=== PATIENT | female | born 1960 | race Caucasian/White ===

== ENCOUNTER 2020-09-07 19:32 | Emergency (ER) | payer OTHER, SELFPAY ==
--- NOTE | ~2020-09-07 | CT_ITS ---
EXAMINATION: CT brain wo con, CT facial bones wo con DATE: 09/07/2020 20:29 INDICATION: Head and facial injury post fall TECHNIQUE: 1. Computed tomography (CT) of the head was performed without intravenous contrast. Sagittal and agueda nal reconstructions were obtained. Automated exposure control and iterative reconstruction technique were employed. The dose-length product was 681 mGy-cm. 2. CT of the facial bones and maxillofacial region was performed without intravenous contrast. Sagitt al and coronal reconstructions were obtained. Automated exposure control and iterative reconstruction technique were employed. The dose-length product was 536 mGy-cm. COMPARISON: 05/18/2009 FINDINGS: Head CT: No calvarial fracture. Large region of encephalomalacia in the right temporal lobe consistent with ch ronic infarct. Additional small old lacunar infarcts at the left thalamus and left basal ganglia incl uding the head of the caudate nucleus, anterior limb of the internal capsule and lentiform nucleus. T here is moderate scattered white matter hypoattenuation consistent with chronic small vessel ischemic disease. No acute intracranial hemorrhage, acute infarction or abnormal extra axial fluid collection . Ex vacuo dilation of the occipital and temporal horns of the right lateral ventricle. Ventricles ar e otherwise normal. No mass/mass effect. Mastoid air cells and middle ear cavities are clear. Intracr anial calcified cerebral atherosclerosis is noted at the carotid siphons. Maxillofacial CT: Small anterior frontal scalp hematoma. No maxillofacial fractures. Mild mucosal thickening the bilate ral maxillary sinuses. Orbits are normal. IMPRESSION: 1. No fracture or acute intracranial process. 2. Large old infarct in the right temporal lobe and smaller lacunar infarcts at the left thalamus and left basal ganglia. Line 3. Moderate scattered white matter hypoattenuation consistent with chronic small vessel ischemic dise ase. Reviewed, dictated and finalized at location A. IMPRESSION: 1. No fracture or acute intracranial process. 2. Large old infarct in the right temporal lobe and smaller lacunar infarcts at the left thalamus and left basal ganglia. Line 3. Moderate scattered white matter hypoattenuation consistent with chronic smal l vessel ischemic disease.
--- NOTE | ~2020-09-07 | CT_ITS ---
EXAMINATION: CT lumbar spine wo con DATE: 09/07/2020 20:30 INDICATION: Low back pain post injury TECHNIQUE: Computed tomography (CT) of the lumbar spine was performed without intravenous contrast. A utomated exposure control and iterative reconstruction technique were employed. The dose-length produ ct was 1087.13 mGy-cm. COMPARISON: None FINDINGS: Partially visualized mild thoracolumbar dextroscoliosis. 6 mm anterolisthesis L4 on L5. 1-2 mm retrol isthesis T12 on L1 and 2 mm retrolisthesis L1 on L2. Vertebral body heights are normal. No fracture. Moderate to severe disc height loss at L5-S1. Moderate disc height loss at L4-L5. Mild disc height lo ss at T12-L1 and L1-L2. Cholelithiasis. The following disc levels are specifically discussed: T12-L1: Disc is mildly bulging. There is mild bilateral facet joint osteoarthritis. There is no neura l foraminal stenosis. There is no central canal stenosis. L1-L2: Disc is mildly bulging. There is mild bilateral facet joint osteoarthritis. There is mild left neural foraminal stenosis. There is mild central canal stenosis. L2-L3: Disc is bulging. There is mild bilateral facet joint osteoarthritis. There is no neural forami nal stenosis. There is mild central canal stenosis. L3-L4: Disc is bulging. There is mild bilateral facet joint osteoarthritis. There is mild right neura l foraminal stenosis. There is mild central canal stenosis. L4-L5: Disc is bulging. There is hypertrophy of the ligamentum flavum. There is severe bilateral face t joint osteoarthritis. There is mild to moderate bilateral neural foraminal stenosis. There is moder ate central canal stenosis. L5-S1: Small posterior disc osteophyte complex. There is moderate bilateral facet joint osteoarthriti s. There is moderate left and mild right neural foraminal stenosis. There is mild central canal steno sis. IMPRESSION: 1. No acute fracture. 2. Moderate lumbar spondylosis with 6 mm anterolisthesis L4 on L5 resulting in moderate central canal stenosis at this level. Reviewed, dictated and finalized at location A.
[2020-09-07 19:32] VITALS: BP 172/101; PULSE 86; RESP 18; TEMP 36.8; O2SAT 100
--- NOTE | 2020-09-07 20:01 | ED.FALL ---
HPI - Fall General Chief Complaint: Fall Stated Complaint: body aches, freq falls Time Seen by Provider: 09/07/20 19:38 Source: patient Mode of arrival: ambulatory Limitations: no limitations History of Present Illness HPI Narrative: Patient is a 60-year-old female complaining of a fall yesterday after losing her balance, states she hit her forehead and face on the floor. Patient states that she has a history of falls due to balance problems has been going on for a long time, years . Patient also complaining of low back pain but states that it is nothing new since she has a history of a defect of her lower spine. Patient states that her pain is mild and does not want anything for pain. Denies loss of consciousness. Patient denies any headache, neck pain, chest pain, abdominal pain, pelvic pain or any extremity pain/injury. Patient states that she was able to get up and ambulate after her fall. Related Data Allergies Allergy/AdvReac Type Severity Reaction Status Date / Time clindamycin Allergy Unknown Nausea Verified 04/16/18 14:38 hydrochlorothiazide Allergy Unknown Skin Verified 04/16/18 14:38 Reaction Penicillins Allergy Unknown allergic Verified 04/16/18 14:38 since childhood Sulfa (Sulfonamide Allergy Unknown Verified 04/16/18 14:38 Antibiotics) Review of Systems Review of Systems: All systems reviewed & are unremarkable except as noted in HPI and below Constitutional: Constitutional: Denies body ache(s), Denies chills, Denies excessive sweating, Denies fatigue, Denies fever(s), Denies headache(s), Denies lethargy, Denies malaise, Denies weakness and Denies weight loss Eyes: Eyes: Denies blurry vision, Denies change in vision and Denies loss of vision ENT: Denies dizziness, Denies ear discharge, Denies headache(s), Denies lip swelling, Denies epistaxis, Denies nasal congestion, Denies neck pain, Denies throat swelling and Denies tongue swelling Cardiovascular: Cardiovascular: Denies chest pain, Denies chest pain at rest, Denies chest pain with activity, Denies diaphoresis, Denies rapid heart rate, Denies edema, Denies irregular heart rhythm, Denies lightheadedness, Denies palpitations, Denies dyspnea and Denies dyspnea on exertion Respiratory: Respiratory: Denies chest congestion, Denies cough, Denies hemoptysis, Denies dyspnea and Denies dyspnea on exertion Gastrointestinal: Gastrointestinal: Denies abdominal pain, Denies melena, Denies hematochezia, Denies diarrhea, Denies nausea, Denies vomiting and Denies hematemesis Musculoskeletal: Musculoskeletal: Denies abnormal gait, Denies deformity, Denies joint swelling, Denies limited range of motion, Denies neck pain and Denies numbness Neurologic: Denies Abnormal speech present, Denies abnormal gait, Denies confusion, Denies dizziness, Denies headache(s), Denies focal weakness, Denies loss of vision, Denies numbness, Denies Other visual disturbances, Denies Sensory deficit (Neuro) and Denies weakness Psychiatric: Psychiatric: Denies confusion, Denies depression, Denies auditory hallucinations, Denies homicidal ideation and Denies suicidal ideation Endocrine: Endocrine: Denies cold intolerance, Denies excessive sweating, Denies fatigue, Denies heat intolerance and Denies palpitations Hematologic/Lymphatic: Hematologic/Lymphatic: Denies easy bleeding and Denies easy bruising Allergic/Immunologic: Allergic/Immunologic: Denies lip swelling, Denies throat swelling and Denies tongue swelling PMFSH Past Medical History Medical History Unspecified intracranial hemorrhage Family History Family History Father Diabetes mellitus Mother Diabetes mellitus Hypertension Family history of elevated blood lipids Family history of malignant neoplasm of skin Sibling Diabetes mellitus Hypertension Grandparent Family history of malignant neoplasm of
[2020-09-07 20:12] LABS: Glucose Point of Care 100 (65-105)
--- NOTE | 2020-09-07 20:58 | PC.NURSE ---
pt refusing to have blood drawn, Dr. Willard aware.
--- NOTE | 2020-09-07 21:52 | PC.NURSE ---
made contact with [employer] to transfer pt back home eta [id number]
[2020-09-07 23:52] VITALS: BP 156/97; PULSE 79; RESP 16; O2SAT 98
[2020-09-08 01:10] VITALS: BP 131/84; PULSE 78; RESP 16; TEMP 36.3; O2SAT 97
--- NOTE | 2020-09-08 01:20 | PC.NURSE ---
rafiq arrived at 0110
== END 2020-09-08 01:11 | disposition home or self-care (01) ==
PROVIDERS: Emergency Provider Emergency Medicine; PCP Family Medicine
DX: S00.83XA Contusion of other part of head, initial encounter (principal); S00.31XA Abrasion of nose, initial encounter; S39.012A Strain of muscle, fascia and tendon of lower back, initial encounter; W18.39XA Other fall on same level, initial encounter
CPT/HCPCS: 70450; 70486; 72131; 82948; 99284

== ENCOUNTER 2021-04-28 16:59 | Emergency (ER) | payer OTHER, SELFPAY ==
--- NOTE | ~2021-04-28 | XR_ITS ---
XR wrist RT 2V 04/28/2021 18:07 Indication: Right wrist pain after fall Procedure: 2 views right wrist Comparison: No prior studies for comparison. Findings: There is a comminuted extra-articular fracture of the distal radial metaphysis with approxi mately one third bone width dorsal displacement. No significant angulation. Possible nondisplaced dis jennifer ulnar fracture. Mild soft tissue swelling. There is mild osteoarthritis of the first MCP joint. Impression: 1: Comminuted extra-articular fracture distal radial metaphysis with dorsal displacement. 2: Possible nondisplaced distal ulnar metaphyseal fracture. Reviewed, dictated and finalized at location A. ET PREPARATION OPERATOR Impression: 1: Comminuted extra-articular fracture distal radial metaphysis with dorsal dis placement. 2: Possible nondisplaced distal ulnar metaphyseal fracture.
[2021-04-28 17:04] VITALS: BP 158/113; PULSE 60; RESP 18; TEMP 36.1; O2SAT 100
--- NOTE | 2021-04-28 20:31 | ED.GENADULT ---
HPI - General Adult General Chief complaint: Extremity Injury, Upper Stated complaint: Fall with Wrist Injury Time Seen by Provider: 04/28/21 20:10 History of Present Illness HPI narrative: 60-year-old female presents to the emergency department for evaluation of an injury to her right wrist. Patient was using her walker to walk in the garage when she had a ground-level fall during which she fell forward and injured her right wrist. Patient denies any other pain or injury at this time. Patient was transported to the emergency department by EMS. Patient's primary complaint is right wrist pain. Related Data Allergies Allergy/AdvReac Type Severity Reaction Status Date / Time clindamycin Allergy Unknown Nausea Verified 04/16/18 14:38 hydrochlorothiazide Allergy Unknown Skin Verified 04/16/18 14:38 Reaction Penicillins Allergy Unknown allergic Verified 04/16/18 14:38 since childhood Sulfa (Sulfonamide Allergy Unknown Verified 04/16/18 14:38 Antibiotics) Review of Systems Review of Systems: CONSTITUTIONAL: Denies fever, chills, or sweats. EYES: Denies visual changes, redness, or discharge. ENT: Denies rhinorrhea, congestion, sore throat, or otalgia. CARDIOVASCULAR: Denies chest pain, palpitations, or edema. RESPIRATORY: Denies cough or dyspnea. GASTROINTESTINAL: Denies abdominal pain, nausea, vomiting, or diarrhea. GENITOURINARY: Denies dysuria or hematuria. SKIN: Denies rash or itching. MUSCULOSKELETAL: Complaint of right wrist pain. Bruise at right humerus. no right elbow or right shoulder injury. No other musculoskeletal injuries from fall NEUROLOGIC: Denies headache, numbness, or weakness. PSYCHIATRIC: Denies anxiety or depression. PMFSH Past Medical History Medical History Unspecified intracranial hemorrhage Family History Family History Father Diabetes mellitus Mother Diabetes mellitus Hypertension Family history of elevated blood lipids Family history of malignant neoplasm of skin Sibling Diabetes mellitus Hypertension Grandparent Family history of malignant neoplasm of breast Other Family history of cardiovascular disease Social History Social History Alcohol intake: never Exam Narrative: APPEARANCE: Well appearing, no pain in distress, well-nourished. Head normocephalic atraumatic. EYES: PERRLA/EOMI, conjunctivae very clear. NECK: Supple. No adenopathy, no masses. RESPIRATORY: Airway patent, respirations nonlabored. Clear to auscultation bilaterally, no rales, rhonchi, wheezing. CARDIOVASCULAR: Regular rate and rhythm without murmurs rubs or gallops. ABDOMINAL: Soft, nontender, nondistended, no hepatosplenomegally MUSCULOSKELETAl: Moves all extremities. Right wrist is neurovascular intact. NEURO: Alert. Cranial nerves II through XII intact. Good gait. Good coordination SKIN: Warm, dry. Normal Color PSYCHIATRIC: Normal affect/mood, normal interaction with parents. Course Course Emergency Course: Patient was updated on the results of her x-ray and plan for splinting and close follow-up with orthopedics Vital Signs Vital signs: Vital Signs Temperature 97.0 F L 04/28/21 17:04 Pulse Rate 60 04/28/21 17:04 Respiratory Rate 18 04/28/21 17:04 Blood Pressure 158/113 H 04/28/21 17:04 Pulse Oximetry 100 04/28/21 17:04 Temperature 97.0 F L 04/28/21 17:04 Pulse Rate 74 04/28/21 23:20 Respiratory Rate 18 04/28/21 23:20 Blood Pressure 158/113 H 04/28/21 17:04 Pulse Oximetry 98 04/28/21 23:20 Medical Decision Making Vital Signs Vital Signs: Vital Signs Temperature 97.0 F L 04/28/21 17:04 Pulse Rate 60 04/28/21 17:04 Respiratory Rate 18 04/28/21 17:04 Blood Pressure 158/113 H 04/28/21 17:04 Pulse Oximetry 100 04/28/21 17:04 Temperature 97.0 F L 04/28/21 17:04 Puls
[2021-04-28] MEDS: traMADol HCL (*CRX) 50 MG TABLET PO (21:08)
--- NOTE | 2021-04-28 21:16 | PC.NURSE ---
currently waiting for pain medication to take effect before placing spint on R arm/wrist
--- NOTE | 2021-04-28 21:20 | PC.NURSE ---
short arm volar splint applied to right arm for wrist fx. pt refused to straighten wrist after multiple requests made by certified medication technician.
--- NOTE | 2021-04-28 21:58 | PC.NURSE ---
klever to call for EMS transfer back home
--- NOTE | 2021-04-28 22:03 | PC.NURSE ---
called [facility] to request transport. ETA [id number]
--- NOTE | 2021-04-28 23:14 | PC.NURSE ---
[facility] here.
[2021-04-28 23:20] VITALS: PULSE 74; RESP 18; O2SAT 98
== END 2021-04-28 23:20 | disposition home or self-care (01) ==
PROVIDERS: Emergency Provider Emergency Medicine; PCP Family Medicine
DX: S52.551A Other extraarticular fracture of lower end of right radius, initial encounter for closed fracture (principal); S59.091A Other physeal fracture of lower end of ulna, right arm, initial encounter for closed fracture; W18.39XA Other fall on same level, initial encounter
CPT/HCPCS: 29125; 73100; 99283; 99284; A9270

== ENCOUNTER 2021-10-26 08:52 | Observation (INO) | payer OTHER, SELFPAY ==
[2021-10-26] VITALS (24 sets, daily range): BP systolic 107–149; BP diastolic 63–94; PULSE 63–96; RESP 11–20; TEMP 36.2–36.6; O2SAT 96–100; BMI 37.6
--- NOTE | ~2021-10-26 | XR_ITS ---
EXAMINATION: XR chest 1V portable 10/26/2021 09:32 INDICATION: Status post recent falls. PROCEDURE: AP portable chest COMPARISON: No prior studies for comparison. FINDINGS: The lungs are clear. The cardiomediastinal silhouette is within normal limits. There are no pleural effusions. There is no pneumothorax suspected. IMPRESSION: 1: NO ACUTE CARDIOPULMONARY DISEASE. Reviewed, dictated and finalized at location A.
--- NOTE | ~2021-10-26 | CT_ITS ---
EXAMINATION: CT abdomen pelvis wo con DATE: 10/26/2021 09:59 INDICATION: Generalized abdominal pain. Low back pain. TECHNIQUE: Computed tomography (CT) of the abdomen and pelvis was performed without intravenous contr ast. Automated exposure control and iterative reconstruction technique were employed. The dose-length product was 1017.81 mGy-cm. COMPARISON: None. FINDINGS: The visualized portions of the lung bases demonstrate mild atelectasis. No pleural effusion . The heart size is normal. There are coronary artery calcifications. No pericardial effusion. The li bharathi and spleen are normal. There are gallstones in the gallbladder, which is normal in size. The panc reas and right adrenal gland are normal. There is a 10 mm mass in left adrenal gland measuring low-at tenuation, consistent with an adenoma. The kidneys are normal. There is no urolithiasis. There is pro minent fat in the inguinal canals that may be hernias. There is diverticulosis of the colon without e vidence of diverticulitis. There are no dilated loops of bowel. The appendix is normal. There is albert re thoracolumbar spondylosis. Thoracolumbar dextroscoliosis is noted. IMPRESSION: 1. Cholelithiasis. No evidence of acute cholecystitis. Reviewed, dictated and finalized at location D.
--- NOTE | ~2021-10-26 | CT_ITS ---
EXAMINATION: CT brain wo con DATE: 10/26/2021 09:59 INDICATION: Fall with all over body pain TECHNIQUE: Computed tomography (CT) of the head was performed without intravenous contrast. Sagittal and coronal reconstructions were performed. The mA was adjusted according to patient size. Iterative reconstruction technique was employed. The dose-length product was 605.33 mGy-cm. COMPARISON: head CT dated 09/07/2020 FINDINGS: No fracture. Large region of encephalomalacia in the right temporal lobe consistent with chronic infa rct. Additional small old lacunar infarcts at the left thalamus and left basal ganglia including the head of the caudate nucleus, anterior limb of the internal capsule and lentiform nucleus. There is mo derate scattered white matter hypoattenuation consistent with chronic small vessel ischemic disease. No acute intracranial hemorrhage, acute infarction or abnormal extra axial fluid collection. Ex vacuo dilation of the occipital and temporal horns of the right lateral ventricle. Ventricles are otherwis e normal. No mass/mass effect. Mastoid air cells and middle ear cavities are clear. Orbits and parana ruth sinuses are normal. Intracranial calcified cerebral atherosclerosis is noted at the carotid sipho ns. IMPRESSION: 1. No fracture or acute intracranial process. 2. Large old infarct in the right temporal lobe and smaller lacunar infarcts at the left thalamus and left basal ganglia. 3. Moderate scattered white matter hypoattenuation consistent with chronic small vessel ischemic dise ase. Reviewed, dictated and finalized at location A. IMPRESSION: 1. No fracture or acute intracranial process. 2. Large old infarct in the right temporal lobe and smaller lacunar infarcts at the left thalamus and left basal ganglia. 3. Moderate scattered white matter hypoattenuation consistent with chronic smal l vessel ischemic disease.
--- NOTE | ~2021-10-26 | CT_ITS ---
EXAMINATION: CT cervical spine wo con DATE: 10/26/2021 10:00 INDICATION: Neck pain. Fall. TECHNIQUE: Computed tomography (CT) of the cervical spine was performed without intravenous contrast. Automated exposure control and iterative reconstruction technique were employed. The dose-length pro duct was 380.05 mGy-cm. COMPARISON: None FINDINGS: There is 2 mm anterolisthesis of C4 on C5. There is 3 degrees levocurvature of cervicothora cic spondylosis. Vertebral body heights are normal. There is mildly decreased disc height at C4-C5 an d severely decreased disc height at C5-C6 and C6-C7. The following disc levels are specifically discu ssed: C2-C3: There is mild bilateral uncovertebral joint osteoarthritis. There is mild bilateral facet join t osteoarthritis. There is no neural foraminal stenosis. There is no central canal stenosis. C3-C4: There is mild bilateral uncovertebral joint osteoarthritis. There is severe bilateral facet ethan int osteoarthritis. There is mild left neural foraminal stenosis. There is mild central canal stenosi s. C4-C5: There is severe right and moderate left uncovertebral joint osteoarthritis. There is severe bi lateral facet joint osteoarthritis. There is mild bilateral neural foraminal stenosis. There is mild central canal stenosis. C5-C6: There is severe bilateral uncovertebral joint osteoarthritis. There is severe bilateral facet joint osteoarthritis. There is mild bilateral mild neural foraminal stenosis. There is no central can al stenosis. C6-C7: There is severe bilateral uncovertebral joint osteoarthritis. There is mild bilateral facet ethan int osteoarthritis. There is mild bilateral neural foraminal stenosis. There is mild central canal st enosis. C7-T1: There is no uncovertebral joint osteoarthritis. There is severe bilateral facet joint osteoart hritis. There is mild left neural foraminal stenosis. There is no central canal stenosis. IMPRESSION: 1. No fracture. 2. Severe cervical spondylosis. Reviewed, dictated and finalized at location D.
[2021-10-26 08:58] LABS: Glucose Point of Care 89 mg/dl (65-105)
[2021-10-26 09:27] LABS: Basophils Percent Auto 0.5 % (0.2-1.2); Eosinophils Absolute Auto 0.3 K/mm3 (0-0.3); Eosinophils Percent Auto 3.8 % (0-4.4); Hematocrit 40.8 % (37.0-47.0); Hemoglobin 13.3 g/dL (12.0-15.0); Immature Granulocyte Absolute 0.02 K/mm3 (0.00-0.031); Immature Granulocyte Percent A 0.3 % (0-0.5); Lymphocytes Absolute Auto 0.98 K/mm3 (0.9-3.2); Mean Corpuscular HGB Conc 32.6 g/dl (32-36); Mean Corpuscular Hemoglobin 31.4 pg (26-34); Mean Corpuscular Volume 96.5 fl (80-100); Monocytes Absolute Auto 0.5 K/mm3 (0.1-0.6); Neutrophils Absolute Auto 4.7 K/mm3 (1.3-6.7); Neutrophils Percent Auto 72.4 % (45.5-73.1); Platelet Count Result 180 k/mm3 (150-375); Red Blood Count 4.23 M/mm3 (4.2-5.4); Red Cell Distribution Width 13.4 % (11.5-14.5); White Blood Count 6.5 K/mm3 (4.5-10.0)
[2021-10-26 09:35] LABS: Alanine Aminotransferase 24 U/L (6-35); Albumin Level 3.9 g/dL (3.5-5.1); Alkaline Phosphatase 66 U/L (38-126); Anion Gap 6 mmol/L (8-16); Aspartate Amino Transferase 44 U/L (14-36); Bilirubin,Total 2.7 mg/dL (0.2-1.3); Blood Urea Nitrogen 17 mg/dL (7-17); Carbon Dioxide 27 mmol/L (22-30); Chloride 104 mmol/L (98-107); Creatine Kinase 488 U/L (30-135); Estimated Glomerular Filt Rate > 60; Glucose 96 mg/dL (65-110); Potassium 3.5 mmol/L (3.4-5.0); Sodium 137 mmol/L (137-145)
--- NOTE | 2021-10-26 09:43 | PC.NURSE ---
Patient off unit to Radiology.
--- NOTE | 2021-10-26 10:34 | PC.NURSE ---
Patient refuses IV placement and IV fluids. States Just bring me a glass of water and I'll drink it . Dr. Cook made aware.
--- NOTE | 2021-10-26 11:17 | PC.NURSE ---
Patient assisted to [facility] with 2 person assistance. Patient does not transfer well. Does not appear to bear much weight on her legs and needs maximum assistance. When the patient was asked how she was going to be able to care for herself at home she stated that she would lie in her urine soaked diaper on the couch until I need a new one then I'll just crawl and get a new one . Dr. Cook made aware of the patient's weakness.
[2021-10-26 12:25] LABS: Add Urine Microscopic? YES; Appearance Urine Slightly Cloudy (Clear); Bilirubin Urine 2+ (Negative); Blood Urine 2+ (Negative); Color Urine Yellow (Yellow); Glucose Urine UA Negative (Negative); Ketones Urine 4+ mg/dL (Negative); Leukocyte Esterase Ur 1+ LEU/UL (Negative); Nitrate Urine Negative (Negative); Protein Urine 2+ mg/dL (Negative); Specific Grav Ur >= 1.030 (1.001-1.035); Urobilinogen Urine 0.2 mg/dL (<2.0)
[2021-10-26 12:31] LABS: Bacteria Urine Trace /hpf; Mucus Urine Few /lpf; RBC Urine 21-50 /hpf (0-2); Squamous Epithelial Cell Urine Occasional /hpf (Few); WBC Urine 31-50 /hpf
--- NOTE | 2021-10-26 13:51 | PC.NURSE ---
BALTAZAR Chapin attempted to place IV access x2. 2nd attempt successful but patient was unhappy with placement so patient removed IV from hand and threw the catheter at RN.
--- NOTE | 2021-10-26 14:00 | PM.IMHP ---
H&P: HPI History of Present Illness Date/Time: 10/26/21 14:00 Chief Complaint: Fall. Narrative: This is a 61-year-old female with history of intra cerebral hemorrhage, hypertension, hypercholesterolemia, hypothyroidism, anemia, and diabetes who presented to the emergency department via EMS from home for evaluation after a fall. She has lymphedema in her legs and at times they ?feel too bad and heavy? and she occasionally loses her balance and falls. Last evening at around 20:00 she was putting some things away in her room when she stepped backwards, lost her balance, and fell onto her buttocks. She was unable to get herself up or crawl to the phone to call for help so she slept on the floor on a pile of clothes overnight. A neighbor was supposed to take her for physical therapy today and when the patient did not answer the phone she called the police and they sent over officers who were able to get into the home and call for EMS. She thinks that she may have hit her head in the fall but she denies sustaining any injuries. However she did complain of left mid to lower back pain on arrival to the ER. There was no loss of consciousness with the fall and she denies antecedent symptoms prior to the fall. Imaging today showed no acute findings. Aside from a mildly elevated CK, her labs were also pretty unremarkable. Urinalysis was abnormal but appears somewhat contaminated. She denies fever, chills, sweats, cold and flu symptoms, vertigo, focal weakness (aside from baseline weakness), paresthesias, facial droop, dysphagia, dysarthria, chest pain, shortness breast, cough, vomiting, diarrhea, and dysuria. The patient ambulates with a walker at home and she was unable to do so in the ER and she is being admitted in this setting. Review of Systems Review of Systems: Twelve systems were reviewed. She has residual right-sided weakness from a previous intracerebral hemorrhage and she is currently undergoing physical therapy for her right upper extremity. She complains of pain in the shoulder for many months and weakness with difficulties making a fist on the right side although she reports that these are not at all new findings. Earlier in the week she was feeling sick to her stomach and she had a large episode of diarrhea of which she was incontinent however she felt better the next day. Except as documented, all other systems were reviewed and are negative. 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 Lymphedema associated with obesity Migraine headache Mild asthma Mixed hyperlipidemia Other sequelae of other nontraumatic intracranial hemorrhage Overactive bladder Prediabetes Unspecified intracranial hemorrhage Vascular dementia with behavioral disturbance Surgical History Surgical History (Updated 10/26/21 @ 14:12 by Aline Herrera PA-C) History of basal cell carcinoma excision History of tonsillectomy History of total abdominal hysterectomy and bilateral salpingo-oophorectomy (04/2000) Family History Family History Father Diabetes mellitus Family history of cardiovascular disease Mother Family history of elevated blood lipids Diabetes mellitus Family history of malignant neoplasm of skin Hypertension Family history of cardiovascular disease Sibling Diabetes mellitus Hypertension Grandparent Family history of malignant neoplasm of breast Social History Social History (Updated 10/26/21 @ 22:54 by Aline Herrera PA-C) Social History: Surrogate decision maker: Ambar Oh, mother. Code status: Full code. Smoking status: Never smoker Alcohol intake: never Substance use: never Substance use type: does not use Additional living
--- NOTE | 2021-10-26 14:04 | ED.FALL ---
HPI - Fall General Chief Complaint: Fall Stated Complaint: Fall Source: RN notes reviewed History of Present Illness HPI Narrative: Patient presents emergency department from home via EMS for fall. Patient states that she fell around 8 PM last night she states that she was unable to get up at that time and remain on the ground until her neighbor found her today. States she believes she is hit her head but not having loss of consciousness states she does have pain in her head and neck she states that she normally walks with a walker but has been more weak she had been living at home with her mother but her mother recently fell and broke her hips and now she is home by herself she denies any recent illness she denies any fevers or chills chest pain shortness of breath or any other symptoms Related Data Allergies Allergy/AdvReac Type Severity Reaction Status Date / Time clindamycin Allergy Unknown Nausea Verified 10/26/21 09:00 hydrochlorothiazide Allergy Unknown Skin Verified 10/26/21 09:00 Reaction Penicillins Allergy Unknown allergic Verified 10/26/21 09:00 since childhood Sulfa (Sulfonamide Allergy Unknown Rash Verified 10/26/21 09:00 Antibiotics) Review of Systems Review of Systems: Gen.: Denies fevers or chills Eyes: Denies eye pain or visual change ENT: Denies congestion Respiratory: Denies shortness of breath or cough CV: Denies chest pain or palpitations GI: Denies abdominal pain nausea, emesis or diarrhea denies burning, urgency, frequency or hematuria Musculoskeletal: See HPI Neuro: Reports weakness Skin: Denies rash Except as documented, all other systems reviewed and negative [facility] Past Medical History Medical History Unspecified intracranial hemorrhage Family History Family History Father Diabetes mellitus Mother Diabetes mellitus Hypertension Family history of elevated blood lipids Family history of malignant neoplasm of skin Sibling Diabetes mellitus Hypertension Grandparent Family history of malignant neoplasm of breast Other Family history of cardiovascular disease Social History Social History (Updated 10/26/21 @ 14:07 by Geovanni Cook DO) Smoking status: Never smoker Alcohol intake: never Exam Narrative: APPEARANCE: No acute distress, nontoxic, resting in bed EYES: EOMI HEENT: Normocephalic, atraumatic, OMM Neck: No midline tenderness palpation tender palpation bilateral paravertebral muscles CV 5 through 7 RESPIRATORY: No respiratory distress Clear to auscultation bilaterally with no rhonchi wheezing or rales. CARDIOVASCULAR: Regular rate and rhythm without murmurs rubs or gallops. ABDOMINAL: Soft, nondistended diffusely tender to palpation no rebound or guarding MUSCULOSKELETAl: Moves all extremities. No clubbing, cyanosis or edema. No tenderness of bilateral upper or lower extremities Back: No midline thoracic or lumbar tenderness to palpation NEURO: Awake and alert x 3. Following commands, speech normal, no focal deficits SKIN:: Warm, dry. No rashes lesions or abrasions PSYCHIATRIC: Normal affect/mood, Course Course Emergency Course: Patient states she walks with a walker at home nursing staff attempt to get the patient up with a walker patient unable to get up and ambulate secondary to weakness states at home she has been crawling around at times states her mother had been there to help but is now a shelter Discussed with Dr. Vital agrees with plan for admission with PT OT and case management to evaluate Discussed with patient and family results of workup and diagnosis. Discussed need for admission. Patient and family understand and agree to current treatment plan Vital Signs Vital signs: Vital Signs Pulse Rate 71 10/26/21 08:48 Respiratory Rate 16 10/26/21 08:48 Blood Pressure 149/94 H 10/26/21 08:48 Pulse Oxime
--- NOTE | 2021-10-26 14:53 | ADMGEN ---
This patient, Lily Oh, was admitted to 2 Medical Room 253-01. Patient/family oriented to hospital policies and general routines including ID bracelet, bed and alarms, visiting hours, pain management, procedures, bathroom and other care routines, personal items, smoking policy, room service/diet, and visiting hours. Information on how to activate the Rapid Response Team has been discussed. Patient/Family are encouraged to report perceived risks to care and to ask questions if they do not understand what they are told or what they should do. Report received from BALTAZAR Ledesma.
[2021-10-26] MEDS: SODIUM CHLORIDE 0.9% IV 1,000 ML 80 ML IV CONT (15:13)
[2021-10-26 16:43] LABS: Glucose Point of Care 119 mg/dl (65-105)
[2021-10-27 02:00] VITALS: BP 110/75; PULSE 76; RESP 18; TEMP 36.4; O2SAT 99
[2021-10-27 04:48] LABS: Basophils Percent Auto 0.6 % (0.2-1.2); Eosinophils Absolute Auto 0.2 K/mm3 (0-0.3); Hematocrit 36.2 % (37.0-47.0); Hemoglobin 12.1 g/dL (12.0-15.0); Immature Granulocyte Absolute 0.02 K/mm3 (0.00-0.031); Immature Granulocyte Percent A 0.4 % (0-0.5); Lymphocytes Absolute Auto 1.41 K/mm3 (0.9-3.2); Lymphocytes Percent Auto 26.8 % (18.3-44.2); Mean Corpuscular HGB Conc 33.4 g/dl (32-36); Mean Corpuscular Hemoglobin 31.6 pg (26-34); Mean Corpuscular Volume 94.5 fl (80-100); Mean Platelet Volume 9.8 fl (7.4-10.4); Monocytes Absolute Auto 0.5 K/mm3 (0.1-0.6); Monocytes Percent Auto 9.9 % (2.6-8.5); Neutrophils Absolute Auto 3.1 K/mm3 (1.3-6.7); Neutrophils Percent Auto 58.3 % (45.5-73.1); Platelet Count Result 170 k/mm3 (150-375); Red Blood Count 3.83 M/mm3 (4.2-5.4); Red Cell Distribution Width 13.3 % (11.5-14.5); White Blood Count 5.3 K/mm3 (4.5-10.0)
[2021-10-27 05:05] LABS: Alanine Aminotransferase 23 U/L (6-35); Albumin Level 3.2 g/dL (3.5-5.1); Alkaline Phosphatase 57 U/L (38-126); Anion Gap 4 mmol/L (8-16); Aspartate Amino Transferase 36 U/L (14-36); Bilirubin,Total 0.9 mg/dL (0.2-1.3); Blood Urea Nitrogen 16 mg/dL (7-17); Calcium 8.2 mg/dL (8.4-10.2); Carbon Dioxide 25 mmol/L (22-30); Chloride 109 mmol/L (98-107); Estimated Glomerular Filt Rate > 60; Glucose 82 mg/dL (65-110); Potassium 3.2 mmol/L (3.4-5.0); Sodium 138 mmol/L (137-145)
[2021-10-27 06:00] VITALS: BP 131/69; PULSE 71; RESP 20; TEMP 36.1; O2SAT 98
[2021-10-27 06:34] LABS: Free T4 Free Thyroxine Reflex 1.12 ng/dL (0.78-2.19)
[2021-10-27] MEDS: LEVOTHYROXINE SODIUM 125 MCG TABLET PO (07:33)
[2021-10-27] MEDS: POTASSIUM CHLORIDE 20 MEQ TABLET PO (07:33)
[2021-10-27 07:44] LABS: Total Triiodothyronine (T3) 0.97 NG/ML (0.97-1.69)
[2021-10-27] MEDS: SPIRONOLACTONE 50 MG TABLET PO (08:59)
[2021-10-27] MEDS: amLODIPine BESYLATE 5 MG TABLET PO (08:59)
[2021-10-27] MEDS: lisinopriL 20 MG TABLET 40 MG PO (08:59)
[2021-10-27] MEDS: SIMVASTATIN 10 MG TABLET PO (08:59)
--- NOTE | 2021-10-27 09:04 | PM.IMPN ---
Progress Note: A&P Assessment and Plan (1) Fall from ground level: Code(s): W18.30XA - Fall on same level, unspecified, initial encounter Status: Acute Assessment and Plan: Patient ambulates with a walker at home as she has gait problems chronically. CT brain showing no acute findings but old CVAs noted. CT C-spine showing no acute findings. Continue PT/OT. Continue fall precautions. SNF being planned. (2) Rhabdomyolysis: Code(s): M62.82 - Rhabdomyolysis Status: Acute Assessment and Plan: Total CK 488 but not consistent with rhabdo. UA with 2+ blood but has RBC noted. Was treated with IV fluids but will stop today. (3) Abnormal urinalysis: Code(s): R82.90 - Unspecified abnormal findings in urine Status: Acute Assessment and Plan: Urine looks contaminated and she has no symptoms of UTI. Awaiting UCx results but Abx on hold at this time. Follow up on Urine culture. (4) Essential hypertension: Code(s): I10 - Essential (primary) hypertension Status: Acute Assessment and Plan: Patient's blood pressure was reviewed on 10/27 Blood pressure remains well controlled. Will continue current medications. (5) Prediabetes: Code(s): R73.03 - Prediabetes Status: Acute Assessment and Plan: Recent hemoglobin A1c was 5.4%. The patient's blood glucose was reviewed on 10/27 Glucose remains well controlled. Continue AccuCheks covering with sliding scale. Hypoglycemia protocol available as needed.Continue to hold metformin while hospitalized. (6) Hypothyroidism: Code(s): E03.9 - Hypothyroidism, unspecified Status: Acute Assessment and Plan: TSH elevated at 13.5 but FT4 normal. She does live home alone so may not be taking her medications correctly. Since the FT4 is normal, would monitor for now and repeat levels in 1 month. Continue with levothyroxine at current dose. (7) Hyperbilirubinemia: Code(s): E80.6 - Other disorders of bilirubin metabolism Status: Acute Assessment and Plan: Total bili was 2.7 on admission but now normal. This was not fractionated. CT scan showing cholelithiasis but not acute cholecystitis. She is eating now so suspect this was Gilbert. Subjective Date/time seen: 10/27/21 09:04 Interval history: 61yo female with hx of CVA, HTN and DM here for falls and weakness. Assuming care. Chart reviewed. Patient has obvious right wrist deformity and she states this is a known right wrist fracture. She states that she is being followed by a surgeon with plans to have this surgically repaired sometime in the future. She denies any further nausea or vomiting. No further diarrhea. Eating well. Exam Narrative: AF 97.0 131/69 71 20 98% ra Gen - NARD Chest - CTA bilaterally, nml RR CV - RRR S1/S2 Abd - Soft, NT/ND, Positive BS Ext - No pedal edema. Obvious right wrist bony deformity. Right hand is edematous. Neuro -right hand is weak related fracture. She is able to sit at the side of the bed unassisted but leans to the right when she tries to stand. Psych - Nml mood and affect. Anxious at times Skin - Warm and dry. Chronic hyperpigmentation of the lower legs bilaterally. Objective Data Vital Signs Vital Signs: Vital Signs - 24 hr 10/26/21 09:15 10/26/21 09:30 10/26/21 09:35 Temperature Pulse Rate 81 75 68 Respiratory Rate 14 11 L 12 Blood Pressure 147/75 H Pulse Oximetry 100 100 100 Oxygen Delivery 10/26/21 09:57 10/26/21 10:00 10/26/21 10:15 Temperature Pulse Rate 69 77 75 Respiratory Rate 13 17 16 Blood Pressure Pulse Oximetry 99 98 98 Oxygen Delivery 10/26/21 10:30 10/26/21 10:45 10/26/21 12:06 Temperature 97.9 F Pulse Rate 64 63 Respiratory Rate 12 12 Blood Pressure Pulse Oximetry 100 99 Oxygen Delivery 10/26/21 12:05 10/26/21 12:15 10/26/21 12:16 Temperature Pulse Rate Respirato
[2021-10-27 13:31] VITALS: BP 110/75; PULSE 76; RESP 18; TEMP 36.4; O2SAT 99
[2021-10-27 21:35] VITALS: BP 125/79; PULSE 70; RESP 21; TEMP 36.7; O2SAT 100
[2021-10-27 23:40] VITALS: O2SAT 98
[2021-10-28 05:26] LABS: Anion Gap 2 mmol/L (8-16); Blood Urea Nitrogen 14 mg/dL (7-17); Carbon Dioxide 29 mmol/L (22-30); Chloride 110 mmol/L (98-107); Creatine Kinase 124 U/L (30-135); Estimated Glomerular Filt Rate > 60; Glucose 94 mg/dL (65-110); Magnesium 1.6 mg/dL (1.6-2.3); Potassium 3.7 mmol/L (3.4-5.0); Sodium 141 mmol/L (137-145)
[2021-10-28 05:30] VITALS: BP 141/84; PULSE 62; RESP 20; TEMP 36.2; O2SAT 99
[2021-10-28] MEDS: LEVOTHYROXINE SODIUM 125 MCG TABLET PO (05:36)
[2021-10-28] MEDS: amLODIPine BESYLATE 5 MG TABLET PO (08:50)
[2021-10-28] MEDS: SIMVASTATIN 10 MG TABLET PO (08:50)
[2021-10-28] MEDS: lisinopriL 20 MG TABLET 40 MG PO (08:50)
[2021-10-28] MEDS: SPIRONOLACTONE 50 MG TABLET PO (08:50)
[2021-10-28] MEDS: ENOXAPARIN 40 MG/0.4 ML SYRINGE SUB-Q (08:50)
[2021-10-28 14:00] VITALS: BP 138/88; PULSE 69; RESP 16; TEMP 36.1; O2SAT 99
--- NOTE | 2021-10-28 15:41 | PM.IMPN ---
Progress Note: A&P Assessment and Plan (1) Fall from ground level: Code(s): W18.30XA - Fall on same level, unspecified, initial encounter Status: Acute Assessment and Plan: Patient ambulates with a walker at home as she has gait problems chronically. CT brain showing no acute findings but old CVAs noted. CT C-spine showing no acute findings. No clear reason for the fall but suspect that she was off balance causing the fall. B12 normal in September. TSH noted but could be related to taking her medications incorrectly. No evidence of infectious process. Continue PT/OT. Continue fall precautions. SNF being planned. (2) Rhabdomyolysis: Code(s): M62.82 - Rhabdomyolysis Status: Acute Assessment and Plan: Total CK 488 but not consistent with rhabdo. UA with 2+ blood but has RBC noted. Was treated with IV fluids but since have been stopped. Repeat TCK 124. Resolved. (3) Abnormal urinalysis: Code(s): R82.90 - Unspecified abnormal findings in urine Status: Acute Assessment and Plan: Urine looks contaminated and she has no symptoms of UTI. UCx negative thus UA related to contaminated specimen. Resolved. (4) Essential hypertension: Code(s): I10 - Essential (primary) hypertension Status: Acute Assessment and Plan: Patient's blood pressure was reviewed on 10/28 Blood pressure remains well controlled. Will continue current medications. (5) Prediabetes: Code(s): R73.03 - Prediabetes Status: Acute Assessment and Plan: Recent hemoglobin A1c was 5.4%. The patient's blood glucose was reviewed on 10/28 Glucose remains well controlled. Continue AccuCheks covering with sliding scale. Hypoglycemia protocol available as needed. Continue to hold metformin while hospitalized. (6) Hypothyroidism: Code(s): E03.9 - Hypothyroidism, unspecified Status: Acute Assessment and Plan: TSH elevated at 13.5 but FT4 normal. She does live home alone so may not be taking her medications correctly. Since the FT4 is normal, would monitor for now and repeat levels in 1 month before making an adjustment. Continue with levothyroxine at current dose. (7) Hyperbilirubinemia: Code(s): E80.6 - Other disorders of bilirubin metabolism Status: Acute Assessment and Plan: Total bili was 2.7 on admission but now normal. This was not fractionated. CT scan showing cholelithiasis but not acute cholecystitis. She is eating now so suspect this was Zaid. Subjective Date/time seen: 10/28/21 15:41 Interval history: 61yo female with hx of CVA, HTN and DM here for falls and weakness. No complaints excpet she has the persistent (chronic) back pain. No CP or SOB. Eating okay. Exam Narrative: AF 97.0 138/88 69 16 99% ra Gen - NARD Chest - CTA bilaterally, nml RR CV - RRR S1/S2 Abd - Soft, NT/ND, Positive BS Ext - No pedal edema. Neuro - AOx4. speech clear Psych - Nml mood and affect. Skin - Warm and dry. Objective Data Vital Signs Vital Signs: Vital Signs - 24 hr 10/27/21 21:35 10/27/21 23:40 10/28/21 05:30 Temperature 98.0 F 97.2 F L Pulse Rate 70 62 Respiratory Rate 21 H 20 Blood Pressure 125/79 141/84 H Pulse Oximetry 100 98 99 Oxygen Delivery Room Air 10/28/21 08:00 10/28/21 14:00 Temperature 97 F L Pulse Rate 69 Respiratory Rate 16 Blood Pressure 138/88 Pulse Oximetry 99 Oxygen Delivery Room Air Intake/Output Intake/Output: Intake & Output 10/25/21 10/26/21 10/27/21 10/28/21 23:59 23:59 23:59 23:59 Intake Total 590 1500 600 Output Total 650 1350 Balance 590 850 -750 Meds/Results Medications: Active Medications Generic Name Dose Route Start Last Admin Trade Name Jamesq PRN Reason Stop Dose Admin Amlodipine Besylate 5 mg 10/27/21 09:00 10/28/21 08:50 Amlodipine Besylate 5 Mg Tablet PO 5 mg DAILY DELBERT Administration Enoxaparin Sodium 40
[2021-10-28 21:26] VITALS: O2SAT 97
[2021-10-28 22:00] VITALS: BP 141/78; PULSE 80; RESP 20; TEMP 36.4; O2SAT 98
[2021-10-29] MEDS: LEVOTHYROXINE SODIUM 125 MCG TABLET PO (05:57)
[2021-10-29 06:00] VITALS: BP 114/74; PULSE 61; RESP 20; TEMP 36.2; O2SAT 98
--- NOTE | 2021-10-29 07:27 | PM.IMPN ---
Progress Note: A&P Assessment and Plan Plan Awaiting SNF placement at this time. Subjective Date/time seen: 10/29/21 07:27 Objective Data Vital Signs Vital Signs: Vital Signs - 24 hr 10/28/21 08:00 10/28/21 14:00 10/28/21 21:26 Temperature 97 F L Pulse Rate 69 Respiratory Rate 16 Blood Pressure 138/88 Pulse Oximetry 99 97 Oxygen Delivery Room Air Room Air 10/28/21 22:00 Temperature 97.6 F Pulse Rate 80 Respiratory Rate 20 Blood Pressure 141/78 H Pulse Oximetry 98 Oxygen Delivery Intake/Output Intake/Output: Intake & Output 10/26/21 10/27/21 10/28/21 10/29/21 23:59 23:59 23:59 23:59 Intake Total 590 1500 600 Output Total 650 1650 Balance 590 850 -1050 Meds/Results Medications: Active Medications Generic Name Dose Route Start Last Admin Trade Name Freq PRN Reason Stop Dose Admin Amlodipine Besylate 5 mg 10/27/21 09:00 10/28/21 08:50 Amlodipine Besylate 5 Mg Tablet PO 5 mg DAILY DELBERT Administration Enoxaparin Sodium 40 mg 10/28/21 09:00 10/28/21 08:50 Enoxaparin 40 Mg/0.4 Ml Syringe SUB-Q 40 mg DAILY DELBERT Administration Levothyroxine Sodium 125 mcg 10/27/21 06:30 10/29/21 05:57 Levothyroxine Sodium 125 Mcg Tablet PO 125 mcg DAILY@0630 DELBERT Administration Lisinopril 40 mg 10/27/21 09:00 10/28/21 08:50 Lisinopril 20 Mg Tablet PO 40 mg QAM DELBERT Administration Simvastatin 10 mg 10/27/21 09:00 10/28/21 08:50 Simvastatin 10 Mg Tablet PO 10 mg DAILY DELBERT Administration Spironolactone 50 mg 10/27/21 09:00 10/28/21 08:50 Spironolactone 50 Mg Tablet PO 50 mg DAILY DELBERT Administration Radiology Results: ITS Impressions Chest X-Ray 10/26/21 09:33 IMPRESSION: 1: NO ACUTE CARDIOPULMONARY DISEASE. Head CT 10/26/21 10:00 IMPRESSION: 1. No fracture or acute intracranial process. 2. Large old infarct in the right temporal lobe and smaller lacunar infarcts at the left thalamus and left basal ganglia. 3. Moderate scattered white matter hypoattenuation consistent with chronic small vessel ischemic disease. Abdomen/Pelvis CT 10/26/21 10:04 IMPRESSION: 1. Cholelithiasis. No evidence of acute cholecystitis. Cervical Spine CT 10/26/21 10:09 IMPRESSION: 1. No fracture. 2. Severe cervical spondylosis. Quality VTE Prophylaxis VTE prophylaxis: mechanical ordered
[2021-10-29] MEDS: ENOXAPARIN 40 MG/0.4 ML SYRINGE SUB-Q (08:23)
[2021-10-29] MEDS: SPIRONOLACTONE 50 MG TABLET PO (08:23)
[2021-10-29] MEDS: amLODIPine BESYLATE 5 MG TABLET PO (08:23)
[2021-10-29] MEDS: SIMVASTATIN 10 MG TABLET PO (08:23)
[2021-10-29] MEDS: lisinopriL 20 MG TABLET 40 MG PO (08:23)
--- NOTE | 2021-10-29 13:15 | PM.DS ---
DS: Admitting Diagnosis Discharge Date 10/29/21 Admitting Diagnosis Fall from ground level DS: Discharge Diagnosis Discharge Diagnosis (1) Fall from ground level: Code(s): W18.30XA - Fall on same level, unspecified, initial encounter Status: Acute Assessment and Plan: CT head w/ no acute findings. CT c sine showed no acute findings. Still has some soreness from laying on the floor for 12 hours but no findings on exam today. Patient will be discharged to [facility] today. (2) Rhabdomyolysis: Code(s): M62.82 - Rhabdomyolysis Status: Acute Assessment and Plan: CK 124 to day and was 488 on admission. Resolved. (3) Abnormal urinalysis: Code(s): R82.90 - Unspecified abnormal findings in urine Status: Acute Assessment and Plan: Given two doses of levofloxacin in the ED. Urine culture showed mixed ousmane and no infection. Antibiotics were not continued on the floor. (4) Essential hypertension: Code(s): I10 - Essential (primary) hypertension Status: Acute Assessment and Plan: Continue on amlodipine 5 mg daily, lisinopril 40 mg po daily and spironolactone 50 mg daily. (5) Prediabetes: Code(s): R73.03 - Prediabetes Status: Acute Assessment and Plan: A1c 5.4. Will need follow up with PCP. (6) Hypothyroidism: Code(s): E03.9 - Hypothyroidism, unspecified Status: Acute Assessment and Plan: TSH elevated but free t4 within range. Recommendation is for treatment of TSH > 10. Will defer to PCP to make additional adjustments outpatient. Repeat thyroid labs in one month. (7) Hyperbilirubinemia: Code(s): E80.6 - Other disorders of bilirubin metabolism Status: Acute Assessment and Plan: Total bili was 2.7 on admission but now normal. This was not fractionated. CT scan showing cholelithiasis but not acute cholecystitis. She is eating now so suspect this was Gilbert. Resolved. 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 Patient fell around 1999 on 10/25 and was unable to get up. She slept in her closet on some clothes. Patient was scheduled for outpatient PT. Patient's ride to PT was unable to reach the patient, so the police were called. The police found the patient down and called EMS, who transported the patient to the ed. Patient had contaminated UA that grew mixed ousmane on urine culture. Patient had CT cervical spine, which showed no fracture and CT head, which showed no acute intracranial process. CK mildly elevated at 488 on presentation, but this resolved with hydration. Bilirubin was mildly elevated but this resolved. Thyroid stimulating hormone was elevated but free t4 was normal. Patient advised to recheck thyroid labs in one month and allow PCP to make any necessary adjustments based on labs. Patient seen and evaluated by physical and occupational therapy. Patient determined to be appropriate for senior living with therapy. Patient discharged to [facility]. Time Spent with Patient Time attestation: Total time spent providing and/or coordinating discharge services: Exam Narrative: GENERAL: NAD, cooperative HEENT: Normocephalic, atraumatic, anicteric NECK: Supple CV: Normal S1, S2, RRR, No MRG RESP: CTAB, Normal work of breathing. Back: Kyphosis noted. Palpation of thoracolumbar spine showed no deformity or tenderness. EXTREMITIES: Warm and well perfused, no clubbing, cyanosis, or edema. SKIN: warm, dry and intact. NEURO: CN 2-12 grossly intact. RUE weakness DS: Data Imaging Radiologist's impression: ITS Impressions Chest X-Ray 10/26/21 09:33 IMPRESSION: 1: NO ACUTE CARDIOPULMONARY DI
[2021-10-29 13:49] VITALS: BP 140/82; PULSE 69; RESP 16; TEMP 36.2; O2SAT 96
[2021-10-29 14:13] VITALS: O2SAT 98
== END 2021-10-29 16:08 ==
LOC: ANHED 09:28 → ANH2MED 14:09
PROVIDERS: Internal Medicine; Physician Assistant; Admitting Provider Internal Medicine; Emergency Provider Emergency Medicine; PCP Family Medicine; Visit Provider Family Medicine
DX: M62.82 Rhabdomyolysis (principal); S00.93XA Contusion of unspecified part of head, initial encounter; S16.1XXA Strain of muscle, fascia and tendon at neck level, initial encounter; E80.6 Other disorders of bilirubin metabolism; R53.1 Weakness; R26.89 Other abnormalities of gait and mobility; R82.90 Unspecified abnormal findings in urine; W18.30XA Fall on same level, unspecified, initial encounter; I10 Essential (primary) hypertension; E03.9 Hypothyroidism, unspecified; R73.03 Prediabetes; D64.9 Anemia, unspecified; R60.0 Localized edema; I69.359 Hemiplegia and hemiparesis following cerebral infarction affecting unspecified side; J45.909 Unspecified asthma, uncomplicated; E78.2 Mixed hyperlipidemia; F01.50 Vascular dementia, unspecified severity, without behavioral disturbance, psychotic disturbance, mood disturbance, and anxiety; E66.9 Obesity, unspecified; Z68.37 Body mass index [BMI] 37.0-37.9, adult; Z79.84 Long term (current) use of oral hypoglycemic drugs
CPT/HCPCS: 36415; 70450; 71045; 72125; 74176; 80048; 80053; 81001; 82550; 82948; 83735; 84439; 84443; 84480; 85025; 87086; 87088; 96365; 96366; 96372; 97110; 97162; 97166; 97530; 99285; A9270; G0378; G0379; J1650; J1956; J7030

== ENCOUNTER 2022-03-13 13:34 | Outpatient (RCR) | payer OTHER, SELFPAY ==
[2022-03-13 13:40] VITALS: BP_SYST 100
--- NOTE | 2022-03-13 16:23 | PTOPEVDC ---
Assessment and note entered by John Paul Cameron, PT Thank you for referring Lily Oh to [facility].? An evaluation has been completed. No further treatment is needed. Evaluation Information Assessment Status Evaluation Diagnosis R shoulder pain, R shoulder impingement, R shoulder Rotator cuff injury Onset unknown Subjective Information Patient reports that she is unable to use her R arm to help her with ADL's including dressing, cooking, and bathing. Patient reports she hasn't been able to use her RUE since a fall a year and a half ago, but it is more because of her wrist than her shoulder and she has learned how to get around and do things although they take her a long time. Has more complaints about her low and mid back pain. (Therapist asks if patient would like him to check and see if we can get a MD order to evaluate her back and she reports no.) Give up while you are behind and I am just a cripple were mentioned numerous times throughout the evaluation Reported Pain Level Pain Score Severe Pain: Jackson Prashant Assessment PT Clinical Summary Lily is a 61 year old female coming into the clinic with R shoulder pain. Patient appears to have decreased range of motion in the R shoulder along with weakness and poor posture along with inability to use her R shoulder functionally. Patient is very discouraging and negative in attitude. At the same time she reports she is not going to do any exercises at home and she does not even want to be doing therapy. Informed patient that it is her choice to do therapy and no one elses. We could work on her posture, arms, gait, and back if she wants to, but she does have to be able to participate with us and not just refuse or state she is not going to better so why try. Patient reports she can live with the shoulder issues and she has had them for a long time and does not need to do therapy for her shoulder. Plan of Care PT Services Indicated No Treatment Frequency and evaluation only Duration
== END 2022-03-14 07:22 | disposition home or self-care (01) ==
LOC: ANHPT 13:34
PROVIDERS: PCP Family Medicine; Visit Provider Family Medicine Sports Medicine
DX: M25.511 Pain in right shoulder (principal); M75.101 Unspecified rotator cuff tear or rupture of right shoulder, not specified as traumatic; M75.41 Impingement syndrome of right shoulder; G89.29 Other chronic pain
CPT/HCPCS: 97162

== ENCOUNTER 2024-01-07 14:49 | Outpatient (CLI) | payer OTHER, SELFPAY ==
--- NOTE | ~2024-01-07 | MM_ITS ---
EXAMINATION: MM screening jody BI w rupal HISTORY: Screening TECHNIQUE: Craniocaudal and mediolateral oblique 3-D tomosynthesis images were obtained and synthetic 2-D images were generated. CAD analysis was submitted and interpreted. COMPARISON: 04/10/2018 BREAST PARENCHYMAL COMPOSITION: Not dense: There are scattered areas of fibroglandular density. FINDINGS: There is no evidence of suspicious mass, calcification, or architectural distortion to sugg est malignancy in either breast. There has been no suspicious interval change. IMPRESSION: 1. No mammographic evidence of malignancy. 2. Recommend routine screening mammography in one year. BI-RADS Category 1: Negative Reviewed, dictated and finalized at location B.
== END 2024-01-07 14:50 | disposition home or self-care (01) ==
LOC: ANHIMG 14:50
PROVIDERS: PCP Family Medicine; Visit Provider Family Medicine
DX: Z12.31 Encounter for screening mammogram for malignant neoplasm of breast (principal)
CPT/HCPCS: 77063; 77067

== ENCOUNTER 2024-08-20 13:44 | Emergency (ER) | payer MEDICARE, MEDICAID, SELFPAY ==
--- NOTE | ~2024-08-20 | XR_ITS ---
XR foot RT 2V Ordering provider: Go Cowart MD History: . Foot pain, fall . Comparison: None. FINDINGS: BONES: Lucency at the base of the fifth metatarsal bone is seen which may indicate a fracture. Clinic al correlation for tenderness in the area and follow-up advised. Osteopenia of the bones. Postoperati ve changes in the tarsal bones. JOINT SPACES: Narrowing of the proximal and distal interphalangeal joints. No tarsal coalition. SOFT TISSUES: Normal. IMPRESSION: Possible fracture at the base of the fifth metatarsal bone with displacement. Clinical correlation a nd follow-up advised. Polyarticular osteoarthritic changes. Reviewed, dictated and finalized at location A. IMPRESSION: Possible fracture at the base of the fifth metatarsal bone with displacement. Clinical correlation and follow-up advised. Polyarticular osteoarthritic changes.
--- NOTE | ~2024-08-20 | XR_ITS ---
XR ankle RT min 3V Ordering provider: Go Cowart MD History: . Fall, Redness pain . Comparison: None. FINDINGS: BONES: No acute fracture or dislocation. Postoperative changes in the tarsal bones. JOINT SPACES: Bhavin rowing of the ankle joint. SOFT TISSUES: Soft tissue swelling over the medial and lateral malleoli. IMPRESSION: No acute osseous abnormality of the right ankle. Postoperative changes in the foot. Moderate Osteoarthritic changes of the ankle joint. Reviewed, dictated and finalized at location A. IMPRESSION: No acute osseous abnormality of the right ankle. Postoperative changes in the f oot. Moderate Osteoarthritic changes of the ankle joint.
[2024-08-20 13:44] VITALS: BP 123/83; PULSE 96; RESP 20; TEMP 37.2; O2SAT 98
--- NOTE | 2024-08-20 14:12 | PC.NURSE ---
patient states that she was forced to come here and states that she does not want any labwork done, or medication, and no ivs
--- OUTSIDE RECORDS SUMMARY | 2024-08-20 14:48 | XMS_ITS | Clinical Summary ---
Author Organization [facility] Address [address] [place] [address] Care Team Providers Care Licensed Insurance Sales Agent Name Role Phone Rubi Grace MD Primary Care Provider + Allergies Active Allergy Reactions Criticality Noted Date Comments Clindamycin Unknown 12/19/2021 Hydrochlorothiazide Unknown 12/19/2021 Penicillins Anaphylaxis,Unknown High 05/09/2021 Sulfa (Sulfonamide Antibiotics) Anaphyla xis,Itching,R edson High 05/09/2021 Medications morphine (MSIR) 15 mg tabletIndicatio ns:Severe Pain Take 1 tablet (15 mg total) by mouth every 6 (six) hours as needed for pain 8 tablet Active amLODIPine (NORVASC) 5 mg tabletIndicatio ns:hypertension Take 5 mg by mouth daily Active benazepriL (LOTENSIN) 40 mg tabletIndicatio ns:hypertension Take 40 mg by mouth daily Active bisacodyL (DULCOLAX) 10 mg suppositoryIndi cations:constip ation Insert 10 mg into the rectum as needed for constipation PRN constipation Active cholecalciferol (VITAMIN D-3) 1,000 unit Take 1,000 Units by mouth daily Active magnesium citrate solutionIndicat ions:constipati on Take 296 mL by mouth as needed PRN constipation Active bisacodyL (FLEET-BISACODY L) 10 mg/30 mL enemaIndication s:constipation as needed for constipation Active levothyroxine (SYNTHROID) 100 mcg tabletIndicatio ns:hypothyroidi sm Take 100 mcg by mouth nurse clinical before breakfast Active metFORMIN (GLUCOPHAGE) 500 mg tabletIndicatio ns:type 2 diabetes mellitus Take 500 mg by mouth nightly Active magnesium hydroxide (MILK OF MAGNESIA) suspension 400 mg/5 mLIndications:c onstipation 30 mL daily as needed (constipation) Active multivit-min/fe rrous fumarate (MULTI VITAMIN ORAL) Take by mouth daily Active simvastatin (ZOCOR) 10 mg tabletIndicatio ns:hyperlipidem ia Take 10 mg by mouth nightly Active spironolactone (ALDACTONE) 50 mg tablet Take 50 mg by mouth daily Active Active Problems Problem Noted Date Diagnosed Date Essential (primary) hypertension 10/29/2021 Hypothyroidism, unspecified 10/29/2021 Vascular dementia with behavioral disturbance Fracture, Colles, right, closed 05/10/2021 Diabetes mellitus 09/13/2014 Hypercholesterolemia 09/13/2014 Pain of foot 09/23/2012 Pes planus 07/02/2011 Lymphedema 07/02/2011 Late, effect, cerebrovascular disease 07/02/2011 Immunizations Immunization Administration Dates Next Due Influenza, Quadrivalent, Melisa l Culture-based MDCK, Preservative Free, Antibiotic Free, Intramuscular 02/09/2020 Influenza, Quadrivalent, Spl it, Preservative Free, Intramuscular 04/20/2021,02/08/2019 Influenza, Trivalent, IM (MDV) 02/26/2017 Influenza, Trivalent, Preservative Free, Intramu scular 02/19/2016 Social History Tobacco Use Types Packs/Day Years Used Date Smoking Tobacco: Never Personal Safety Answer Date Recorded Getting School Help Needed Not on file 07/09 Comments Unknown Sex and Gender Information Value Date Recorded Sex Assigned at Not on file Legal Sex Female 1:09 PM MARKETING OPERATIONS INTERN Gender Identity Not on file Sexual Orientation Not on file Obstetrics History Last Filed Vital Signs Vital Sign Reading Time Taken Comments Blood Pressure 138/100 02/27/2022 12:09 PM CDT Pulse 77 02/27/2022 12:09 PM CDT Temperature 36.3 C (97.3 F) 05/09/2021 10:20 PM MARKETING OPERATIONS INTERN Respiratory Rate 11 05/10/2021 10:30 AM MARKETING OPERATIONS INTERN Oxygen Saturation 98% 05/10/2021 5:00 PM MARKETING OPERATIONS INTERN Inhaled Oxygen Concentration - - Weight 81.6 kg (180 lb) 02/27/2022 12:09 PM CDT Height 154.9 cm (5' 1 ) 02/27/2022 12:09 PM CDT Body Mass Index 34.01 02/27/2022 12:09 PM CDT Plan of Treatment Health Maintenance Due Date Last Done Comments Albumin Creatinine Ratio, Urine 1960 Breast Cancer Screening-Mammogram 1959 Cervical Cancer Screening 1959 Colon Cancer Screening-Colonoscopy 1959 Depression Screening 1959 Fall Risk Assessment 1960 Hemoglobin A1C 1959 Hepatitis C Screening 1959 Osteoporosis Screening-Bone Density Scan 1959 Dilated Eye Exam 1959 Foot Exam 1959 Lipid Panel 1959 DTaP/Tdap/Td Vaccine (1 - Tdap) 07/25/1970 Hepatitis B Screening 07/25/1977 Pneumococcal vaccine 65+ (1 of 2 - PCV) 07/25/1978 Zoster Vaccine (1 of 2) 07/25/2009 eGFR 05/10/2022 05/10/2021 Covid-19 Vaccine (2 - 2023-2 5 season) 2024 08/16/2020 Influenza Vaccine (#1) 2024 , 02/09/2020, 02/08/2019, Additional history exists Well Visit 65+ 07/25/2024 Procedures Procedure Name Priority Date/Time Associated Diagnosis Comments EGFR STAT 05/10/2021 4:09 PM MARKETING OPERATIONS INTERN from Last 3 Months or Most Recently Relevant to Health Maintenance Results * (ABNORMAL) eGFR (05/10/2021 4:09 PM MARKETING OPERATIONS INTERN) eGFR 79(L) 90 - 130 mL/min/1. 73 m2 [facility] Comment: Interpretive Data Reference Interval Normal >/= 90 mL/min/1.73m2 Mildly decreased* 60 - 89 mL/min/1.73m2 Mildly to moderately decreased 45 - 59 mL/min/1.73m2 Moderately to severely decreased 30 - 44 mL/min/1.73m2 Severely decreased 15 - 29 mL/min/1.73m2 Kidney Failure < 15 mL/min/1.73m2 *Relative to young adult level Estimated glomerular filtration rate is determined by the 2020 CKD-EPI equation recommended by the National Kidney Foundation (A Unifying Approach to GFR Estimation: Recommendations of the NKF-ASK Task Force on Reassessing the Inclusion of Race in Diagnosing Kidney Disease, JASN 2020). The CKD-EPI equation should not be used for patients with unstable renal function and has not been validated in children and those over 70. Current interpretive data was last reviewed 2021. Blood 05/10/2021 4:09 PM MARKETING OPERATIONS INTERN 05/10/2021 4:23 PM MARKETING OPERATIONS INTERN us Delfin Aranda MD PhD LAB BLOOD ORDERABLES Fi nal Result [facility] One [facility] [place] [address] from Last 3 Months or Most Recently Relevant to Health Maintenance Insurance [facility] Care Teams Licensed Insurance Sales Agent Relationship Specialty Start Date End Date Rubi Grace MD PCP - General 05/09/21
--- OUTSIDE RECORDS SUMMARY | 2024-08-20 14:48 | XMS_ITS ---
Author Organization [facility] Care Team Providers Care Assistant Engineer Name Role Phone Alisha Díaz Unavailable Unavailable Allergies and adverse reactions Code CodeSystem Substance Reaction Severity StartDate Concern Status 885987883 SNOMED CT Sulfa Antibiotics Unknown 10/30/[address] Penicillins Unknown 10/30/2021 activ e 5487 RXNORM hydroCHLOROthiazide Unknown 10/30/2021 a ctive 2582 RXNORM Clindamycin Unknown 10/30/2021 active Care Team Name Role Address Phone Organization Dates Alisha Díaz PCP [address] [facility] [place], [address], [place] (Office): : [facility] 10/30/2021 - 12/25/2021 Mental Status Section Date Assessment Total Score Description 12/25/2021 BIMS 15 cognitively int act CAM 0 No delirium ind icated PHQ-9 12 moderate depres adrienne 11/05/2021 BIMS 15 cognitively int act CAM 0 No delirium ind icated PHQ-9 15 moderately albert re depression Problems Problem # Description Date of onset Resolved Date Code CodeSystem Concern Status 1 COGNITIVE COMMUNICATION DEFICIT [address] active 2 ESSENTIAL (PRIMARY) HYPERTENSION [address] active 3 FALL ON SAME LEVEL, UNSPECIFIED, SUBSEQUENT ENCOUNTER [address] active 4 HYPOTHYROIDISM, UNSPECIFIED [address] active 5 MUSCLE WEAKNESS (GENERALIZED) [address] active [address] active 7 [address]YOL[address] active 8 UNSPECIFIED ABNORMAL FINDINGS IN URINE [address] active 9 VASCULAR DEMENTIA WITH BEHAVIORAL DISTURBANCE [address] active Reason for Referral No Reasons for Referral Entered Social History Social History Observation Description Start Date End Date Code Code System Current Smoking Status Tobacco smoking consumption unknown 833363118 SNOMED CT Sex Assigned At Female 1960 91656-0 [facility] Vital Signs Code Code System Vitals Name Values and Units Timing Information 40306-6 [facility] Pain Level Value=0.0 12/25/2021 8310-5 [facility] Body Temperature Value=97.4 Units= F 12/25/2021 26071-4 [facility] O2 % BldC Oximetry Value=96.0 Units= % 12/25/2021 22030-5 [facility] Weight Rkumc=942.8 Units=Lbs 01/2022 2339-0 [facility] Blood Sugar Zfabe=377.0 Units=mg/dL 12/18/2021 9279-1 [facility] Respiratory Rate Value=18.0 Units=/m in 12/17/2021 8462-4 [facility] Blood Pressure-Diastolic Value=66 Un its=mmHg 12/17/2021 8480-6 [facility] Blood Pressure-Systolic Vtcny=730 Un its=mmHg 12/17/2021 8867-4 [facility] Heart rate Value=68.0 Units=/min 12/2021 8302-2 [facility] Height Value=59.0 Units=Inches 10/31/2021
--- OUTSIDE RECORDS SUMMARY | 2024-08-20 14:48 | XMS_ITS | Referral Summary ---
Author Organization [facility] Address [address] [place] [address] Care Team Providers Care Heavy Repairer Name Role Phone Rubi Grace MD Primary [...] ns:hypothyroidi sm Take 100 mcg by mouth compliance spec before breakfast Active metFORMIN (GLUCOPHAGE) 500 mg [...] on file Legal Sex Female 1:09 PM BUTTON BREAKER Gender Identity Not on file Sexual Orientation Not on file Last Filed Vital Signs Vital Sign Reading Time Taken Comments Blood Pressure 138/100 02/27/2022 12:09 PM CDT Pulse 77 02/27/2022 12:09 PM CDT Temperature 36.3 C (97.3 F) 05/09/2021 10:20 PM BUTTON BREAKER Respiratory Rate 11 05/10/2021 10:30 AM BUTTON BREAKER Oxygen Saturation 98% 05/10/2021 5:00 PM BUTTON BREAKER Inhaled Oxygen Concentration - - Weight 81.6 kg (180 lb) 02/27/2022 12:09 PM CDT Height 154.9 cm (5' 1 ) 02/27/2022 12:09 PM CDT Body Mass Index 34.01 02/27/2022 12:09 PM CDT Plan of Treatment Not on file Procedures Procedure Name Priority Date/Time Associated Diagnosis Comments EGFR STAT 05/10/2021 4:09 PM BUTTON BREAKER from Last 3 Months or Most Recently Relevant to Health Maintenance Results * (ABNORMAL) eGFR (05/10/2021 4:09 PM BUTTON BREAKER) eGFR 79(L) 90 - 130 mL/min/1. 73 m2 [facility] Comment: Interpretive Data Reference Interval Normal >/= [...] last reviewed 2021. Blood 05/10/2021 4:09 PM BUTTON BREAKER 05/10/2021 4:23 PM BUTTON BREAKER us Delfin Aranda MD PhD LAB BLOOD ORDERABLES Fi nal Result [facility] One [facility] Department [place] [address] from Last 3 Months or Most Recently Relevant to Health Maintenance Insurance [facility] Care Teams Heavy Repairer Relationship Specialty Start Date End Date Rubi Grace MD PCP - General 05/09/21
--- OUTSIDE RECORDS SUMMARY | 2024-08-20 14:48 | XMS_ITS | Continuity of Care Document ---
Author Organization [facility] Address [address] [place] [address] [address] [place] [address] Phone Care Team Providers Care Tool Keeper Name Role Phone Vasquez OD, Sami Unavailable Unavailable Advance Directives Directive Yes / No Effective Date File Name No Information Encounters Encounter Description Practice Location Reason(s) For Visit Diagnoses Date Provider Providers Copied on Encounter [facility], [address] [place] [address] [address], [place], [place], [id number], [place] tel:[phone] [facility] No Information Nov-0 7-200 6 Vasquez OD Sami. [address] , [address], [place], [address], [place]. tel:[phone] Family History Family Member Type Diagnosis Age At Onset No Information Payers Payer name Insurance type Covered alliance party ID Authoriza tion(s) No Information Social History Type Description Quantity Date Captured Comments Sex Female Smoking Status No Information Chief Complaint And Reason For Visit No Information Reason For Referral Reason For Referral No Information History Of Present Illness Encounter Date Complaint History Of Prese nt Illness No Information Functional Status Date Functional Assessmen t No Information Instructions Date Instruction Additional Infor mation No Information Assessments Type Assessment Date No Information Patient Care Teams Name Effective Dates (start - stop) Status Members No Information
[2024-08-20] MEDS: ACETAMINOPHEN 500 MG TABLET 1000 MG PO (15:00)
--- NOTE | 2024-08-20 16:02 | ED.GENADULT ---
HPI - General Adult General Chief complaint: Extremity Injury, Lower Stated complaint: R ankle pain/edema Time Seen by Provider: 08/20/24 14:32 History of Present Illness HPI narrative: This is a 64-year-old female with a history of lymphedema presenting for foot pain. She was visiting her family member [facility] with their concerned with the way she was walking. The staff at [facility] called ambulance and told her that she needed to come to the hospital for evaluation under threat of reporting her to an unknown hotline. The patient has a history of complete right foot reconstruction and lymphedema which makes it difficult to for her walk. She says that she tripped 2 weeks ago and has been having increased pain since then. Patient denies fevers chills nausea vomiting diarrhea chest pain difficulty breathing or belly pain. Related Data Home Medications ?Medication ?Instructions ?Recorded ?Confirmed ?Last Taken ?Type cholecalciferol (vitamin D3) 25 25 mcg PO DAILY 03/19/23 09/30/23 Unknown History mcg (1,000 unit) capsule Allergies Allergy/AdvReac Type Severity Reaction Status Date / Time hydrochlorothiazide Allergy Unknown Skin Verified 09/30/23 13:36 Reaction Penicillins Allergy Unknown allergic Verified 09/30/23 13:36 since childhood Sulfa (Sulfonamide Allergy Unknown Rash Verified 09/30/23 13:36 Antibiotics) clindamycin AdvReac Unknown Nausea Verified 09/30/23 13:36 [facility] Past Medical History Medical History Basal cell carcinoma Closed fracture distal radius and ulna Essential hypertension 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 Knee pain, left Lymphedema associated with obesity Migraine headache Mild asthma Mixed hyperlipidemia Other sequelae of other nontraumatic intracranial hemorrhage Overactive bladder Prediabetes Rhabdomyolysis Unspecified intracranial hemorrhage Vascular dementia with behavioral disturbance Surgical History Surgical History History of basal cell carcinoma excision History of tonsillectomy History of total abdominal hysterectomy and bilateral salpingo-oophorectomy (04/2000) Family History Family History Father Diabetes mellitus Family history of cardiovascular disease Mother Family history of elevated blood lipids Diabetes mellitus Family history of malignant neoplasm of skin Hypertension Family history of cardiovascular disease Sibling Diabetes mellitus Hypertension Grandparent Family history of malignant neoplasm of breast Social History Social History Social History: Surrogate decision maker: Ambar Oh, mother. Code status: Full code. Smoking status: Never smoker Alcohol intake: never Substance use: never Substance use type: does not use Lack of Transportation: No Lack of Food: Never True Current Housing: I Have Housing Concerned About Future Housing: No Difficulty Paying Gas/Electric Bills: No Difficulty Paying for Meds: No Currently Unemployed: No Education: High School Diploma/GED Difficulty w/ Childcare or Family Care: No Additional living arrangements comments: The patient lives in [place], and her mother's home. 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 Spiritual care concerns: No Exam Narrative: APPEARANCE: No apparent distress. Head: atraumatic. EYES: EOMI, NOSE: Atraumatic NECK: Trachea midline RESPIRATORY: No increased rate of breathing CARDIOVASCULAR: RRR, lymphedema legs bilaterally ABDOMINAL: Non-distended MUSCULOSKELETAl: Focal exam of the right ankle showed chronic appearing deformity with tenderness over the dorsum the foot. No tenderness over the posterior malleoli or the base of the 5th metatarsal. Foot is neurovascularly intact. There is some swelling and warmth to the foot. NEURO: Alert. Moving 4/4 extremities SKIN:: Warm, dry. Normal color PSYCHIATRIC: Normal affect Course Vital Signs Vital signs: Vital Signs Temperature 98.9 F 08/20/24 13:44 Pulse Rate 96 08/20/24 13:44 Respiratory Rate 20 08/20/24 13:44 Blood Pressure 123/83 08/20/24 13:44 Pulse Oximetry 98 08/20/24 13:44 Temperature 98.9 F 08/20/24 13:44 Pulse Rate 96 08/20/24 13:44 Respiratory Rate 08/20/24 13:44 Blood Pressure 123/83 08/20/24 13:44 Pulse Oximetry 98 08/20/24 13:44 Medical Decision Making MDM Narrative Medical decision making narrative: -Course: 64-year-old female presenting for right foot pain. X-rays were obtained which showed degenerative changes and hardware repair. There was some concern about possible fracture the miss base of the 5th metatarsal but there is no point tenderness in that region. Patient will be treated with a course of Keflex in case this is mild cellulitis. She has been instructed to follow-up with her undercover agent. She has been given referrals to our local undercover agent as well. -DDX includes but is not limited to: Cellulitis, bony injury, soft tissue injury -Co-morbidities complicating care: Lymphedema Vital Signs Vital Signs: Vital Signs Temperature 98.9 F 08/20/24 13:44 Pulse Rate 96 08/20/24 13:44 Respiratory Rate 20 08/20/24 13:44 Blood Pressure 123/83 08/20/24 13:44 Pulse Oximetry 98 08/20/24 13:44 Temperature 98.9 F 08/20/24 13:44 Pulse Rate 96 08/20/24 13:44 Respiratory Rate 20 08/20/24 13:44 Blood Pressure 123/83 08/20/24 13:44 Pulse Oximetry 98 08/20/24 13:44 Discharge Plan Discharge Clinical Impression: Foot pain, Lymphedema Patient Disposition: Home Condition: Stable Instructions: Antibiotic Form, Swollen Joint (ED) Additional Instructions: Please take Tylenol for pain. Please complete course of Keflex. Please follow-up with your undercover agent for further management. If you cannot see your undercover agent you can reach out to our undercover agent listed below. Return if you develop severe pain fevers or if your condition is getting worse. Patient Language: [place] Prescriptions: New cephalexin 500 mg capsule 500 mg PO Q6H Qty: 28 0RF No Action cholecalciferol (vitamin D3) 25 mcg (1,000 unit) capsule 25 mcg PO DAILY levothyroxine 150 mcg tablet 150 mcg PO DAILY Qty: 90 3RF simvastatin 10 mg tablet 10 mg PO DAILY Qty: 90 1RF spironolactone 50 mg tablet 50 mg PO DAILY Qty: 90 1RF amlodipine 5 mg tablet 5 mg PO DAILY Qty: 90 1RF metformin 500 mg tablet extended release 24 hr 500 mg PO HS Qty: 90 1RF benazepril 40 mg tablet 40 mg PO DAILY Qty: 90 1RF Follow-up/Referrals: Roque Rodriguez Jr., DPM [Physician] - 1 Week (Foot pain ) Rubi Grace MD [Primary Care Provider] -
[2024-08-20] MEDS: CEPHALEXIN 500 MG CAPSULE PO (16:08)
== END 2024-08-20 16:57 | disposition home or self-care (01) ==
PROVIDERS: Emergency Provider Emergency Medicine; PCP Family Medicine
DX: M79.671 Pain in right foot (principal); F01.518 Vascular dementia, unspecified severity, with other behavioral disturbance; I89.0 Lymphedema, not elsewhere classified; I10 Essential (primary) hypertension; I69.151 Hemiplegia and hemiparesis following nontraumatic intracerebral hemorrhage affecting right dominant side; I69.298 Other sequelae of other nontraumatic intracranial hemorrhage; J45.909 Unspecified asthma, uncomplicated; E78.2 Mixed hyperlipidemia; E66.9 Obesity, unspecified; Z68.31 Body mass index [BMI] 31.0-31.9, adult; N32.81 Overactive bladder; R73.03 Prediabetes; Z85.828 Personal history of other malignant neoplasm of skin; Z90.710 Acquired absence of both cervix and uterus; Z90.722 Acquired absence of ovaries, bilateral; Z90.79 Acquired absence of other genital organ(s); Z79.899 Other long term (current) drug therapy; Z79.84 Long term (current) use of oral hypoglycemic drugs
CPT/HCPCS: 73610; 73620; 99283; A9270

== ENCOUNTER 2024-08-23 19:23 | Inpatient (IN) | payer MEDICARE, MEDICAID, SELFPAY ==
--- NOTE | ~2024-08-23 | US_ITS ---
EXAMINATION: US venous doppler LE RT DATE: 08/24/2024 14:53 INDICATION: Right lower extremity swelling with a positive d-dimer. Deep venous thrombosis suspected clinically TECHNIQUE: Grayscale ultrasound images without and with compression and Doppler ultrasound images of the right lower extremity veins were obtained. COMPARISON: None. FINDINGS: The visualized portions of right common femoral vein, profunda (deep) femoral vein, femoral vein, pop liteal vein, peroneal veins, posterior tibial veins, and greater saphenous vein outflow are patent. IMPRESSION: 1. No deep venous thrombosis within the right lower extremity, as detailed above. Reviewed, dictated and finalized at location A. IMPRESSION: 1. No deep venous thrombosis within the right lower extremity, as detailed abo ve.
--- NOTE | ~2024-08-23 | CT_ITS ---
CT scan of the right ankle CLINICAL HISTORY: Swelling TECHNIQUE: Following intravenous administration of 100 cc of Omnipaque 350 contrast internal, axial i maging of the right ankle was performed. Sagittal and coronal reformatted images were constructed. Do se reduction technique was used on this scan by utilizing automated exposure control and iterative re construction technique. The dose-length product (DLP) was 395.31 mGy-cm. Findings: Prior orthopedic fusion across the subtalar joints, talonavicular joint, and calcaneocuboid joint. No acute fracture identified. There is severe degenerative change of the tibiotalar joint wit h mild asymmetric widening of the lateral aspect of ankle mortise. Probable large osteochondral lesio n of the lateral corner of the talar dome. There is moderate tibiotalar joint effusion. There is mild diffuse subcutaneous soft tissue edema abo ut the ankle. IMPRESSION: Severe degenerative change of the tibiotalar joint with large probable osteochondral lesion of the la teral corner the talar dome with associated subchondral cystic change on both sides the joint and lisa nt space irregularity. Moderate effusion arising from the tibiotalar joint. Septic arthritis is not excluded. Correlate clin ically. Prior orthopedic fusion of the subtalar joint, talonavicular joint, and calcaneocuboid joint. Mild diffuse subcutaneous soft tissue edema. Correlate for cellulitis. Reviewed, dictated and finalized at [facility]. IMPRESSION: Severe degenerative change of the tibiotalar joint with large probable osteocho ndral lesion of the lateral corner the talar dome with associated subchondral c ystic change on both sides the joint and joint space irregularity. Moderate effusion arising from the tibiotalar joint. Septic arthritis is not ex cluded. Correlate clinically. Prior orthopedic fusion of the subtalar joint, talonavicular joint, and calcane ocuboid joint. Mild diffuse subcutaneous soft tissue edema. Correlate for cellulitis.
--- NOTE | ~2024-08-23 | XR_ITS ---
EXAMINATION: XR lg joint inject/asp w image DATE: 08/24/2024 15:39 INDICATION: Right ankle septic arthritis TECHNIQUE: A time-out was performed to verify the patient's name, date of , and procedure to b e performed. The procedure including the risks, benefits, and alternatives was discussed with the pat ient. Risks discussed included bleeding and infection. The patient understood the risks and agreed to proceed. The skin overlying the anterior right tibiotalar joint was prepped and draped in usual joseph rile fashion. Anesthetic was administered with 1% lidocaine subcutaneously. A 22 G needle was advan mustapha under fluoroscopic guidance into the joint. 6 mL of opaque yellowish fluid was aspirated and sent to lab for Gram stain and cultures. The needle was removed and the entry site was cleaned and dresse d. There were no immediate complications. Fluoroscopy exposure time was 0.1 minutes. The total numbe r of images was 1. Total DAP was 0.066 mGycm^2. FINDINGS: Real-time fluoroscopy demonstrates the needle in the right tibiotalar joint. Postoperative changes with instrumentation for subtalar and talonavicular arthrodesis are seen at the right hindfoo t. IMPRESSION: 1. Successful right tibiotalar arthrocentesis yielding 6 mL of opaque yellow purulent appearing fluid . Reviewed, dictated and finalized at location A. IMPRESSION: 1. Successful right tibiotalar arthrocentesis yielding 6 mL of opaque yellow pu rulent appearing fluid.
--- NOTE | ~2024-08-23 | CT_ITS ---
EXAMINATION: CTA chest PE protocol DATE: 08/24/2024 09:55 INDICATION: Tachycardia. Elevated d-dimer. TECHNIQUE: Computed tomography (CT) pulmonary angiogram of the chest was performed with 100 mL Omnipa que-350 intravenous contrast. Additional 3D reconstructions utilizing coronal maximum intensity proje ction (MIP) were performed. Automated exposure control and iterative reconstruction technique were em ployed. The dose-length product was 606.31 mGy-cm. COMPARISON: None FINDINGS: No pulmonary emboli. Mild atelectasis in the left lower lobe along side the mildly tortuous descendin g thoracic aorta. Additional mild basilar atelectasis in the right lower lobe. No pneumonia, pulmonar y edema, pleural effusion or pneumothorax. Heart size is normal. Atherosclerotic coronary artery calc ifications. Ectatic ascending thoracic aorta measuring up to 4.0 cm. No pericardial effusion. No path ologically enlarged thoracic lymphadenopathy. There is some high attenuation likely ingested material within the distal esophagus. Multiple gallstones within the otherwise normal nondilated gallbladder with no wall thickening or para cholecystic inflammatory stranding to suggest acute cholecystitis. Th ere is excreted contrast within the bilateral renal collecting systems likely related to contrast-enh anced CT from one day prior. Thoracic kyphosis with chronic appearing anterior wedging of multiple mi d to lower thoracic vertebral bodies. There is also a mild lower thoracic levoscoliosis with severe s pondylosis. Healing but still ununited fracture of the posterior right eighth rib. IMPRESSION: 1. Atelectasis in the bilateral lower lobes. No pulmonary embolism or other acute cardiopulmonary dis ease. 2. Cholelithiasis. Reviewed, dictated and finalized at location A. IMPRESSION: 1. Atelectasis in the bilateral lower lobes. No pulmonary embolism or other acu te cardiopulmonary disease. 2. Cholelithiasis.
--- OUTSIDE RECORDS SUMMARY | 2024-08-23 19:25 | XMS_ITS | Clinical Summary ---
Author Organization [facility] Address [address] [place] [address] Care Team Providers Care Case Management Social Worker Name Role Phone Rubi Grace MD Primary [...] ns:hypothyroidi sm Take 100 mcg by mouth inventory analyst before breakfast Active metFORMIN (GLUCOPHAGE) 500 mg [...] on file Legal Sex Female 1:09 PM DIATHERMY EQUIPMENT REPAIRER Gender Identity Not on file Sexual Orientation Not on file Obstetrics History Last Filed Vital Signs Vital Sign Reading Time Taken Comments Blood Pressure 138/100 02/27/2022 12:09 PM CDT Pulse 77 02/27/2022 12:09 PM CDT Temperature 36.3 C (97.3 F) 05/09/2021 10:20 PM DIATHERMY EQUIPMENT REPAIRER Respiratory Rate 11 05/10/2021 10:30 AM DIATHERMY EQUIPMENT REPAIRER Oxygen Saturation 98% 05/10/2021 5:00 PM DIATHERMY EQUIPMENT REPAIRER Inhaled Oxygen Concentration - - Weight 81.6 [...] (2 - 2023-2 5 season) 2024 08/16/2020 Well Visit 65+ 07/25/2024 Influenza Vaccine (Season Ended) 2025 04/20/2021, 02/09/2020, 02/08/2019, Additional history exists Procedures Procedure Name Priority Date/Time Associated Diagnosis Comments EGFR STAT 05/10/2021 4:09 PM DIATHERMY EQUIPMENT REPAIRER from Last 3 Months or Most Recently Relevant to Health Maintenance Results * (ABNORMAL) eGFR (05/10/2021 4:09 PM DIATHERMY EQUIPMENT REPAIRER) eGFR 79(L) 90 - 130 mL/min/1. 73 m2 [facility] Comment: Interpretive Data Reference Interval Normal >/= [...] last reviewed 2021. Blood 05/10/2021 4:09 PM DIATHERMY EQUIPMENT REPAIRER 05/10/2021 4:23 PM DIATHERMY EQUIPMENT REPAIRER us Delfin Aranda MD PhD LAB BLOOD ORDERABLES Fi nal Result [facility] One [facility] Department [place] [address] from Last 3 Months or Most Recently Relevant to Health Maintenance Insurance [facility] Care Teams Case Management Social Worker Relationship Specialty Start Date End Date uRbi Grace MD PCP - General 05/09/21
--- OUTSIDE RECORDS SUMMARY | 2024-08-23 19:25 | XMS_ITS | Continuity of Care Document ---
Author Organization formerly [facility] Address [address] [place] [address] [address] [place] [address] Phone Care Team Providers Care Embedded Developer Name Role Phone Vasquez OD, Sami Unavailable Unavailable Advance Directives Directive Yes / No Effective Date File Name No Information Encounters Encounter Description Practice Location Reason(s) For Visit Diagnoses Date Provider Providers Copied on Encounter [facility], [address] [place] [address] [address], [place], [place], [id number], [place] tel:[phone] [facility] No Information Nov-0 7-200 6 Vasquez OD Sami. [address] , [address], [place], [address], [place]. tel:[phone] Family History Family Member Type Diagnosis Age At Onset No Information Payers Payer name Insurance type Covered green party ID Authoriza tion(s) No Information Social [...]
--- OUTSIDE RECORDS SUMMARY | 2024-08-23 19:25 | XMS_ITS | Referral Summary ---
Author Organization 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 Active metFORMIN (GLUCOPHAGE) 500 mg [...] on file Legal Sex Female 1:09 PM DEXTRINE MIXER Gender Identity Not on file Sexual Orientation Not on file Last Filed Vital Signs Vital Sign Reading Time Taken Comments Blood Pressure 138/100 02/27/2022 12:09 PM CDT Pulse 77 02/27/2022 12:09 PM CDT Temperature 36.3 C (97.3 F) 05/09/2021 10:20 PM DEXTRINE MIXER Respiratory Rate 11 05/10/2021 10:30 AM DEXTRINE MIXER Oxygen Saturation 98% 05/10/2021 5:00 PM DEXTRINE MIXER Inhaled Oxygen Concentration - - Weight 81.6 kg (180 lb) 02/27/2022 12:09 PM CDT Height 154.9 cm (5' 1 ) 02/27/2022 12:09 PM CDT Body Mass Index 34.01 02/27/2022 12:09 PM CDT Plan of Treatment Not on file Procedures Procedure Name Priority Date/Time Associated Diagnosis Comments EGFR STAT 05/10/2021 4:09 PM DEXTRINE MIXER from Last 3 Months or Most Recently Relevant to Health Maintenance Results * (ABNORMAL) eGFR (05/10/2021 4:09 PM DEXTRINE MIXER) eGFR 79(L) 90 - 130 mL/min/1. 73 [...] last reviewed 2021. Blood 05/10/2021 4:09 PM DEXTRINE MIXER 05/10/2021 4:23 PM DEXTRINE MIXER us Delfin Aranda MD PhD LAB BLOOD ORDERABLES Fi nal Result [facility] [place] [address] from Last 3 Months or Most Recently Relevant to Health Maintenance Insurance [facility] Care Teams Inside Wireman Relationship Specialty Start Date End Date Rubi Grace MD PCP - General 05/09/21
[2024-08-23 20:28] VITALS: BP 124/100; PULSE 114; RESP 14; TEMP 37.1; O2SAT 100
[2024-08-23 20:32] LABS: Glucose Point of Care 126 mg/dl (65-105)
--- NOTE | 2024-08-23 21:40 | ED.EXTPRO ---
HPI - Extremity Problem General Chief complaint: Extremity Problem,Nontraumatic Stated complaint: ankle pain Time Seen by Provider: 08/23/24 21:38 Source: patient and RN notes reviewed Mode of arrival: EMS History of Present Illness HPI Narrative: Patient presents with complaint of right ankle pain. EMS had been called for a wellness check as patient's sister was unable to get a hold of her was concerned that she is unable to care for herself. She had been few weeks ago. Was seen within the past week for left leg pain/swelling. At that time she was diagnosed with lymphedema and swelling and prescribed an antibiotic for possible cellulitis but she states that pharmacist refused to fill the prescription unless it was approved by her PCP but she had not been able to get ahold of PCP. Patient states she has not really been able to get up and get water to drink. Unable to walk at all /bear any weight on leg. Nurse notes that the brief/diaper that she arrived in was full of urine and disintegrating. She fell weeks ago. Related Data Home Medications ?Medication ?Instructions ?Recorded ?Confirmed ?Last Taken ?Type cholecalciferol (vitamin D3) 25 25 mcg PO DAILY 03/19/23 08/24/24 Unknown History mcg (1,000 unit) capsule Allergies Allergy/AdvReac Type Severity Reaction Status Date / Time hydrochlorothiazide Allergy Unknown Skin Verified 08/25/24 14:11 Reaction Penicillins Allergy Unknown allergic Verified 08/25/24 14:11 since childhood Sulfa (Sulfonamide Allergy Unknown Rash Verified 08/25/24 14:11 Antibiotics) clindamycin AdvReac Unknown Nausea Verified 08/25/24 14:11 [facility] Past Medical History Medical History CVA (cerebral vascular accident) April 2009 Thyroid disorder Knee pain, left Rhabdomyolysis Basal cell carcinoma 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 Mild asthma Migraine headache Closed fracture distal radius and ulna Lymphedema associated with obesity Other sequelae of other nontraumatic intracranial hemorrhage Mixed hyperlipidemia Overactive bladder Prediabetes Essential hypertension Unspecified intracranial hemorrhage Vascular dementia with behavioral disturbance Surgical History Surgical History History of basal cell carcinoma excision History of total abdominal hysterectomy and bilateral salpingo-oophorectomy (04/2000) History of tonsillectomy Family History Family History Father Diabetes mellitus Family history of cardiovascular disease Mother Family history of elevated blood lipids Diabetes mellitus Family history of malignant neoplasm of skin Hypertension Family history of cardiovascular disease Fall correction resident Sibling Diabetes mellitus Hypertension correction resident Grandparent Family history of malignant neoplasm of breast Social History Social History Social History: Surrogate decision maker: Ambar Oh, mother. Code status: Full code. Smoking status: Never smoker Alcohol intake: never Substance use: unknown Substance use type: does not use Do You Feel Safe in your Home?: Yes Lack of Transportation: No Lack of Food: Never True Current Housing: I Have Housing Concerned About Future Housing: No Difficulty Paying Gas/Electric Bills: No Difficulty Paying for Meds: No Currently Unemployed: No Education: High School Diploma/GED Difficulty w/ Childcare or Family Care: No Additional living arrangements comments: The patient lives in [place], and her mother's home. 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 Spiritual care concerns: No Exam Narrative: GENERAL: In no acute distress although odor of foul smelling urine HEAD: Well healed ecchymosis face EYES: Non injected, non icteric ENT: Nares clear, no rhinorrhea or epistaxis. Dry mucous membrane/tongue NECK: Supple. CHEST: Speaking in full sentences. No respiratory distress. HEART: Tachycardic rate and rhythm. . ABDOMEN: Soft, nondistended. EXTREMITIES: RLE edema and warm erythema along anterior batista and throughout ankle including medial and lateral malleolus SKIN: Warm, dry. NEURO: No focal deficits. Alert and oriented x3. PSYCH: Congruent mood and affect. Course Vital Signs Vital signs: Vital Signs Temperature 98.8 F 08/23/24 20:28 Pulse Rate 114 H 08/23/24 20:28 Respiratory Rate 14 08/23/24 20:28 Blood Pressure 124/100 H 08/23/24 20:28 Pulse Oximetry 100 08/23/24 20:28 Temperature 97.2 F L 08/25/24 18:35 Pulse Rate 85 08/25/24 18:35 Respiratory Rate 16 08/25/24 18:35 Blood Pressure 110/87 08/25/24 18:35 Pulse Oximetry 99 08/25/24 18:35 Oxygen Delivery Nasal Cannula 08/25/24 17:15 Oxygen Flow Rate 2 08/25/24 17:15 MDM - Extremity (Nontraumatic) MDM Narrative Medical decision making narrative: Patient presents with report of right ankle pain. EMS was called for a wellness check as her sister was unable to get a hold of her and patient has been unable to care for herself, nonambulatory due to pain. In the emergency department she is afebrile with vital signs notable for hypertension tachycardia. Patient has a mild leukocytosis. Also thrombocytosis. Alkaline phosphatase level is elevated. It appears per review of the EMR that patient's baseline creatinine ranges from 0.7 - 0.9. Given the mild elevation today, will give 500 cc fluid bolus for mild ANTONETTE. CRP very elevated. She has a marked urinary tract infection. Previous urine culture was from 2021 which grew nothing. Will give ceftriaxone. This should also cover for simple cellulitis. Patient does have an elevated dimer. Unable to obtain ultrasound overnight give staffing/logistical issues. This is ordered as routine to occur tomorrow morning for further workup. ESR mildly elevated. Lactic acid normal. BNP only mildly elevated, not to a degree to suggest acute heart failure by reference range of the assay. Imaging that had been obtained earlier in the week was concerning for possible fracture at the base of the 5th metatarsal. Patient mayl need splinting but will await CT imaging and also await US study to be performed before this can be applied if verified on CT. While arthrocentesis is likely indicated given concern for septic joint, the presence of hardware and overlying cellulitis make this contraindicated in the emergency department. Patient had operative surgical repair done with an orthopedic surgeon in 2014 with a doctor Sebastian/Meng (patient can not recall name) through [employer]. Spoke with NISH Juan Manuel for admission. COnsult placed to ortho.. Differential Diagnosis Differential diagnosis: Likely cellulitis, superficial thrombophlebitis, deep vein thrombosis of lower extremity and other (Osteomyelitis, urinary tract infection, failure to thrive) Medical Records Medical records narrative: Imaging from 08/20/24 is reviewed: IMPRESSION: Possible fracture at the base of the fifth metatarsal bone with displacement. Clinical correlation and follow-up advised. Polyarticular osteoarthritic changes. No acute osseous abnormality of the right ankle. Postoperative changes in the foot. Moderate Osteoarthritic changes of the ankle joint. Lab Data Attestation: I reviewed the patient's lab results. 08/25/24 05:31 08/25/24 05:31 Labs: Lab Results 08/23/24 08/23/24 08/23/24 Range/Units 20:29 21:50 21:51 WBC 10.2 H (4.5-10.0) K/mm3 RBC 4.54 (4.2-5.4) M/mm3 Hgb 13.6 (12.0-15.0) g/dL Hct 43.3 (37.0-47.0) % MCV 95.4 (80-100) fl MCH 30.0 (26-34) pg MCHC 31.4 L (32-36) g/dl RDW 13.4 (11.5-14.5) % Plt Count 380 H D (150-375) k/mm3 MPV 9.8 (7.4-10.4) fl Immature Gran % (Auto) 0.3 (0-0.5) % Neut % (Auto) 76.6 H (45.5-73.1) % Lymph % (Auto) 11.7 L (18.3-44.2) % Mccormick % (Auto) 10.4 H (2.6-8.5) % Eos % (Auto) 0.5 (0-4.4) % Baso % (Auto) 0.5 (0.2-1.2) % Lymph # (Auto) 1.20 (0.9-3.2) K/mm3 Mccormick # (Auto) 1.1 H (0.1-0.6) K/mm3 Eos # (Auto) 0.1 (0-0.3) K/mm3 Baso # (Auto) 0.1 (0.0-0.1) K/mm3 Abs Immat Gran (auto) 0.03 (0.00-0.031) K/mm3 Absolute Neuts (auto) 7.8 H (1.3-6.7) K/mm3 Absolute Nucleated RBC 0.000 (0.0-0.012) K/mm3 Nucleated RBC % 0.0 (0.0-0.2) % ESR 22 H (0-20) mm/hr PT 15.7 H (11.1-14.7) Seconds INR 1.2 APTT 29.4 (22.3-36.8) Seconds D-Dimer 3.49 H (<0.48) ug/mL Sodium 141 (137-145) mmol/L Potassium 4.3 (3.4-5.0) mmol/L Chloride 102 (98-107) mmol/L Carbon Dioxide 23 (22-30) mmol/L Anion Gap 16 H (4-12) mmol/L BUN 27 H D (7-17) mg/dL Creatinine 1.11 H (0.7-1.0) mg/dL Estim Creat Clear Calc Not Reportable Estimated GFR 49 L (59 - ) Glucose 122 H (65-110) mg/dL POC Capillary Glucose 126 H (65-105) mg/dl Hemoglobin A1c 5.5 (<5.7) % Lactic Acid (0.7-2.0) mmol/L Uric Acid (2.5-7.5) mg/dL Calcium 10.0 (8.4-10.2) mg/dL Magnesium 1.6 (1.6-2.3) mg/dL Total Bilirubin (0.2-1.3) mg/dL AST (14-36) U/L ALT (6-35) U/L Alkaline Phosphatase (38-126) U/L Total Creatine Kinase (30-135) U/L C-Reactive Protein (<1.0) mg/dL NT-Pro-B Natriuret Pep (19.9-100) pg/mL Total Protein (6.3-8.2) g/dL Albumin (3.5-5.1) g/dL Procalcitonin ng/mL Urine Color (Yellow) Urine Appearance (Clear) Urine pH (5.0-9.0) Ur Specific [place] (1.001-1.035) Urine Protein (Negative) mg/dL Urine Glucose (UA) (Negative) mg/dL Urine Ketones (Negative) mg/dL Ur Blood (Man) (Negative) Urine Nitrate (Negative) Urine Bilirubin (Negative) Urine Urobilinogen (<2.0) mg/dL Add Ur Microanalysis Leukocyte Esterase Rfl (Negative) CHARLEEN/UL Urine RBC (0-2) /hpf Urine WBC (0-3) /hpf Urine WBC Clumps (None) /HPF Ur Squamous Epith Cells (Few) /hpf Urine Bacteria /hpf Urine Casts Granular Casts (None) /lpf Urine Mucus /lpf 08/23/24 08/23/24 08/23/24 Range/Units 21:51 21:51 22:15 WBC (4.5-10.0) K/mm3 RBC (4.2-5.4) M/mm3 Hgb (12.0-15.0) g/dL Hct (37.0-47.0) % MCV (80-100) fl MCH (26-34) pg MCHC (32-36) g/dl RDW (11.5-14.5) % Plt Count (150-375) k/mm3 MPV (7.4-10.4) fl Immature Gran % (Auto) (0-0.5) % Neut % (Auto) (45.5-73.1) % Lymph % (Auto) (18.3-44.2) % Mccormick % (Auto) (2.6-8.5) % Eos % (Auto) (0-4.4) % Baso % (Auto) (0.2-1.2) % Lymph # (Auto) (0.9-3.2) K/mm3 Mccormick # (Auto) (0.1-0.6) K/mm3 Eos # (Auto) (0-0.3) K/mm3 Baso # (Auto) (0.0-0.1) K/mm3 Abs Immat Gran (auto) (0.00-0.031) K/mm3 Absolute Neuts (auto) (1.3-6.7) K/mm3 Absolute Nucleated RBC (0.0-0.012) K/mm3 Nucleated RBC % (0.0-0.2) % ESR (0-20) mm/hr PT (11.1-14.7) Seconds INR APTT (22.3-36.8) Seconds D-Dimer (<0.48) ug/mL Sodium (137-145) mmol/L Potassium (3.4-5.0) mmol/L Chloride (98-107) mmol/L Carbon Dioxide (22-30) mmol/L Anion Gap (4-12) mmol/L BUN (7-17) mg/dL Creatinine (0.7-1.0) mg/dL Estim Creat Clear Calc Estimated GFR (59 - ) Glucose (65-110) mg/dL POC Capillary Glucose (65-105) mg/dl Hemoglobin A1c (<5.7) % Lactic Acid 1.6 (0.7-2.0) mmol/L Uric Acid (2.5-7.5) mg/dL Calcium (8.4-10.2) mg/dL Magnesium Cancelled (1.6-2.3) mg/dL Total Bilirubin 1.7 H (0.2-1.3) mg/dL AST 30 (14-36) U/L ALT 26 (6-35) U/L Alkaline Phosphatase 162 H (38-126) U/L Total Creatine Kinase 121 (30-135) U/L C-Reactive Protein 20.4 H Cancelled (<1.0) mg/dL NT-Pro-B Natriuret Pep 127 H (19.9-100) pg/mL Total Protein 9.0 H (6.3-8.2) g/dL Albumin 4.3 (3.5-5.1) g/dL Procalcitonin ng/mL Urine Color Dark yellow (Yellow) Urine Appearance Cloudy H (Clear) Urine pH 5.0 (5.0-9.0) Ur Specific [place] 1.032 (1.001-1.035) Urine Protein 2+ H (Negative) mg/dL Urine Glucose (UA) Negative (Negative) mg/dL Urine Ketones Trace H (Negative) mg/dL Ur Blood (Man) Trace (Negative) Urine Nitrate Positive H (Negative) Urine Bilirubin 3+ H (Negative) Urine Urobilinogen 1.0 (<2.0) mg/dL Add Ur Microanalysis Reviewed Leukocyte Esterase Rfl 1+ H (Negative) CHARLEEN/UL Urine RBC 21-50 H (0-2) /hpf Urine WBC 21-50 H (0-3) /hpf Urine WBC Clumps Present H (None) /HPF Ur Squamous Epith Cells Occasional (Few) /hpf Urine Bacteria None seen /hpf Urine Casts >20 Granular Casts Present (None) /lpf Urine Mucus Present /lpf 08/24/24 08/24/24 Range/Units 06:43 06:55 WBC 8.4 (4.5-10.0) K/mm3 RBC 3.88 L (4.2-5.4) M/mm3 Hgb 11.6 L (12.0-15.0) g/dL Hct 37.6 (37.0-47.0) % MCV 96.9 (80-100) fl MCH 29.9 (26-34) pg MCHC 30.9 L (32-36) g/dl RDW 13.6 (11.5-14.5) % Plt Count 329 (150-375) k/mm3 MPV 10.0 (7.4-10.4) fl Immature Gran % (Auto) 0.2 (0-0.5) % Neut % (Auto) 72.7 (45.5-73.1) % Lymph % (Auto) 14.8 L (18.3-44.2) % Mccormick % (Auto) 9.9 H (2.6-8.5) % Eos % (Auto) 1.8 (0-4.4) % Baso % (Auto) 0.6 (0.2-1.2) % Lymph # (Auto) 1.24 (0.9-3.2) K/mm3 Mccormick # (Auto) 0.8 H (0.1-0.6) K/mm3 Eos # (Auto) 0.2 (0-0.3) K/mm3 Baso # (Auto) 0.1 (0.0-0.1) K/mm3 Abs Immat Gran (auto) 0.02 (0.00-0.031) K/mm3 Absolute Neuts (auto) 6.1 (1.3-6.7) K/mm3 Absolute Nucleated RBC 0.000 (0.0-0.012) K/mm3 Nucleated RBC % 0.0 (0.0-0.2) % ESR (0-20) mm/hr PT (11.1-14.7) Seconds INR APTT (22.3-36.8) Seconds D-Dimer (<0.48) ug/mL Sodium 141 (137-145) mmol/L Potassium 3.5 (3.4-5.0) mmol/L Chloride 107 (98-107) mmol/L Carbon Dioxide 22 (22-30) mmol/L Anion Gap 12 (4-12) mmol/L BUN 21 H (7-17) mg/dL Creatinine 0.76 (0.7-1.0) mg/dL Estim Creat Clear Calc 58 Estimated GFR > 60 (59 - ) Glucose 97 (65-110) mg/dL POC Capillary Glucose (65-105) mg/dl Hemoglobin A1c (<5.7) % Lactic Acid (0.7-2.0) mmol/L Uric Acid 8.1 H (2.5-7.5) mg/dL Calcium 9.2 (8.4-10.2) mg/dL Magnesium 1.7 (1.6-2.3) mg/dL Total Bilirubin 1.2 (0.2-1.3) mg/dL AST 21 (14-36) U/L ALT 21 (6-35) U/L Alkaline Phosphatase 123 (38-126) U/L Total Creatine Kinase (30-135) U/L C-Reactive Protein (<1.0) mg/dL NT-Pro-B Natriuret Pep (19.9-100) pg/mL Total Protein 8.0 (6.3-8.2) g/dL Albumin 3.7 (3.5-5.1) g/dL Procalcitonin 0.1 ng/mL Urine Color (Yellow) Urine Appearance (Clear) Urine pH (5.0-9.0) Ur Specific [place] (1.001-1.035) Urine Protein (Negative) mg/dL Urine Glucose (UA) (Negative) mg/dL Urine Ketones (Negative) mg/dL Ur Blood (Man) (Negative) Urine Nitrate (Negative) Urine Bilirubin (Negative) Urine Urobilinogen (<2.0) mg/dL Add Ur Microanalysis Leukocyte Esterase Rfl (Negative) CHARLEEN/UL Urine RBC (0-2) /hpf Urine WBC (0-3) /hpf Urine WBC Clumps (None) /HPF Ur Squamous Epith Cells (Few) /hpf Urine Bacteria /hpf Urine Casts Granular Casts (None) /lpf Urine Mucus /lpf Imaging Data Radiologist's impression: CT Right Ankle Stat Rad: Moderate fluid collection arising distal tibial fibular syndesmosis. Septic joint effusion cannot be excluded. Consider fluid analysis of this collection (series 3, image 31). Subcutaneous edema and skin thickening along the medial lateral aspect of the ankle, likely cellulitis/infection. Talocalcaneal arthrodesis with multiple screws. No screw fracture or CT evidence of hardware complication. Severe osteoarthritis of the tibiotalar joint, consisting of joint space narrowing, subchondral cystic changes/sclerosis, and osteophytic spurring. Associated, chronic collapse of the talar dome. No acute appearing fracture Discharge Plan Discharge Clinical Impression: Pain in right lower leg, Adult failure to thrive, Bad odor of urine, Thrombocytosis, High alkaline phosphatase, ANTONETTE (acute kidney injury), CRP elevated, UTI (urinary tract infection) Patient Disposition: Still a Patient Condition: Stable Time of Disposition: 05:36
--- OUTSIDE RECORDS SUMMARY | 2024-08-23 22:02 | XMS_ITS | Continuity of Care Document ---
Author Organization [facility] Address [address] [place] [address] [address] [place] [address] Phone Care Team Providers Care Drainlayer Name Role Phone Vasquez OD, Sami Unavailable Unavailable Advance Directives Directive Yes / No Effective Date File Name No Information Encounters Encounter Description Practice Location Reason(s) For Visit Diagnoses Date Provider Providers Copied on Encounter [facility], [id number] [place] [address] [address], [place], [place], [id number], [place] tel:[phone] [facility] No Information Nov-0 7-200 6 Vasquez OD Sami. [address] , [address], [place], [address], [place]. tel:[phone] Family History Family Member Type Diagnosis Age At Onset No Information Payers Payer name Insurance type Covered constitution party ID Authoriza tion(s) No Information Social [...]
[2024-08-23] MEDS: SODIUM CHLORIDE 0.9% IV 1,000 ML 999 ML IV CONT (22:04)
[2024-08-23] MEDS: HYDROcodone/acetaminophen (*CRX) 5-325 MG TABLET 1 TAB PO (22:04)
--- NOTE | 2024-08-23 22:05 | PC.NURSE ---
Pt was brought from ER waiting room to room 6 in ED. This RN as well as Torey RN removed pts clothes to place her in a hospital gown. Pt had a depend on that appears to be days old.. the depend appeared to be so heavily saturated that it was breaking into pieces. Pt was asked when the least time she bathed herself was and pt was unable to recall the last time she was cleaned. Pts clothes were saturated with urine and dirt. Pts mouth was extremely dry and appeared to have dirt in it as well. Pt had cardiac stickers still stuck to her skin from the last time she was seen in this hospital which was over 2 weeks ago. Pt could not safely stand on her own and this RN asked pt how she used the bathroom at home if she could not ambulate, pt stated i just change my diapers . Pt also stated she has run out of food at home. Pt is alert and oriented x4. Pt lives at home alone and states she believes her self care started to decline after a fall she had 2 weeks ago.
[2024-08-23 22:06] LABS: Basophils Absolute Auto 0.1 K/mm3 (0.0-0.1); Basophils Percent Auto 0.5 % (0.2-1.2); Eosinophils Absolute Auto 0.1 K/mm3 (0-0.3); Eosinophils Percent Auto 0.5 % (0-4.4); Hematocrit 43.3 % (37.0-47.0); Hemoglobin 13.6 g/dL (12.0-15.0); Immature Granulocyte Absolute 0.03 K/mm3 (0.00-0.031); Immature Granulocyte Percent A 0.3 % (0-0.5); Lymphocytes Percent Auto 11.7 % (18.3-44.2); Mean Corpuscular HGB Conc 31.4 g/dl (32-36); Mean Corpuscular Volume 95.4 fl (80-100); Mean Platelet Volume 9.8 fl (7.4-10.4); Monocytes Absolute Auto 1.1 K/mm3 (0.1-0.6); Monocytes Percent Auto 10.4 % (2.6-8.5); Neutrophils Absolute Auto 7.8 K/mm3 (1.3-6.7); Neutrophils Percent Auto 76.6 % (45.5-73.1); Platelet Count Result 380 k/mm3 (150-375); Red Blood Count 4.54 M/mm3 (4.2-5.4); Red Cell Distribution Width 13.4 % (11.5-14.5); White Blood Count 10.2 K/mm3 (4.5-10.0)
[2024-08-23 22:17] LABS: INR 1.2; Prothrombin Time 15.7 Seconds (11.1-14.7)
[2024-08-23 22:18] LABS: Alanine Aminotransferase 26 U/L (6-35); Albumin Level 4.3 g/dL (3.5-5.1); Alkaline Phosphatase 162 U/L (38-126); Aspartate Amino Transferase 30 U/L (14-36); Carbon Dioxide 23 mmol/L (22-30); Chloride 102 mmol/L (98-107); Glucose 122 mg/dL (65-110); Magnesium 1.6 mg/dL (1.6-2.3); Partial Thromboplastin Time 29.4 Seconds (22.3-36.8); Potassium 4.3 mmol/L (3.4-5.0)
[2024-08-23 22:19] LABS: Anion Gap 16 mmol/L (4-12); Bilirubin,Total 1.7 mg/dL (0.2-1.3); Sodium 141 mmol/L (137-145)
[2024-08-23 22:21] LABS: Add Urine Microscopic? YES; Appearance Urine Cloudy (Clear); Bacteria Urine None Seen /hpf; Bilirubin Urine 3+ (Negative); Blood Urine Trace (Negative); Color Urine Dark Yellow (Yellow); Glucose Urine UA Negative (Negative); Granular Casts Urine Present /lpf; Ketones Urine Trace mg/dL (Negative); Leukocyte Esterase Ur 1+ LEU/UL (Negative); Mucus Urine Present /lpf; Need Manual Microscopic Reviewed; Nitrate Urine Positive (Negative); Non Pathogenic Casts >20; Protein Urine 2+ mg/dL (Negative); RBC Urine 21-50 /hpf (0-2); Specific Grav Ur 1.032 (1.001-1.035); Squamous Epithelial Cell Urine Occasional /hpf (Few); WBC Clumps Urine Present /HPF; WBC Urine 21-50 /hpf (0-3)
[2024-08-23 22:22] LABS: Blood Urea Nitrogen 27 mg/dL (7-17); Estimated Glomerular Filt Rate 49
[2024-08-23 22:39] LABS: CRP 20.4 mg/dL (<1.0)
[2024-08-23 22:44] LABS: D Dimer 3.49 ug/mL (<0.48)
[2024-08-23 22:51] LABS: Erythrocyte Sedimentation Rate 22 mm/hr (0-20)
[2024-08-23 22:54] LABS: Lactic Acid Reflex 1.6 mmol/L (0.7-2.0)
[2024-08-23 23:08] LABS: Creatine Kinase 121 U/L (30-135)
[2024-08-23] MEDS: SODIUM CHLORIDE 0.9% IV 500 ML 999 ML IV CONT (23:08)
[2024-08-23 23:19] LABS: NT Pro B Type Natriuretic Pept 127 pg/mL (19.9-100)
[2024-08-24 03:41] VITALS: BP 129/82; PULSE 89; RESP 17; O2SAT 97
--- NOTE | 2024-08-24 04:29 | P.HP_ITS ---
H&P: HPI History of Present Illness Date/Time: 08/24/24 04:29 Chief Complaint: Unable to care for self, right leg swelling/infection Narrative: This is a 64 year old female patient who is admitted to the hospital due to inability to care for self at home with ongoing cellulitis right leg, possible infected right ankle joint complicated by overlying cellulitis and hardware in place as well as findings consistent with dehydration, ANTONETTE and UTI. Patient was seen in our ER on 08/20/24 due to right leg/foot pain. At that time she was found to have fracture at base of 5th metatarsal, lymphedema and likely cellu litis. Prescription for antibiotic written but it was not filled at pharmacy (possibly due to need for prior auth vs concern due to listed allergies??) Patient reports not being able to take care of self due to pain and mobility concerns. Patient reports not even drinking/eating and she had on a very disintegrating brief when arriving in ER. Patient reports she ran out of bread at home and all she had to eat the past few days were some sugar free vanilla wafer cookies from [employer]. Labs show mild WBC elevation of 10.2 with Platelets mild elevated at 380. D- Dimer 3.49 and chemistry panel shows mild ANTONETTE with eGFR 49. Anion gap also slightly elevated at 16, potentially due to ketosis from dehydration and not eating/drinking well. Lactic acid normal. CRP also significantly elevated at 20.4 while ESR minimally elevated at 22. Urinalysis with positive nitrates, 1+ leukocyte esterase, 21-50 RBC, 21-50 WBC with WBC clumps and greater than [address] scan of right ankle concerning for potential infected joint. Arthrocentesis not performed in ER due to overlying cellulitis as well as previously implanted surgical hardware. Patient was started on Rocephin first for UTI then v ancomycin added due to possible joint infection and overlying cellulitis. Orthopedics will be consulted in the morning, will keep NPO for now. Ultrasound of right leg also ordered by ER due to swelling and elevated D-Dimer. No shortness of breath or respiratory symptoms to suggest need for CTA PE. Review of Systems Review of Systems: All systems reviewed & are unremarkable except as noted in HPI and below [facility] Past Medical History Medical History (Updated 08/24/24 @ 06:35 by Ramiro Varela APRN) CVA (cerebral vascular accident) April 2009 Thyroid disorder Knee pain, left Rhabdomyolysis Basal cell carcinoma 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 Mild asthma Migraine headache Closed fracture distal radius and ulna Lymphedema associated with obesity Other sequelae of other nontraumatic intracranial hemorrhage Mixed hyperlipidemia Overactive bladder Prediabetes Essential hypertension Unspecified intracranial hemorrhage Vascular dementia with behavioral disturbance Surgical History Surgical History History of basal cell carcinoma excision History of total abdominal hysterectomy and bilateral salpingo-oophorectomy (04/2000) History of tonsillectomy Family History Family History Father Diabetes mellitus Family history of cardiovascular disease Mother Family history of elevated blood lipids Diabetes mellitus Family history of malignant neoplasm of skin Hypertension Family history of cardiovascular disease Fall shelter resident Sibling Diabetes mellitus Hypertension shelter resident Grandparent Family history of malignant neoplasm of breast Social History Social History Social History: Surrogate decision maker: Ambar Oh, mother. Code status: Full code. Smoking status: Never smoker Alcohol intake: never Substance use: unknown Substance use type: does not use Do You Feel Safe in your Home?: Yes Lack of Transportation: No Lack of Food: Never True Current Housing: I Have Housing Concerned About Future Housing: No Difficulty Paying Gas/Electric Bills: No Difficulty Paying for Meds: No Currently Unemployed: No Education: High School Diploma/GED Difficulty w/ Childcare or Family Care: No Additional living arrangements comments: The patient lives in [place], and her mother's home. 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 Spiritual care concerns: No Meds Home Medications and Allergies Home Medications ?Medication ?Instructions ?Recorded ?Confirmed ?Type cholecalciferol (vitamin D3) 25 25 mcg PO DAILY 03/19/23 08/24/24 History mcg (1,000 unit) capsule levothyroxine 150 mcg tablet 150 mcg PO DAILY #90 tabs 09/30/23 08/24/24 Rx amlodipine 5 mg tablet 5 mg PO DAILY #90 tabs 03/01/24 08/24/24 Rx metformin 500 mg tablet,extended 500 mg PO HS #90 tabs 03/01/24 08/24/24 Rx release 24 hr simvastatin 10 mg tablet 10 mg PO DAILY #90 tabs 03/01/24 08/24/24 Rx spironolactone 50 mg tablet 50 mg PO DAILY #90 tabs 03/01/24 08/24/24 Rx benazepril 40 mg tablet 40 mg PO DAILY #90 tabs 07/21/24 08/24/24 Rx cephalexin 500 mg capsule 500 mg PO Q6H #28 caps 08/20/24 08/24/24 Rx Allergies Allergy/AdvReac Type Severity Reaction Status Date / Time hydrochlorothiazide Allergy Unknown Skin Verified 08/23/24 20:09 Reaction Penicillins Allergy Unknown allergic Verified 08/23/24 20:09 since childhood Sulfa (Sulfonamide Allergy Unknown Rash Verified 08/23/24 20:09 Antibiotics) clindamycin AdvReac Unknown Nausea Verified 08/23/24 20:09 Vital Signs Vital Signs - 24 hr 08/23/24 20:28 08/24/24 03:41 Temperature 37.1 C Pulse Rate 114 H 89 Respiratory Rate 14 17 Blood Pressure 124/100 H 129/82 Pulse Oximetry 100 97 Exam Narrative: GENERAL: In no acute distress. HEAD: Well healed ecchymosis under right eye/cheek area EYES: Non injected, non icteric ENT: Nares clear, no rhinorrhea or epistaxis. Dry mucous membranes/lips/tongue NECK: Supple. CHEST: Speaking slowly in full sentences. No respiratory distress. HEART: Regular rate and rhythm, no significant murmur noted ABDOMEN: Soft, nondistended, nontender to palpation, bowel sounds present EXTREMITIES: RLE edema with erythema, ankle joint effusion/swelling and bruising to dorsum of right foot. No tenderness to area of possible 5th metatarsal fracture--only tender around the ankle. SKIN: Warm, dry. NEURO: No focal deficits. Very slow speech. Alert and oriented to baseline x2- 3. PSYCH: Easily overwhelmed with information, delayed processing, labile affect H&P: Results Labs Labs: Short CBC 08/23/24 Range/Units 21:51 WBC 10.2 H (4.5-10.0) K/mm3 Hgb 13.6 (12.0-15.0) g/dL Hct 43.3 (37.0-47.0) % Plt Count 380 H D (150-375) k/mm3 BMP 08/23/24 21:51 Sodium 141 Potassium 4.3 Chloride 102 Carbon Dioxide 23 BUN 27 H D Creatinine 1.11 H Glucose 122 H Calcium 10.0 Cardiac Enzymes 08/23/24 Range/Units 21:51 Total Creatine Kinase 121 (30-135) U/L Liver Function 08/23/24 Range/Units 21:51 Total Bilirubin 1.7 H (0.2-1.3) mg/dL AST 30 (14-36) U/L ALT 26 (6-35) U/L Alkaline Phosphatase 162 H (38-126) U/L Albumin 4.3 (3.5-5.1) g/dL Urine 08/23/24 Range/Units 21:51 Urine Color Dark yellow (Yellow) Urine Appearance Cloudy H (Clear) Urine pH 5.0 (5.0-9.0) Ur Specific [place] 1.032 (1.001-1.035) Urine Protein 2+ H (Negative) mg/dL Urine Glucose (UA) Negative (Negative) mg/dL Pulse Oximetry SpO2 results: 97-100% on room air Attestation: I personally reviewed and interpreted this pulse oximetry as follows: Interpretation: No need for supplemental oxygenation at this time Imaging Foot X-Ray on 08/20/24: Radiologist's impression: Comparison: None. FINDINGS: BONES: Lucency at the base of the fifth metatarsal bone is seen which may indicate a fracture. Clinical correlation for tenderness in the area and follow- up advised. Osteopenia of the bones. Postoperative changes in the tarsal bones. JOINT SPACES: Narrowing of the proximal and distal interphalangeal joints. No tarsal coalition. SOFT TISSUES: Normal. IMPRESSION: Possible fracture at the base of the fifth metatarsal bone with displacement. Clinical correlation and follow-up advised. Polyarticular osteoarthritic changes. Reviewed, dictated and finalized at location A. Right ankle CT: Radiologist's impression: CT scan of the right ankle CLINICAL HISTORY: Swelling TECHNIQUE: Following intravenous administration of 100 cc of Omnipaque 350 contrast internal, axial imaging of the right ankle was performed. Sagittal and coronal reformatted images were constructed. Dose reduction technique was used on this scan by utilizing automated exposure control and iterative reconstruction technique. The dose-length product (DLP) was 395.31 mGy-cm. Findings: Prior orthopedic fusion across the subtalar joints, talonavicular joint, and calcaneocuboid joint. No acute fracture identified. There is severe degenerative change of the tibiotalar joint with mild asymmetric widening of the lateral aspect of ankle mortise. Probable large osteochondral lesion of the lateral corner of the talar dome. There is moderate tibiotalar joint effusion. There is mild diffuse subcutaneous soft tissue edema about the ankle. IMPRESSION: 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 Moderate effusion arising from the tibiotalar joint. Septic arthritis is not excluded. Correlate clinically. Prior orthopedic fusion of the subtalar joint, talonavicular joint, and calcaneocuboid joint. Mild diffuse subcutaneous soft tissue edema. Correlate for cellulitis. Reviewed, dictated and finalized at location . Assessment and Plan Assessment and plan (1) ANTONETTE (acute kidney injury): Code(s): N17.9 - Acute kidney failure, unspecified Status: Acute Assessment and Plan: -Lab findings consistent with dehydration and acute kidney injury -Received IV fluids in ER and on IV fluids at rate pending Orthopedics evaluation (2) UTI (urinary tract infection): Code(s): N39.0 - Urinary tract infection, site not specified Status: Acute Assessment and Plan: -UA consistent with UTI -Previously prescribed antibiotics for right leg cellulitis not able to be picked up at pharmacy -No prior positive urine cultures -Rocephin and vancomycin given in ER and will continue these on admit -Blood cultures pending (3) Cellulitis of right lower leg: Code(s): L03.115 - Cellulitis of right lower limb Status: Acute Assessment and Plan: -Previously prescribed antibiotics for right leg cellulitis not able to be picked up at pharmacy -No prior positive blood or wound cultures -Rocephin and vancomycin given in ER and will continue these on admit -Blood cultures pending -Right leg swollen, lymphedema likely but with positive D-Dimer Ultrasound to r/o DVT ordered -Hold anticoagulation until orthopedics evaluation for possible procedure to right ankle (4) Right ankle swelling: Code(s): M25.471 - Effusion, right ankle Status: Acute Assessment and Plan: -Previously seen in ER on 08/20/24 for pain/swelling, thought to be related to recent fall -CT obtained in ER today shows hardware in place with concern for infected ankle joint -Orthopedics to be consulted in the morning, patient NPO except sips with meds -PT/OT and Case Management consults needed (5) Multiple falls: Code(s): R29.6 - Repeated falls Status: Acute Assessment and Plan: -Recent fall with right ankle/foot injury with inability to care for self at home -PT/OT need consulted after Orthopedics evaluation/treatment -SNF will likely be needed on discharge -Case Management consulted by ER -Right foot 5th metatarsal possible fracture/dislocation on X-ray obtained 08/20/24 (6) Adult failure to thrive: Code(s): R62.7 - Adult failure to thrive Status: Acute Assessment and Plan: See above, unable to care for self at home d/t unable to ambulate related to right foot/ankle/leg concerns (7) Essential hypertension: Code(s): I10 - Essential (primary) hypertension Status: Acute Assessment and Plan: -History of hypertension -Hold benazepril due to ANTONETTE, resume once renal function improved if BP elevates (8) Mixed hyperlipidemia: Code(s): E78.2 - Mixed hyperlipidemia Status: Acute Assessment and Plan: -Continue home medications (9) Prediabetes: Code(s): R73.03 - Prediabetes Status: Acute Assessment and Plan: -Patient prescribed metformin, will hold due to ANTONETTE and CT contrast on admit date -A1c ordered -ACHS fingerstick glucose with low dose SSI ordered -Patient NPO until Orthopedics evaluation and care planning complete Quality If No VTE Prophylaxis Answer both mechanical and pharmacologic: Reason no mechanical VTE proph: medical contraindication (swollen right leg with positive D-Dimer) Reason no pharmacologic proph: medical contraindication (Ortho consult pending, possible procedure) Hospitalist MIPS Advance Care Plan I have confirmed that the patient's Advanced Care Plan is present, code status is documented, or surrogate decision maker is listed in patient medical record.: Yes Medication Reconciliation I have utilized all available resources to obtain, update and review the patients current medications (includes all prescriptions, OTC, herbals, cannabis, and nutritional supplements).: Yes
[2024-08-24 05:02] VITALS: BP 127/86; PULSE 92; RESP 16; O2SAT 98
[2024-08-24 05:20] VITALS: BMI 30.3
--- NOTE | 2024-08-24 05:21 | ADMGEN ---
This patient, Lily Oh, was admitted to [facility] Surg Room 307-02. Patient/family oriented to hospital policies and general routines including ID bracelet, bed and alarms, visiting hours, pain management, procedures, bathroom and other care routines, personal items, smoking policy, room service/diet, and visiting hours. Information on how to activate the Rapid Response Team has been discussed. Patient/Family are encouraged to report perceived risks to care and to ask questions if they do not understand what they are told or what they should do.
[2024-08-24 06:00] VITALS: BP 128/81; PULSE 88; RESP 18; O2SAT 100
[2024-08-24] MEDS: LACTATED RINGERS 1,000 ML 75 ML IV CONT (06:15)
[2024-08-24] MEDS: VANCOMYCIN 1,750 MG/NS 500 ML 1,750 MG/500 ML BAG 250 MG IVPB (06:20)
[2024-08-24] MEDS: LEVOTHYROXINE SODIUM 150 MCG TABLET PO (06:39)
[2024-08-24 06:52] LABS: Hemoglobin A1C 5.5 % (<5.7)
[2024-08-24 07:17] LABS: Basophils Absolute Auto 0.1 K/mm3 (0.0-0.1); Basophils Percent Auto 0.6 % (0.2-1.2); Eosinophils Absolute Auto 0.2 K/mm3 (0-0.3); Eosinophils Percent Auto 1.8 % (0-4.4); Hematocrit 37.6 % (37.0-47.0); Hemoglobin 11.6 g/dL (12.0-15.0); Immature Granulocyte Absolute 0.02 K/mm3 (0.00-0.031); Immature Granulocyte Percent A 0.2 % (0-0.5); Lymphocytes Absolute Auto 1.24 K/mm3 (0.9-3.2); Lymphocytes Percent Auto 14.8 % (18.3-44.2); Mean Corpuscular HGB Conc 30.9 g/dl (32-36); Mean Corpuscular Hemoglobin 29.9 pg (26-34); Mean Corpuscular Volume 96.9 fl (80-100); Monocytes Absolute Auto 0.8 K/mm3 (0.1-0.6); Monocytes Percent Auto 9.9 % (2.6-8.5); Neutrophils Absolute Auto 6.1 K/mm3 (1.3-6.7); Neutrophils Percent Auto 72.7 % (45.5-73.1); Platelet Count Result 329 k/mm3 (150-375); Red Blood Count 3.88 M/mm3 (4.2-5.4); Red Cell Distribution Width 13.6 % (11.5-14.5); White Blood Count 8.4 K/mm3 (4.5-10.0)
[2024-08-24 07:28] LABS: Alanine Aminotransferase 21 U/L (6-35); Albumin Level 3.7 g/dL (3.5-5.1); Alkaline Phosphatase 123 U/L (38-126); Anion Gap 12 mmol/L (4-12); Aspartate Amino Transferase 21 U/L (14-36); Bilirubin,Total 1.2 mg/dL (0.2-1.3); Blood Urea Nitrogen 21 mg/dL (7-17); Calcium 9.2 mg/dL (8.4-10.2); Carbon Dioxide 22 mmol/L (22-30); Chloride 107 mmol/L (98-107); Estimated CRCL calculation 58 ml/min; Estimated Glomerular Filt Rate > 60; Glucose 97 mg/dL (65-110); Magnesium 1.7 mg/dL (1.6-2.3); Potassium 3.5 mmol/L (3.4-5.0); Sodium 141 mmol/L (137-145)
[2024-08-24 07:39] LABS: Glucose Point of Care 87 mg/dl (65-105)
[2024-08-24 08:14] LABS: Procalcitonin 0.1 ng/mL
--- NOTE | 2024-08-24 08:40 | P.PNCROSS_ITS ---
Event Note Event Note Event Note: Patient is a 64-year-old female who was seen by previous provider same day I f ollowed up for further evaluation currently being evaluated and treated for possible cellulitis vs septic arthritis the right ankle. patient initially presented leukocytosis elevated ESR and CRP with inability to ambulate on ankle. There is noted erythema and swelling to right ankle. CT of ankle showing severe degenerative changes of the tibiotalar joint and large probable osteochondroma lesion of the lateral corner of the talar dome as well as moderate effusion at joint. she was also found to a urinary tract infection was positive nitrates and leukocytes, wbc's 21-50 she was started on Rocephin IV pending cultures and vancomycin was added for coverage of possible septic arthritis. vitals reviewed and stable remained afebrile other labs at this time unremarkable except for an elevated D-dimer of 3.49 at which time I ordered a CTA which is pending less likely PE but will still rule out due to patient's sedentary and immobility, venous Doppler has been ordered and is pend ing. orthopedics has been consulted appreciate any recommendations. Did order a uric acid which is pending and blood cx pending. Patient did report she has a history of CVA that caused brain damage back in 2008 and that she has been caring for herself for the 4 years since her mother went into a senior care. Patient had been prescribed ABX PO outpatient and reports she tried to get it filled on Friday but the pharmacy was unable to fill because they could not contact her physician for clarification orders. Patient sister who is in a senior care had not heard from her for 2 days and became concerned and called the [place] police to do a wellness check because she had fallen the week before. Upon arrival EMS noticed patient ankle was severely swollen with erythema. Ortho is planning on aspiration but patient did have ABX prior which may interfere with culture. Patient is simple but alert and oriented x 4 and knew her medications and exactly how to take them.
[2024-08-24] MEDS: CHOLECALCIFEROL 1,000 UNITS TABLET 1000 UNITS PO (08:51)
[2024-08-24] MEDS: SPIRONOLACTONE 50 MG TABLET PO (08:51)
[2024-08-24] MEDS: SIMVASTATIN 10 MG TABLET PO (08:51)
[2024-08-24] MEDS: amLODIPine BESYLATE 5 MG TABLET PO (08:51)
[2024-08-24] MEDS: cefTRIAXone 2 GM/NS 100 ML 2 GM/100 ML BAG IVPB (08:51)
[2024-08-24 09:04] LABS: Uric Acid 8.1 mg/dL (2.5-7.5)
[2024-08-24 10:23] VITALS: O2SAT 96
[2024-08-24 12:07] LABS: Glucose Point of Care 82 mg/dl (65-105)
--- NOTE | 2024-08-24 12:40 | P.CONOP_ITS ---
Assessment and Plan Assessment and plan (1) Cellulitis of right ankle: Code(s): L03.115 - Cellulitis of right lower limb Status: Acute Assessment and Plan: Patient has cellulitis right ankle. He has she has had previous surgery on this ankle and her knee has a severely degenerative joint. CT scan shows degenerative changes with some fluid. All those difficult to say whether this is infectious or not. Unfortunately she did not get cultures before she was placed on high-dose antibiotics. This will make it much more difficult to determine with the joint is infected. We will aspirate the joint see with the cultures in the white cells show. Will follow along until then. She is presently on Vancomycin and Rocephin which should be adequate. I talked to Dr. Perez, Infectious Disease pharmacist, and he is following along. Will wait till the cultures done reassess at that time. Of note is the fact the patient was given a prescription for antibiotics 4 to 5 days previously and for some reason did not get them filled. Very concerned about her compliance and understanding. History of Present Illness HPI Consult date: 08/24/24 Chief complaint: RLE pain/swelling; Cellulitis, Poss septic joint; Narrative: Patient has cellulitis right ankle with underlying lymphedema and previous ankle surgery. She she artery has [id number] arthritis of her right ankle. 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 Mild asthma Migraine headache Closed fracture distal radius and ulna Lymphedema associated with obesity Other sequelae of other nontraumatic intracranial hemorrhage Mixed hyperlipidemia Overactive bladder Prediabetes Essential hypertension Unspecified intracranial hemorrhage Vascular dementia with behavioral disturbance Surgical History Surgical History History of basal cell carcinoma excision History of total abdominal hysterectomy and bilateral salpingo-oophorectomy (04/2000) History of tonsillectomy Family History Family History Father Diabetes mellitus Family history of cardiovascular disease Mother Family history of elevated blood lipids Diabetes mellitus Family history of malignant neoplasm of skin Hypertension Family history of cardiovascular disease Fall senior care resident Sibling Diabetes mellitus Hypertension senior care resident Grandparent Family history of malignant neoplasm of breast Social History Social History Social History: Surrogate decision maker: Ambar Oh, mother. Code status: Full code. Smoking status: Never smoker Alcohol intake: never Substance use: unknown Substance use type: does not use Do You Feel Safe in your Home?: Yes Lack of Transportation: No Lack of Food: Never True Current Housing: I Have Housing Concerned About Future Housing: No Difficulty Paying Gas/Electric Bills: No Difficulty Paying for Meds: No Currently Unemployed: No Education: High School Diploma/GED Difficulty w/ Childcare or Family Care: No Additional living arrangements comments: The patient lives in [place], and her mother's home. 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 Spiritual care concerns: No Meds Home Medications and Allergies Home Medications ?Medication ?Instructions ?Recorded ?Confirmed ?Type cholecalciferol (vitamin D3) 25 25 mcg PO DAILY 03/19/23 08/24/24 History mcg (1,000 unit) capsule levothyroxine 150 mcg tablet 150 mcg PO DAILY #90 tabs 09/30/23 08/24/24 Rx amlodipine 5 mg tablet 5 mg PO DAILY #90 tabs 03/01/24 08/24/24 Rx metformin 500 mg tablet,extended 500 mg PO HS #90 tabs 03/01/24 08/24/24 Rx release 24 hr simvastatin 10 mg tablet 10 mg PO DAILY #90 tabs 03/01/24 08/24/24 Rx spironolactone 50 mg tablet 50 mg PO DAILY #90 tabs 03/01/24 08/24/24 Rx benazepril 40 mg tablet 40 mg PO DAILY #90 tabs 07/21/24 08/24/24 Rx cephalexin 500 mg capsule 500 mg PO Q6H #28 caps 08/20/24 08/24/24 Rx Allergies Allergy/AdvReac Type Severity Reaction Status Date / Time hydrochlorothiazide Allergy Unknown Skin Verified 08/23/24 20:09 Reaction Penicillins Allergy Unknown allergic Verified 08/23/24 20:09 since childhood Sulfa (Sulfonamide Allergy Unknown Rash Verified 08/23/24 20:09 Antibiotics) clindamycin AdvReac Unknown Nausea Verified 08/23/24 20:09 Vital Signs Vital Signs - 24 hr 08/23/24 20:28 08/24/24 03:41 08/24/24 05:02 Temperature 98.8 F Pulse Rate 114 H 89 92 Respiratory Rate 14 17 16 Blood Pressure 124/100 H 129/82 127/86 Pulse Oximetry 100 97 98 Oxygen Delivery 08/24/24 05:20 08/24/24 06:00 08/24/24 08:00 Temperature Pulse Rate 88 Respiratory Rate 18 Blood Pressure 128/81 Pulse Oximetry 100 Oxygen Delivery Room Air Room Air 08/24/24 10:23 Temperature Pulse Rate Respiratory Rate Blood Pressure Pulse Oximetry 96 Oxygen Delivery Room Air Exam 2 Narrative: Patient has a cellulitic leg. She has had previous surgery the incisions well healed healed she can move her ankle well although she does have some pain. Neurologically she is grossly intact Radiology Reports: Comments: CT Scan Report Signed Patient: Lily Oh CT scan of the right ankle CLINICAL HISTORY: Swelling TECHNIQUE: Following intravenous administration of 100 cc of Omnipaque 350 contrast internal, axial imaging of the right ankle was performed. Sagittal and coronal reformatted images were constructed. Dose reduction technique was used on this scan by utilizing automated exposure control and iterative reconstruction technique. The dose-length product (DLP) was 395.31 mGy-cm. Findings: Prior orthopedic fusion across the subtalar joints, talonavicular joint, and calcaneocuboid joint. No acute fracture identified. There is severe degenerative change of the tibiotalar joint with mild asymmetric widening of the lateral aspect of ankle mortise. Probable large osteochondral lesion of the lateral corner of the talar dome. There is moderate tibiotalar joint effusion. There is mild diffuse subcutaneous soft tissue edema about the ankle. IMPRESSION: 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 Moderate effusion arising from the tibiotalar joint. Septic arthritis is not excluded. Correlate clinically. Prior orthopedic fusion of the subtalar joint, talonavicular joint, and calcaneocuboid joint. Mild diffuse subcutaneous soft tissue edema. Correlate for cellulitis. Reviewed, dictated and finalized at location . Please be advised this is a medical document. It is intended for [id number] communication. It is written in medical language and may contain unfamiliar abbreviations or verbiage. Medical documents are intended to carry relevant information, facts as evident, and the clinical opinion of the practitioner at the time of the encounter. This report may have been done utilizing a voice recognition system. Attempts have been made to correct errors. H 2 Ankle X-Ray 08/20/24 Foot X-Ray 08/20/24 Wrist X-Ray 04/28/21 Results Labs 08/24/24 06:55 08/24/24 06:55 Labs: Abnormal lab results 08/23/24 08/23/24 08/23/24 Range/Units 20:29 21:50 21:51 WBC 10.2 H (4.5-10.0) K/mm3 RBC (4.2-5.4) M/mm3 Hgb (12.0-15.0) g/dL MCHC 31.4 L (32-36) g/dl Plt Count 380 H D (150-375) k/mm3 Neut % (Auto) 76.6 H (45.5-73.1) % Lymph % (Auto) 11.7 L (18.3-44.2) % King % (Auto) 10.4 H (2.6-8.5) % King # (Auto) 1.1 H (0.1-0.6) K/mm3 Absolute Neuts (auto) 7.8 H (1.3-6.7) K/mm3 ESR 22 H (0-20) mm/hr PT 15.7 H (11.1-14.7) Seconds D-Dimer 3.49 H (<0.48) ug/mL Anion Gap 16 H (4-12) mmol/L BUN 27 H D (7-17) mg/dL Creatinine 1.11 H (0.7-1.0) mg/dL Estimated GFR 49 L (59 - ) Glucose 122 H (65-110) mg/dL POC Capillary Glucose 126 H (65-105) mg/dl Uric Acid (2.5-7.5) mg/dL Total Bilirubin 1.7 H (0.2-1.3) mg/dL Alkaline Phosphatase 162 H (38-126) U/L C-Reactive Protein 20.4 H (<1.0) mg/dL NT-Pro-B Natriuret Pep 127 H (19.9-100) pg/mL Total Protein 9.0 H (6.3-8.2) g/dL Urine Appearance Cloudy H (Clear) Urine Protein 2+ H (Negative) mg/dL Urine Ketones Trace H (Negative) mg/dL Urine Nitrate Positive H (Negative) Urine Bilirubin 3+ H (Negative) Leukocyte Esterase Rfl 1+ H (Negative) CHARLEEN/UL Urine RBC 21-50 H (0-2) /hpf Urine WBC 21-50 H (0-3) /hpf Urine WBC Clumps Present H (None) /HPF 08/24/24 08/24/24 Range/Units 06:43 06:55 WBC (4.5-10.0) K/mm3 RBC 3.88 L (4.2-5.4) M/mm3 Hgb 11.6 L (12.0-15.0) g/dL MCHC 30.9 L (32-36) g/dl Plt Count (150-375) k/mm3 Neut % (Auto) (45.5-73.1) % Lymph % (Auto) 14.8 L (18.3-44.2) % King % (Auto) 9.9 H (2.6-8.5) % King # (Auto) 0.8 H (0.1-0.6) K/mm3 Absolute Neuts (auto) (1.3-6.7) K/mm3 ESR (0-20) mm/hr PT (11.1-14.7) Seconds D-Dimer (<0.48) ug/mL Anion Gap (4-12) mmol/L BUN 21 H (7-17) mg/dL Creatinine (0.7-1.0) mg/dL Estimated GFR (59 - ) Glucose (65-110) mg/dL POC Capillary Glucose (65-105) mg/dl Uric Acid 8.1 H (2.5-7.5) mg/dL Total Bilirubin (0.2-1.3) mg/dL Alkaline Phosphatase (38-126) U/L C-Reactive Protein (<1.0) mg/dL NT-Pro-B Natriuret Pep (19.9-100) pg/mL Total Protein (6.3-8.2) g/dL Urine Appearance (Clear) Urine Protein (Negative) mg/dL Urine Ketones (Negative) mg/dL Urine Nitrate (Negative) Urine Bilirubin (Negative) Leukocyte Esterase Rfl (Negative) CHARLEEN/UL Urine RBC (0-2) /hpf Urine WBC (0-3) /hpf Urine WBC Clumps (None) /HPF H & H 08/23/24 08/24/24 Range/Units 21:51 06:55 Hgb 13.6 11.6 L (12.0-15.0) g/dL Hct 43.3 37.6 (37.0-47.0) % Coagulation 08/23/24 Range/Units 21:51 INR 1.2 All other labs normal.
[2024-08-24 14:00] VITALS: BP 135/92; PULSE 90; RESP 24; TEMP 36.4; O2SAT 100
[2024-08-24 16:39] LABS: Glucose Point of Care 190 mg/dl (65-105)
[2024-08-24] MEDS: HYDROcodone/acetaminophen (*CRX) 5-325 MG TABLET 1 TAB PO (17:54)
[2024-08-24 21:23] LABS: Glucose Point of Care 165 mg/dl (65-105)
[2024-08-24 21:48] VITALS: BP 139/83; PULSE 64; RESP 20; TEMP 36.8; O2SAT 98
[2024-08-25] VITALS (14 sets, daily range): BP systolic 101–135; BP diastolic 58–93; PULSE 60–85; RESP 12–18; TEMP 36.1–36.7; O2SAT 92–100
[2024-08-25] MEDS: LACTATED RINGERS 1,000 ML 75 ML IV CONT (01:37)
[2024-08-25] MEDS: LEVOTHYROXINE SODIUM 150 MCG TABLET PO (05:23)
[2024-08-25] MEDS: VANCOMYCIN 1,250 MG/NS 250 ML 1,250 MG/250 ML BAG 166.67 MG IVPB (05:23)
[2024-08-25 06:01] LABS: Basophils Percent Auto 0.5 % (0.2-1.2); Eosinophils Absolute Auto 0.2 K/mm3 (0-0.3); Eosinophils Percent Auto 2.2 % (0-4.4); Hematocrit 33.9 % (37.0-47.0); Hemoglobin 10.5 g/dL (12.0-15.0); Immature Granulocyte Absolute 0.02 K/mm3 (0.00-0.031); Immature Granulocyte Percent A 0.3 % (0-0.5); Lymphocytes Percent Auto 19.2 % (18.3-44.2); Mean Corpuscular Hemoglobin 30.3 pg (26-34); Monocytes Absolute Auto 0.8 K/mm3 (0.1-0.6); Monocytes Percent Auto 9.8 % (2.6-8.5); Neutrophils Absolute Auto 5.3 K/mm3 (1.3-6.7); Platelet Count Result 287 k/mm3 (150-375); Red Blood Count 3.46 M/mm3 (4.2-5.4); Red Cell Distribution Width 13.7 % (11.5-14.5); White Blood Count 7.8 K/mm3 (4.5-10.0)
[2024-08-25 06:14] LABS: Alanine Aminotransferase 23 U/L (6-35); Albumin Level 3.1 g/dL (3.5-5.1); Alkaline Phosphatase 110 U/L (38-126); Anion Gap 6 mmol/L (4-12); Aspartate Amino Transferase 29 U/L (14-36); Bilirubin,Total 0.5 mg/dL (0.2-1.3); Blood Urea Nitrogen 18 mg/dL (7-17); Calcium 8.8 mg/dL (8.4-10.2); Carbon Dioxide 24 mmol/L (22-30); Chloride 108 mmol/L (98-107); Estimated CRCL calculation 56 ml/min; Estimated Glomerular Filt Rate > 60; Glucose 117 mg/dL (65-110); Magnesium 1.6 mg/dL (1.6-2.3); Potassium 3.6 mmol/L (3.4-5.0); Sodium 138 mmol/L (137-145)
[2024-08-25 06:39] LABS: Erythrocyte Sedimentation Rate 116 mm/hr (0-20)
[2024-08-25 07:52] LABS: Glucose Point of Care 109 mg/dl (65-105)
--- NOTE | 2024-08-25 08:56 | P.PNIM_ITS ---
Progress Note: A&P Assessment and Plan (1) ANTONETTE (acute kidney injury): Code(s): N17.9 - Acute kidney failure, unspecified Status: Acute Assessment and Plan: -Lab findings consistent with dehydration and acute kidney injury -Received IV fluids in ER and on IV fluids at rate pending Orthopedics evaluation 08/25 * Creatinine 0.79 * Resolved (2) UTI (urinary tract infection): Code(s): N39.0 - Urinary tract infection, site not specified Status: Acute Assessment and Plan: -UA consistent with UTI -Previously prescribed antibiotics for right leg cellulitis not able to be picked up at pharmacy -No prior positive urine cultures -Rocephin and vancomycin given in ER and will continue these on admit -Blood cultures pending 08/25 * Urine culture negative * Blood culture showing no growth to date on preliminary read * Patient will continue Rocephin and vancomycin for cellulitis and likely septic arthritis (3) Cellulitis of right lower leg: Code(s): L03.115 - Cellulitis of right lower limb Status: Acute Assessment and Plan: -Previously prescribed antibiotics for right leg cellulitis not able to be picked up at pharmacy -No prior positive blood or wound cultures -Rocephin and vancomycin given in ER and will continue these on admit -Blood cultures pending -Right leg swollen, lymphedema likely but with positive D-Dimer Ultrasound to r/o DVT ordered -Hold anticoagulation until orthopedics evaluation for possible procedure to right ankle 08/25 * Orthopedic surgery plans to take patient for I and D of the right ankle today * Continue Rocephin and vancomycin (4) Right ankle swelling: Code(s): M25.471 - Effusion, right ankle Status: Acute Assessment and Plan: -Previously seen in ER on 08/20/24 for pain/swelling, thought to be related to recent fall -CT obtained in ER today shows hardware in place with concern for infected ankle joint -Orthopedics to be consulted in the morning, patient NPO except sips with meds -PT/OT and Case Management consults needed 08/25 * Orthopedic surgery plans to take patient for I&D of the right ankle today * Continue Rocephin and vancomycin * Continue PT and OT * Ortho following (5) Multiple falls: Code(s): R29.6 - Repeated falls Status: Acute Assessment and Plan: -Recent fall with right ankle/foot injury with inability to care for self at home -PT/OT need consulted after Orthopedics evaluation/treatment -SNF will likely be needed on discharge -Case Management consulted by ER -Right foot 5th metatarsal possible fracture/dislocation on X-ray obtained 08/20/2408/25 * Continue fall precaution * Will likely need SNF placement at discharge * Continue PT and OT (6) Adult failure to thrive: Code(s): R62.7 - Adult failure to thrive Status: Acute Assessment and Plan: See above, unable to care for self at home d/t unable to ambulate related to right foot/ankle/leg concerns (7) Essential hypertension: Code(s): I10 - Essential (primary) hypertension Status: Acute Assessment and Plan: -History of hypertension -Hold benazepril due to ANTONETTE, resume once renal function improved if BP elevates 08/25 * No change to current treatment plan (8) Mixed hyperlipidemia: Code(s): E78.2 - Mixed hyperlipidemia Status: Acute Assessment and Plan: -Continue home medications (9) Prediabetes: Code(s): R73.03 - Prediabetes Status: Acute Assessment and Plan: -Patient prescribed metformin, will hold due to ANTONETTE and CT contrast on admit date -A1c ordered -ACHS fingerstick glucose with low dose SSI ordered -Patient NPO until Orthopedics evaluation and care planning complete 08/25 * Blood sugars ranging 76-109 * Hgb A1C 5.5 * Accu checks AC/HS * Low-dose SSI ordered * hypoglycemic protocol in place * Diabetic diet ordered for dinner tonight Time Spent With Patient Time with patient: 25 - 35 minutes Subjective Date/time seen: 08/25/24 08:56 Interval history: Interval summary: This is a 64-year-old female with a significant past medical history of who presented to the hospital with right leg swelling and concerns for infection. 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 Chest CTA was negative for PE or any acute cardiopulmonary disease, showed atelectasis in bilateral lower lobes, cholelithiasis. Venous Doppler study was negative for DVT in the right lower extremity. Initial labs showed a white blood cell count of 10.2, ESR 22, D-dimer 3.49, INR 1.2, creatinine 1.11, EGFR 49, blood sugars ranging 97 to 122, total bili 1.7, alkaline phosphate 162, C reactive protein 20.4, proBNP 127, procalcitonin 0.1. UA was obtained which showed cloudy urine appearance, 2+ urine protein, trace urine ketone, positive nitrate, 3+ urine bilirubin, 1+ leukocytes, 21-50 urine RBC, 21-50 urine wbc's, greater than 20 cast. Blood cultures were obtained and showing no growth to date on preliminary read. urine culture was also obtained and was negative on final read. Orthopedic surgery was consulted and they did an aspiration of the right ankle synovial fluid and sent that for culture which is pending. Patient is currently on Rocephin and vancomycin. Subjective: Patient denies any new complaints today. Labs reviewed. Review of Systems Review of Systems: All systems reviewed & are unremarkable except as noted in HPI and below Exam Narrative: General: In no acute distress, well nourished, talkative Head: atraumatic, no encephalopathy Eyes: PERRLA, sclera clear ENT: moist mucous membranes, nasal passages clear Neck: supple, no JVD, no adenopathy, trachea midline Cardiac: Normal S1 and S2. RRR, No murmur, gallops or friction rubs, peripheral pulses intact. Respiratory: Lungs clear to auscultation, no adventitious lung sounds, currently on room air Gastrointestinal: soft, non-distended, non-tender, normoactive bowel sounds : voiding without difficulty. Extremities: moves all extremities well, edema right ankle Skin: right foot and ankle red and warm to touch, painful, Neuro: Alert and oriented x4, cranial nerves intact, no neuro deficits. Psych: normal mood, normal affect, interactive Objective Data Vital Signs Vital Signs: Vital Signs - 24 hr 08/24/24 10:23 08/24/24 14:00 08/24/24 20:00 Temperature 97.5 F L Pulse Rate 90 Respiratory Rate 24 H Blood Pressure 135/92 H Pulse Oximetry 96 100 Oxygen Delivery Room Air Room Air 08/24/24 21:48 08/25/24 06:00 Temperature 98.3 F 98.1 F Pulse Rate 64 69 Respiratory Rate 20 16 Blood Pressure 139/83 135/93 H Pulse Oximetry 98 96 Oxygen Delivery Intake/Output Intake/Output: Intake & Output 08/22/24 08/23/24 08/24/24 08/25/24 23:59 23:59 23:59 23:59 Intake Total 1550 1580 322 Output Total 200 100 Balance 1550 1380 222 Meds/Results Medications: Active Medications Generic Name Dose Route Start Last Admin Trade Name Freq PRN Reason Stop Dose Admin Acetaminophen 650 mg 08/24/24 04:30 Acetaminophen 325 Mg Tablet PO Q4H PRN Mild Pain (1-3) or Fever Hydrocodone Bitart/Acetaminophen 1 tab 08/24/24 06:10 Hydrocodone/Acetaminophen (*Crx) 10-325 Mg Tablet PO Q4H PRN Pain Rated 7-10 Hydrocodone Bitart/Acetaminophen 1 tab 08/24/24 06:11 08/24/24 17:54 Hydrocodone/Acetaminophen (*Crx) 5-325 Mg Tablet PO 1 tab Q4H PRN Administration Pain Rated 4-6 Amlodipine Besylate 5 mg 08/24/24 09:00 08/24/24 08:51 Amlodipine Besylate 5 Mg Tablet PO 5 mg DAILY DELBERT Administration Dextrose 12.5 gm 08/24/24 05:51 Dextrose 50% 25 Gm/50 Ml Syringe IV PUSH PRN PRN Hypoglycemia Protocol Glucagon 1 mg 08/24/24 05:51 Glucagon For Inj 1 Mg Vial IM PRN PRN Hypoglycemia Protocol Glucose 15 gm 08/24/24 05:51 Glucose Oral Gel 15 Gm Of Glucse In 37.5 Gm Tube PO PRN PRN Hypoglycemia Protocol Lactated Ringer's 1,000 mls @ 75 mls/hr 08/24/24 04:30 08/25/24 01:37 Lr - Lactated Ringers Iv IV CONT 75 mls/hr .[id number] DELBERT Administration Dextrose 1,000 mls @ 100 mls/hr 08/24/24 05:51 Dextrose 5% 1,000 Ml IVPB PRN PRN Hypoglycemia Protocol Ceftriaxone Sodium 2 gm in 100 mls @ 200 mls/hr 08/24/24 09:00 08/24/24 09:21 Rocephin 2 Gm/Ns 100 Ml IVPB Infused Q24H DELBERT Infusion Vancomycin HCl 1,250 mg in 250 mls @ 166.667 mls/hr 08/25/24 06:00 08/25/24 05:23 Vancomycin 1,250 Mg/Ns 250 Ml IVPB 166.67 mls/hr Q24H DELBERT Administration Magnesium Sulfate 2 gm in 50 mls @ 25 mls/hr 08/25/24 08:54 Magnesium Sulf 2 Gm/Water 50ml IVPB 08/25/24 10:53 ONCE ONE Insulin Aspart 2 - 5 units 08/24/24 08:00 08/25/24 08:03 Insulin Aspart (*Bkc) 100 Units/Ml SUB-Q Not Given TIDWM [facility] Protocol Levothyroxine Sodium 150 mcg 08/24/24 06:30 08/25/24 05:23 Levothyroxine Sodium 150 Mcg Tablet PO 150 mcg DAILY@0630 DELBERT Administration Ondansetron HCl 4 mg 08/24/24 04:30 Ondansetron Inj 4 Mg/2 Ml Vial IV PUSH Q4H PRN Nausea Ondansetron HCl 4 mg 08/24/24 06:11 Ondansetron Inj 4 Mg/2 Ml Vial IV PUSH Q4H PRN Nausea And Vomiting Pantoprazole Sodium 40 mg 08/24/24 09:00 08/24/24 12:26 Pantoprazole 40 Mg Tablet PO Not Given QAM [facility] Simvastatin 10 mg 08/24/24 09:00 08/24/24 08:51 Simvastatin 10 Mg Tablet PO 10 mg DAILY DELBERT Administration Spironolactone 50 mg 08/24/24 09:00 08/24/24 08:51 Spironolactone 50 Mg Tablet PO 50 mg DAILY DELBERT Administration Vitamin D 1,000 units 08/24/24 09:00 08/24/24 08:51 Cholecalciferol 1,000 Units Tablet PO 1,000 units DAILY DELBERT Administration Radiology Results: ITS Impressions Ankle CT 08/24/24 06:16 IMPRESSION: 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 Moderate effusion arising from the tibiotalar joint. Septic arthritis is not excluded. Correlate clinically. Prior orthopedic fusion of the subtalar joint, talonavicular joint, and calcaneocuboid joint. Mild diffuse subcutaneous soft tissue edema. Correlate for cellulitis. Chest CTA 08/24/24 10:03 IMPRESSION: 1. Atelectasis in the bilateral lower lobes. No pulmonary embolism or other acute cardiopulmonary disease. 2. Cholelithiasis. Venous Doppler Study 08/24/24 15:36 IMPRESSION: 1. No deep venous thrombosis within the right lower extremity, as detailed above. Joint Aspiration/Injection 08/24/24 16:03 IMPRESSION: 1. Successful right tibiotalar arthrocentesis yielding 6 mL of opaque yellow purulent appearing fluid. Labs Labs: Laboratory Results - last 24 hr 08/24/24 08/24/24 08/24/24 06:43 12:05 16:36 WBC RBC Hgb Hct MCV MCH MCHC RDW Plt Count MPV Immature Gran % (Auto) Neut % (Auto) Lymph % (Auto) [place] % (Auto) Eos % (Auto) Baso % (Auto) Lymph # (Auto) [place] # (Auto) Eos # (Auto) Baso # (Auto) Abs Immat Gran (auto) Absolute Neuts (auto) Absolute Nucleated RBC Nucleated RBC % ESR Sodium Potassium Chloride Carbon Dioxide Anion Gap BUN Creatinine Estim Creat Clear Calc Estimated GFR Glucose POC Capillary Glucose 82 190 H Uric Acid 8.1 H Calcium Magnesium Total Bilirubin AST ALT Alkaline Phosphatase Total Protein Albumin 08/24/24 08/25/24 08/25/24 21:20 05:31 07:36 WBC 7.8 RBC 3.46 L Hgb 10.5 L Hct 33.9 L MCV 98.0 MCH 30.3 MCHC 31.0 L RDW 13.7 Plt Count 287 MPV 10.0 Immature Gran % (Auto) 0.3 Neut % (Auto) 68.0 Lymph % (Auto) 19.2 [place] % (Auto) 9.8 H Eos % (Auto) 2.2 Baso % (Auto) 0.5 Lymph # (Auto) 1.50 [place] # (Auto) 0.8 H Eos # (Auto) 0.2 Baso # (Auto) 0.0 Abs Immat Gran (auto) 0.02 Absolute Neuts (auto) 5.3 Absolute Nucleated RBC 0.000 Nucleated RBC % 0.0 ESR 116 H Sodium 138 Potassium 3.6 Chloride 108 H Carbon Dioxide 24 Anion Gap 6 BUN 18 H Creatinine 0.79 Estim Creat Clear Calc 56 Estimated GFR > 60 Glucose 117 H POC Capillary Glucose 165 H 109 H Uric Acid Calcium 8.8 Magnesium 1.6 Total Bilirubin 0.5 AST 29 ALT 23 Alkaline Phosphatase 110 Total Protein 7.0 Albumin 3.1 L Quality VTE Prophylaxis VTE prophylaxis: mechanical ordered
[2024-08-25] MEDS: cefTRIAXone 2 GM/NS 100 ML 2 GM/100 ML BAG IVPB (09:55)
[2024-08-25] MEDS: amLODIPine BESYLATE 5 MG TABLET PO (09:55)
[2024-08-25] MEDS: HYDROcodone/acetaminophen (*CRX) 5-325 MG TABLET 1 TAB PO (10:01)
[2024-08-25] MEDS: MAGNESIUM SULF 2 GM/WATER 50ML 2 GM/50 ML BAG IVPB (11:32)
[2024-08-25 11:50] LABS: Glucose Point of Care 89 mg/dl (65-105)
--- NOTE | 2024-08-25 12:26 | PM.PNORT ---
Progress Note: A&P Assessment and Plan (1) Cellulitis of right ankle: Code(s): L03.115 - Cellulitis of right lower limb Status: Acute Assessment and Plan: Patient has cellulitis of her right leg and probable septic arthritis. The aspiration so 6 cubic centimeters of purulent fluid. I think the best thing to do is to wash this out. She is at high risk for problems due to the fact she has lymphedema and previous surgery in this leg. I have discussed this with her risks benefits limitations and alternatives. Unfortunately I do not have a culture because it was not done before antibiotics were started. This will probably have to presume with a Gram-positive organism. We will proceed with debridement in the operating room discussed. (2) Septic arthritis of right ankle: Code(s): M00.9 - Pyogenic arthritis, unspecified Status: Acute Subjective Subjective Date/Time Seen: 08/25/24 12:26 Principal diagnosis: Cellulitis and septic right ankle Review of Systems Musculoskeletal: Musculoskeletal: Reports arthralgias, Reports joint swelling and Reports stiffness Neurologic: Reports abnormal gait Exam Narrative: Patient has redness and pain about right leg. He has mild pain with manipulation of her ankle. Objective Data Vital Signs Vital Signs: Vital Signs - 24 hr 08/24/24 14:00 08/24/24 20:00 08/24/24 21:48 Temperature 97.5 F L 98.3 F Pulse Rate 90 64 Respiratory Rate 24 H 20 Blood Pressure 135/92 H 139/83 Pulse Oximetry 100 98 Oxygen Delivery Room Air 08/25/24 06:00 Temperature 98.1 F Pulse Rate 69 Respiratory Rate 16 Blood Pressure 135/93 H Pulse Oximetry 96 Oxygen Delivery Intake/Output Intake/Output: Intake & Output 08/22/24 08/23/24 08/24/24 08/25/24 23:59 23:59 23:59 23:59 Intake Total 1550 1580 322 Output Total 200 100 Balance 1550 1380 222 Meds/Results Medications: Active Medications Generic Name Dose Route Start Last Admin Trade Name Freq PRN Reason Stop Dose Admin Acetaminophen 650 mg 08/24/24 04:30 Acetaminophen 325 Mg Tablet PO Q4H PRN Mild Pain (1-3) or Fever Hydrocodone Bitart/Acetaminophen 1 tab 08/24/24 06:10 Hydrocodone/Acetaminophen (*Crx) 10-325 Mg Tablet PO Q4H PRN Pain Rated 7-10 Hydrocodone Bitart/Acetaminophen 1 tab 08/24/24 06:11 08/25/24 10:01 Hydrocodone/Acetaminophen (*Crx) 5-325 Mg Tablet PO 1 tab Q4H PRN Administration Pain Rated 4-6 Amlodipine Besylate 5 mg 08/24/24 09:00 08/25/24 09:55 Amlodipine Besylate 5 Mg Tablet PO 5 mg DAILY DELBERT Administration Dextrose 12.5 gm 08/24/24 05:51 Dextrose 50% 25 Gm/50 Ml Syringe IV PUSH PRN PRN Hypoglycemia Protocol Glucagon 1 mg 08/24/24 05:51 Glucagon For Inj 1 Mg Vial IM PRN PRN Hypoglycemia Protocol Glucose 15 gm 08/24/24 05:51 Glucose Oral Gel 15 Gm Of Glucse In 37.5 Gm Tube PO PRN PRN Hypoglycemia Protocol Lactated Ringer's 1,000 mls @ 75 mls/hr 08/24/24 04:30 08/25/24 01:37 Lr - Lactated Ringers Iv IV CONT 75 mls/hr .[id number] DELBERT Administration Dextrose 1,000 mls @ 100 mls/hr 08/24/24 05:51 Dextrose 5% 1,000 Ml IVPB PRN PRN Hypoglycemia Protocol Ceftriaxone Sodium 2 gm in 100 mls @ 200 mls/hr 08/24/24 09:00 08/25/24 09:55 Rocephin 2 Gm/Ns 100 Ml IVPB 200 mls/hr Q24H DELBERT Administration Vancomycin HCl 1,250 mg in 250 mls @ 166.667 mls/hr 08/25/24 06:00 08/25/24 05:23 Vancomycin 1,250 Mg/Ns 250 Ml IVPB 166.67 mls/hr Q24H DELBERT Administration Insulin Aspart 2 - 5 units 08/24/24 08:00 08/25/24 08:03 Insulin Aspart (*Bkc) 100 Units/Ml SUB-Q Not Given TIDWM DELBERT Protocol Levothyroxine Sodium 150 mcg 08/24/24 06:30 08/25/24 05:23 Levothyroxine Sodium 150 Mcg Tablet PO 150 mcg DAILY@0630 DELBERT Administration Ondansetron HCl 4 mg 08/24/24 04:30 Ondansetron Inj 4 Mg/2 Ml Vial IV PUSH Q4H PRN Nausea Ondansetron HCl 4 mg 08/24/24 06:11 Ondansetron Inj 4 Mg/2 Ml Vial IV PUSH Q4H PRN Nausea And Vomiting Pantoprazole Sodium 40 mg 08/24/24 09:00 08/24/24 12:26 Pantoprazole 40 Mg Tablet PO Not Given QAM DELBERT Simvastatin 10 mg 08/24/24 09:00 08/24/24 08:51 Simvastatin 10 Mg Tablet PO 10 mg DAILY DELBERT Administration Spironolactone 50 mg 08/24/24 09:00 08/24/24 08:51 Spironolactone 50 Mg Tablet PO 50 mg DAILY DELBERT Administration Vitamin D 1,000 units 08/24/24 09:00 08/24/24 08:51 Cholecalciferol 1,000 Units Tablet PO 1,000 units DAILY DELBERT Administration Radiology Results: ITS Impressions Ankle CT 08/24/24 06:16 IMPRESSION: 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 Moderate effusion arising from the tibiotalar joint. Septic arthritis is not excluded. Correlate clinically. Prior orthopedic fusion of the subtalar joint, talonavicular joint, and calcaneocuboid joint. Mild diffuse subcutaneous soft tissue edema. Correlate for cellulitis. Chest CTA 08/24/24 10:03 IMPRESSION: 1. Atelectasis in the bilateral lower lobes. No pulmonary embolism or other acute cardiopulmonary disease. 2. Cholelithiasis. Venous Doppler Study 08/24/24 15:36 IMPRESSION: 1. No deep venous thrombosis within the right lower extremity, as detailed above. Joint Aspiration/Injection 08/24/24 16:03 IMPRESSION: 1. Successful right tibiotalar arthrocentesis yielding 6 mL of opaque yellow purulent appearing fluid. Labs Labs: Laboratory Results - last 24 hr 08/24/24 08/24/24 08/25/24 16:36 21:20 05:31 WBC 7.8 RBC 3.46 L Hgb 10.5 L Hct 33.9 L MCV 98.0 MCH 30.3 MCHC 31.0 L RDW 13.7 Plt Count 287 MPV 10.0 Immature Gran % (Auto) 0.3 Neut % (Auto) 68.0 Lymph % (Auto) 19.2 [place] % (Auto) 9.8 H Eos % (Auto) 2.2 Baso % (Auto) 0.5 Lymph # (Auto) 1.50 [place] # (Auto) 0.8 H Eos # (Auto) 0.2 Baso # (Auto) 0.0 Abs Immat Gran (auto) 0.02 Absolute Neuts (auto) 5.3 Absolute Nucleated RBC 0.000 Nucleated RBC % 0.0 ESR 116 H Sodium 138 Potassium 3.6 Chloride 108 H Carbon Dioxide 24 Anion Gap 6 BUN 18 H Creatinine 0.79 Estim Creat Clear Calc 56 Estimated GFR > 60 Glucose 117 H POC Capillary Glucose 190 H 165 H Calcium 8.8 Magnesium 1.6 Total Bilirubin 0.5 AST 29 ALT 23 Alkaline Phosphatase 110 Total Protein 7.0 Albumin 3.1 L 08/25/24 08/25/24 07:36 11:45 WBC RBC Hgb Hct MCV MCH MCHC RDW Plt Count MPV Immature Gran % (Auto) Neut % (Auto) Lymph % (Auto) [place] % (Auto) Eos % (Auto) Baso % (Auto) Lymph # (Auto) [place] # (Auto) Eos # (Auto) Baso # (Auto) Abs Immat Gran (auto) Absolute Neuts (auto) Absolute Nucleated RBC Nucleated RBC % ESR Sodium Potassium Chloride Carbon Dioxide Anion Gap BUN Creatinine Estim Creat Clear Calc Estimated GFR Glucose POC Capillary Glucose 109 H 89 Calcium Magnesium Total Bilirubin AST ALT Alkaline Phosphatase Total Protein Albumin
--- NOTE | 2024-08-25 12:28 | WPDHPUPDATE1 ---
History and Physical Update Update Date/Time: 08/25/24 12:28 History and Physical has been reviewed, including an updated exam of the patient. There are NO changes in the patient's condition. Risks, benefits, and alternatives have been discussed and questions answered. Patient agrees to proceed with procedure.
--- NOTE | 2024-08-25 13:22 | PCPTNOTE ---
Pt leaving for surgical procedure at this time. Will follow.
[2024-08-25 14:17] LABS: Glucose Point of Care 87 mg/dl (65-105)
--- NOTE | 2024-08-25 14:39 | P.PNAN_ITS ---
Anes - Initial Pre Proc Eval Procedure: Operation Date: 08/25/24 14:00 Proposed Procedures p Right Ankle Arthroscopy Washout, Possible Arthrotomy(Right) - Chacorta Godoy MD Date/Time: 08/25/24 14:39 Surgeon: Lisha Carroll APRN Pre Op Diagnosis: RLE pain/swelling; Cellulitis, Poss septic joint; Patient Data Age: 64 Gender: F Height: 1.55 m Weight: 72.9 kg Last Vital Signs Temp 36.6 C 08/25/24 14:12 Pulse 73 08/25/24 14:12 Resp 16 08/25/24 06:00 BP 117/78 08/25/24 14:12 Pulse Ox 98 08/25/24 14:12 O2 Del Method Room Air 08/25/24 14:12 Allergies Allergy/AdvReac Type Severity Reaction Status Date / Time hydrochlorothiazide Allergy Unknown Skin Verified 08/25/24 14:11 Reaction Penicillins Allergy Unknown allergic Verified 08/25/24 14:11 since childhood Sulfa (Sulfonamide Allergy Unknown Rash Verified 08/25/24 14:11 Antibiotics) clindamycin AdvReac Unknown Nausea Verified 08/25/24 14:11 Home Medications ?Medication ?Instructions ?Recorded ?Confirmed ?Type cholecalciferol (vitamin D3) 25 25 mcg PO DAILY 03/19/23 08/24/24 History mcg (1,000 unit) capsule levothyroxine 150 mcg tablet 150 mcg PO DAILY #90 tabs 09/30/23 08/24/24 Rx amlodipine 5 mg tablet 5 mg PO DAILY #90 tabs 03/01/24 08/24/24 Rx metformin 500 mg tablet,extended 500 mg PO HS #90 tabs 03/01/24 08/24/24 Rx release 24 hr simvastatin 10 mg tablet 10 mg PO DAILY #90 tabs 03/01/24 08/24/24 Rx spironolactone 50 mg tablet 50 mg PO DAILY #90 tabs 03/01/24 08/24/24 Rx benazepril 40 mg tablet 40 mg PO DAILY #90 tabs 07/21/24 08/24/24 Rx cephalexin 500 mg capsule 500 mg PO Q6H #28 caps 08/20/24 08/24/24 Rx Laboratory Tests 08/24/24 08/24/24 08/25/24 16:36 21:20 05:31 WBC 7.8 K/mm3 (4.5-10.0) RBC 3.46 L M/mm3 (4.2-5.4) Hgb 10.5 L g/dL (12.0-15.0) Hct 33.9 L % (37.0-47.0) MCV 98.0 fl (80-100) MCH 30.3 pg (26-34) MCHC 31.0 L g/dl (32-36) RDW 13.7 % (11.5-14.5) Plt Count 287 k/mm3 (150-375) MPV 10.0 fl (7.4-10.4) Immature Gran % (Auto) 0.3 % (0-0.5) Neut % (Auto) 68.0 % (45.5-73.1) Lymph % (Auto) 19.2 % (18.3-44.2) [place] % (Auto) 9.8 H % (2.6-8.5) Eos % (Auto) 2.2 % (0-4.4) Baso % (Auto) 0.5 % (0.2-1.2) Lymph # (Auto) 1.50 K/mm3 (0.9-3.2) [place] # (Auto) 0.8 H K/mm3 (0.1-0.6) Eos # (Auto) 0.2 K/mm3 (0-0.3) Baso # (Auto) 0.0 K/mm3 (0.0-0.1) Abs Immat Gran (auto) 0.02 K/mm3 (0.00-0.031) Absolute Neuts (auto) 5.3 K/mm3 (1.3-6.7) Absolute Nucleated RBC 0.000 K/mm3 (0.0-0.012) Nucleated RBC % 0.0 % (0.0-0.2) ESR 116 H mm/hr (0-20) Sodium 138 mmol/L (137-145) Potassium 3.6 mmol/L (3.4-5.0) Chloride 108 H mmol/L (98-107) Carbon Dioxide 24 mmol/L (22-30) Anion Gap 6 mmol/L (4-12) BUN 18 H mg/dL (7-17) Creatinine 0.79 mg/dL (0.7-1.0) Estim Creat Clear Calc 56 ml/min Estimated GFR > 60 (59 - ) Glucose 117 H mg/dL (65-110) POC Capillary Glucose 190 H mg/dl 165 H mg/dl (65-105) (65-105) Calcium 8.8 mg/dL (8.4-10.2) Magnesium 1.6 mg/dL (1.6-2.3) Total Bilirubin 0.5 mg/dL (0.2-1.3) AST 29 U/L (14-36) ALT 23 U/L (6-35) Alkaline Phosphatase 110 U/L (38-126) Total Protein 7.0 g/dL (6.3-8.2) Albumin 3.1 L g/dL (3.5-5.1) 08/25/24 08/25/24 08/25/24 07:36 11:45 13:52 WBC RBC Hgb Hct MCV MCH MCHC RDW Plt Count MPV Immature Gran % (Auto) Neut % (Auto) Lymph % (Auto) [place] % (Auto) Eos % (Auto) Baso % (Auto) Lymph # (Auto) [place] # (Auto) Eos # (Auto) Baso # (Auto) Abs Immat Gran (auto) Absolute Neuts (auto) Absolute Nucleated RBC Nucleated RBC % ESR Sodium Potassium Chloride Carbon Dioxide Anion Gap BUN Creatinine Estim Creat Clear Calc Estimated GFR Glucose POC Capillary Glucose 109 H mg/dl 89 mg/dl 87 mg/dl (65-105) (65-105) (65-105) Calcium Magnesium Total Bilirubin AST ALT Alkaline Phosphatase Total Protein Albumin Patient hx anesthesia problems: none Family hx anesthesia problems: none Results Review: All pre-operative results and documents have been reviewed as part of the pre- operative evaluation. [facility] Past Medical History Medical History CVA (cerebral vascular accident) April 2009 Thyroid disorder Knee pain, left Rhabdomyolysis Basal cell carcinoma 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 Mild asthma Migraine headache Closed fracture distal radius and ulna Lymphedema associated with obesity Other sequelae of other nontraumatic intracranial hemorrhage Mixed hyperlipidemia Overactive bladder Prediabetes Essential hypertension Unspecified intracranial hemorrhage Vascular dementia with behavioral disturbance Surgical History Surgical History History of basal cell carcinoma excision History of total abdominal hysterectomy and bilateral salpingo-oophorectomy (04/2000) History of tonsillectomy Family History Family History Father Diabetes mellitus Family history of cardiovascular disease Mother Family history of elevated blood lipids Diabetes mellitus Family history of malignant neoplasm of skin Hypertension Family history of cardiovascular disease Fall senior living resident Sibling Diabetes mellitus Hypertension senior living resident Grandparent Family history of malignant neoplasm of breast Social History Social History Social History: Surrogate decision maker: Ambar Oh, mother. Code status: Full code. Smoking status: Never smoker Alcohol intake: never Substance use: unknown Substance use type: does not use Do You Feel Safe in your Home?: Yes Lack of Transportation: No Lack of Food: Never True Current Housing: I Have Housing Concerned About Future Housing: No Difficulty Paying Gas/Electric Bills: No Difficulty Paying for Meds: No Currently Unemployed: No Education: High School Diploma/GED Difficulty w/ Childcare or Family Care: No Additional living arrangements comments: The patient lives in [place], and her mother's home. 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 Spiritual care concerns: No Anes - Eval Final PreProcedure Day of Procedure 08/25/24 14:39 Patient weight: obese Heart: regular rate and rhythm Lungs: decreased breath sounds Airway: Mallampati scale class III Neurological: alert and oriented Last oral intake: >/= 8 hours ASA classification: IV Emergent: no Anesthetic plan: proceed Anesthesia type and monitoring: general LMA and standard monitoring Results Review: All pre-operative results and documents have been reviewed as part of the pre- operative evaluation. Informed Consent: The patient's anesthetic plan and its attendant risks and benefits were discussed with the patient/family/POA. Questions were solicited and answers provided to the satisfaction of the patient/family/POA.
--- NOTE | 2024-08-25 14:50 | PCOTNOTE ---
Pt. currently in surgical procedure, unable to be seen for occupational therapy evaluation. Will see when safe and appropriate to particiapte
--- NOTE | 2024-08-25 16:00 | W.PM.PROC2 ---
Procedure Note - Detailed Date of Procedure 08/25/24 Pre-op Diagnosis Septic right ankle Post-op Diagnosis Same Procedure Performed Irrigation, debridement, and synovectomy right ankle Surgeon Chacorta Godoy MD Agriculture Manager Daisy Hughes Anesthesia General Description of Procedure Patient was brought to operating room #7. A general anesthetic was administered. She was sterilely prepped and draped in the usual manner. Standard anterolateral and anteromedial portals made. The cannulas were introduced. The joint was thoroughly flushed after taking a culture. I then proceeded to do a synovectomy to remove any debris and synovitis. At this point the joint looked reasonably clean although quite degenerative. Instruments withdrawn after 2 liters of fluid were flushed through. The wounds were closed with 3-0 nylon. Sterile dressing applied. Patient tolerated the procedure well. Estimated Blood Loss 10 Urine Output 100 Pathology Other (Cultures) Complications No immediate complications Condition Stable Disposition PACU [facility] Billing Surgery - Charge Forward: Surgery Billing ([id number] Scope and synovectomy)
[2024-08-25] MEDS: LACTATED RINGERS 1,000 ML 30 ML IV CONT (16:07)
[2024-08-25 16:18] LABS: Glucose Point of Care 76 mg/dl (65-105)
[2024-08-25] MEDS: fentaNYL CITRATE INJ (*CRX) 100 MCG/2 ML VIAL 25 MCG IV PUSH ×8 (16:21→17:16)
[2024-08-25 18:58] LABS: Glucose Point of Care 122 mg/dl (65-105)
[2024-08-26 00:30] VITALS: BP 119/82; PULSE 80; RESP 18; TEMP 36.9; O2SAT 97
[2024-08-26] MEDS: HYDROcodone/acetaminophen (*CRX) 5-325 MG TABLET 1 TAB PO ×2 (04:40→20:27)
[2024-08-26] MEDS: LEVOTHYROXINE SODIUM 150 MCG TABLET PO (05:16)
[2024-08-26 05:31] LABS: Basophils Percent Auto 0.5 % (0.2-1.2); Eosinophils Absolute Auto 0.2 K/mm3 (0-0.3); Hemoglobin 10.4 g/dL (12.0-15.0); Immature Granulocyte Absolute 0.01 K/mm3 (0.00-0.031); Immature Granulocyte Percent A 0.2 % (0-0.5); Lymphocytes Absolute Auto 1.17 K/mm3 (0.9-3.2); Lymphocytes Percent Auto 19.5 % (18.3-44.2); Mean Corpuscular HGB Conc 31.5 g/dl (32-36); Mean Corpuscular Hemoglobin 30.2 pg (26-34); Mean Corpuscular Volume 95.9 fl (80-100); Mean Platelet Volume 9.6 fl (7.4-10.4); Monocytes Absolute Auto 0.6 K/mm3 (0.1-0.6); Monocytes Percent Auto 10.2 % (2.6-8.5); Neutrophils Percent Auto 66.6 % (45.5-73.1); Platelet Count Result 249 k/mm3 (150-375); Red Blood Count 3.44 M/mm3 (4.2-5.4); Red Cell Distribution Width 13.5 % (11.5-14.5)
[2024-08-26 05:43] LABS: Alanine Aminotransferase 20 U/L (6-35); Albumin Level 2.9 g/dL (3.5-5.1); Alkaline Phosphatase 95 U/L (38-126); Anion Gap 6 mmol/L (4-12); Aspartate Amino Transferase 23 U/L (14-36); Bilirubin,Total 0.4 mg/dL (0.2-1.3); Blood Urea Nitrogen 9 mg/dL (7-17); Calcium 8.4 mg/dL (8.4-10.2); Carbon Dioxide 28 mmol/L (22-30); Chloride 103 mmol/L (98-107); Estimated CRCL calculation 69 ml/min; Estimated Glomerular Filt Rate > 60; Glucose 91 mg/dL (65-110); Magnesium 1.7 mg/dL (1.6-2.3); Potassium 3.6 mmol/L (3.4-5.0); Sodium 137 mmol/L (137-145)
[2024-08-26 05:51] LABS: Vancomycin Trough 5.7 ug/mL (10.0-20.0)
[2024-08-26 06:13] VITALS: BP 124/80; PULSE 76; RESP 20; TEMP 36.9; O2SAT 94
[2024-08-26] MEDS: VANCOMYCIN 1,250 MG/NS 250 ML 1,250 MG/250 ML BAG 166.67 MG IVPB (06:29)
--- NOTE | 2024-08-26 06:41 | PM.PNORT ---
Progress Note: A&P Assessment and Plan (1) Septic arthritis of right ankle: Code(s): M00.9 - Pyogenic arthritis, unspecified Status: Acute Assessment and Plan: Patient is doing well status post debridement. The erythema is receding. Will need antibiotics for a septic joint. (2) Cellulitis of right ankle: Code(s): L03.115 - Cellulitis of right lower limb Status: Acute Subjective Subjective Date/Time Seen: 08/26/24 06:41 Post Op day: 1 Principal diagnosis: I & D ANKLE RIGHT Review of Systems Musculoskeletal: Musculoskeletal: Reports arthralgias, Reports joint swelling and Reports stiffness Neurologic: Reports abnormal gait Exam Narrative: Patient has redness and pain about right leg. He has mild pain with manipulation of her ankle. Erythema is decreased. Objective Data Vital Signs Vital Signs: Vital Signs - 24 hr 08/25/24 10:01 08/25/24 14:12 08/25/24 16:07 Temperature 98 F 97.2 F L Pulse Rate 73 65 Respiratory Rate 14 Blood Pressure 117/78 111/70 Pulse Oximetry 98 100 Oxygen Delivery Room Air Room Air Simple Face Mask Oxygen Flow Rate 8 08/25/24 16:23 08/25/24 16:27 08/25/24 16:38 Temperature Pulse Rate 72 68 Respiratory Rate 14 14 Blood Pressure 126/79 116/78 Pulse Oximetry 100 98 96 Oxygen Delivery Simple Face Mask Room Air Room Air Oxygen Flow Rate 8 08/25/24 16:45 08/25/24 16:58 08/25/24 17:00 Temperature Pulse Rate 72 71 Respiratory Rate 12 12 Blood Pressure 119/73 103/61 Pulse Oximetry 96 92 98 Oxygen Delivery Room Air Nasal Cannula Nasal Cannula Oxygen Flow Rate 2 2 08/25/24 17:15 08/25/24 17:50 08/25/24 18:05 Temperature 96.9 F L 97.5 F L Pulse Rate 60 73 72 Respiratory Rate 12 16 16 Blood Pressure 101/65 123/58 L 128/74 Pulse Oximetry 99 100 100 Oxygen Delivery Nasal Cannula Oxygen Flow Rate 2 08/25/24 18:35 08/25/24 20:00 08/25/24 21:42 Temperature 97.2 F L 98.1 F Pulse Rate 85 82 Respiratory Rate 16 18 Blood Pressure 110/87 117/80 Pulse Oximetry 99 96 Oxygen Delivery Room Air Oxygen Flow Rate 08/26/24 00:30 08/26/24 06:13 Temperature 98.4 F 98.4 F Pulse Rate 80 76 Respiratory Rate 18 20 Blood Pressure 119/82 124/80 Pulse Oximetry 97 94 Oxygen Delivery Oxygen Flow Rate Intake/Output Intake/Output: Intake & Output 08/23/24 08/24/24 08/25/24 08/26/24 23:59 23:59 23:59 23:59 Intake Total 1550 1580 912 50 Output Total 200 400 400 Balance 1550 1380 512 -350 Meds/Results Medications: Active Medications Generic Name Dose Route Start Last Admin Trade Name Freq PRN Reason Stop Dose Admin Acetaminophen 650 mg 08/24/24 04:30 Acetaminophen 325 Mg Tablet PO Q4H PRN Mild Pain (1-3) or Fever Hydrocodone Bitart/Acetaminophen 1 tab 08/24/24 06:10 Hydrocodone/Acetaminophen (*Crx) 10-325 Mg Tablet PO Q4H PRN Pain Rated 7-10 Hydrocodone Bitart/Acetaminophen 1 tab 08/24/24 06:11 08/26/24 04:40 Hydrocodone/Acetaminophen (*Crx) 5-325 Mg Tablet PO 1 tab Q4H PRN Administration Pain Rated 4-6 Amlodipine Besylate 5 mg 08/24/24 09:00 08/25/24 09:55 Amlodipine Besylate 5 Mg Tablet PO 5 mg DAILY DELBERT Administration Dextrose 12.5 gm 08/24/24 05:51 Dextrose 50% 25 Gm/50 Ml Syringe IV PUSH PRN PRN Hypoglycemia Protocol Fentanyl Citrate 25 mcg 08/25/24 14:45 08/25/24 17:16 Fentanyl Citrate Inj (*Crx) 100 Mcg/2 Ml Vial IV PUSH 25 mcg Q2M PRN Administration Pain Glucagon 1 mg 08/24/24 05:51 Glucagon For Inj 1 Mg Vial IM PRN PRN Hypoglycemia Protocol Glucose 15 gm 08/24/24 05:51 Glucose Oral Gel 15 Gm Of Glucse In 37.5 Gm Tube PO PRN PRN Hypoglycemia Protocol Lactated Ringer's 1,000 mls @ 75 mls/hr 08/24/24 04:30 08/26/24 02:54 Lr - Lactated Ringers Iv IV CONT Not Given .[id number] DELBERT Dextrose 1,000 mls @ 100 mls/hr 08/24/24 05:51 Dextrose 5% 1,000 Ml IVPB PRN PRN Hypoglycemia Protocol Ceftriaxone Sodium 2 gm in 100 mls @ 200 mls/hr 08/24/24 09:00 08/25/24 09:55 Rocephin 2 Gm/Ns 100 Ml IVPB 200 mls/hr Q24H DELBERT Administration Vancomycin HCl 1,250 mg in 250 mls @ 166.667 mls/hr 08/26/24 06:00 08/26/24 06:29 Vancomycin 1,250 Mg/Ns 250 Ml IVPB 166.67 mls/hr Q12H DELBERT Administration Insulin Aspart 2 - 5 units 08/24/24 08:00 08/25/24 18:49 Insulin Aspart (*Bkc) 100 Units/Ml SUB-Q Not Given TIDWM [facility] Protocol Levothyroxine Sodium 150 mcg 08/24/24 06:30 08/26/24 05:16 Levothyroxine Sodium 150 Mcg Tablet PO 150 mcg DAILY@0630 DELBERT Administration Ondansetron HCl 4 mg 08/24/24 04:30 Ondansetron Inj 4 Mg/2 Ml Vial IV PUSH Q4H PRN Nausea Ondansetron HCl 4 mg 08/24/24 06:11 Ondansetron Inj 4 Mg/2 Ml Vial IV PUSH Q4H PRN Nausea And Vomiting Ondansetron HCl 4 mg 08/25/24 14:45 Ondansetron Inj 4 Mg/2 Ml Vial IV PUSH ONCE PRN Nausea Pantoprazole Sodium 40 mg 08/24/24 09:00 08/25/24 13:35 Pantoprazole 40 Mg Tablet PO Not Given QAM DELBERT Simvastatin 10 mg 08/24/24 09:00 08/25/24 13:35 Simvastatin 10 Mg Tablet PO Not Given DAILY DELBERT Spironolactone 50 mg 08/24/24 09:00 08/25/24 13:36 Spironolactone 50 Mg Tablet PO Not Given DAILY [facility] Vitamin D 1,000 units 08/24/24 09:00 08/25/24 13:36 Cholecalciferol 1,000 Units Tablet PO Not Given DAILY [facility] Radiology Results: ITS Impressions Ankle CT 08/24/24 06:16 IMPRESSION: 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 Moderate effusion arising from the tibiotalar joint. Septic arthritis is not excluded. Correlate clinically. Prior orthopedic fusion of the subtalar joint, talonavicular joint, and calcaneocuboid joint. Mild diffuse subcutaneous soft tissue edema. Correlate for cellulitis. Chest CTA 08/24/24 10:03 IMPRESSION: 1. Atelectasis in the bilateral lower lobes. No pulmonary embolism or other acute cardiopulmonary disease. 2. Cholelithiasis. Venous Doppler Study 08/24/24 15:36 IMPRESSION: 1. No deep venous thrombosis within the right lower extremity, as detailed above. Joint Aspiration/Injection 08/24/24 16:03 IMPRESSION: 1. Successful right tibiotalar arthrocentesis yielding 6 mL of opaque yellow purulent appearing fluid. Labs Labs: Laboratory Results - last 24 hr 08/25/24 08/25/24 08/25/24 07:36 11:45 13:52 WBC RBC Hgb Hct MCV MCH MCHC RDW Plt Count MPV Immature Gran % (Auto) Neut % (Auto) Lymph % (Auto) [place] % (Auto) Eos % (Auto) Baso % (Auto) Lymph # (Auto) [place] # (Auto) Eos # (Auto) Baso # (Auto) Abs Immat Gran (auto) Absolute Neuts (auto) Absolute Nucleated RBC Nucleated RBC % Sodium Potassium Chloride Carbon Dioxide Anion Gap BUN Creatinine Estim Creat Clear Calc Estimated GFR Glucose POC Capillary Glucose 109 H 89 87 Calcium Magnesium Total Bilirubin AST ALT Alkaline Phosphatase Total Protein Albumin Vancomycin Trough 08/25/24 08/25/24 08/26/24 16:16 18:56 05:26 WBC 6.0 RBC 3.44 L Hgb 10.4 L Hct 33.0 L MCV 95.9 MCH 30.2 MCHC 31.5 L RDW 13.5 Plt Count 249 MPV 9.6 Immature Gran % (Auto) 0.2 Neut % (Auto) 66.6 Lymph % (Auto) 19.5 [place] % (Auto) 10.2 H Eos % (Auto) 3.0 Baso % (Auto) 0.5 Lymph # (Auto) 1.17 [place] # (Auto) 0.6 Eos # (Auto) 0.2 Baso # (Auto) 0.0 Abs Immat Gran (auto) 0.01 Absolute Neuts (auto) 4.0 Absolute Nucleated RBC 0.000 Nucleated RBC % 0.0 Sodium 137 Potassium 3.6 Chloride 103 Carbon Dioxide 28 Anion Gap 6 BUN 9 D Creatinine 0.63 L Estim Creat Clear Calc 69 Estimated GFR > 60 Glucose 91 POC Capillary Glucose 76 122 H Calcium 8.4 Magnesium 1.7 Total Bilirubin 0.4 AST 23 ALT 20 Alkaline Phosphatase 95 Total Protein 6.0 L Albumin 2.9 L Vancomycin Trough 5.7 L
--- NOTE | 2024-08-26 08:08 | P.PNINF_ITS ---
Pharmacy ID Consult Stewardship Interventions Type of Interventions: Discharge Recommendation and Other (Empiric Therapy on Da y of Consult) Pharmacy ID Note: Subjective Pharmacy was consulted by Dr. Godoy regarding infectious diseases for Lily Oh. Lily Oh is a 64 year old F with concerns regarding Septic Arthritis. Background The patient is currently receiving Vancomycin and Ceftriaxone IV D3. The patient's PMH includes recent/concurrent cellulitis and having a right ankle effusion among others listed in providers notes. Additionally, patient was seen and prescribed Keflex for the management of cellulitis on 08/20 - this was not picked up from her pharmacy per notes. Patient underwent aspiration (08/24) of joint after antibiotic initiation. 6 mL of yellow/opaque fluid was obtained. Patient underwent washout with consulting provider on 08/25 and notes on this day show improvement of cellulitis surrounding the joint as well. Cultures from aspiration on 08/24 are no growth to date, however stain shows no organisms. 08/25 joint culture (washout) pending. 08/24 BCX are NGTD and UCX finalized as <10k CFU of a GNR. Patient was admitted with WBC of 10.2 on 08/23 but has been non-leukocytotic since and afebrile for the whole duration. Patient has a penicillin, clindamyicn, and sulfa allergy. Assessment/Recommendation/Discussion Spoke briefly with consulting provider on day of consult - provider agreed with Ceftriaxone and Vancomycin empirically at the time for Streptococcus and MSSA and MRSA empiric coverage at the time and that additional information via aspiration / washout would be needed. Spoke again with provider today about setting patient up for discharge. Patient has PCN allergy listed, but regarding allergy from childhood - consulting provider felt okay to attempt PCN again and to ensure good streptococcal and MRSA coverage - patient is de-escalated to Augmentin and Doxycycline PO 875 mg BID and 100 mg BID respectively for 28 days from day of washout (today is d1 therapy to finish on 09/22/24). Patient to receive at least 1 dose of Augmentin inpatient to assess tolerability. IV antibiotics discontinued. RN informed to monitor for allergic affects of Augmentin. Given tolerance of ceftriaxone, alternatives include oral cefuroxime, cefpodoxime or cefdinir which are also twice daily, but Augmentin is preferred due to its higher bioavailability. Will sign off at this time. Thank you for the interesting consult. Collins K. Perez, PharmD Infectious Disease/Antimicrobial Stewardship Pharmacist 08/26/24; 0808 WBC 6.0 K/mm3 (4.5-10.0) 08/26/24 05:26 Creatinine 0.63 mg/dL (0.7-1.0) L 08/26/24 05:26 Estim Creat Clear Calc 69 ml/min 08/26/24 05:26
[2024-08-26 08:15] LABS: Glucose Point of Care 90 mg/dl (65-105)
[2024-08-26] MEDS: PANTOPRAZOLE 40 MG TABLET PO (09:32)
[2024-08-26] MEDS: SIMVASTATIN 10 MG TABLET PO (09:32)
[2024-08-26] MEDS: amLODIPine BESYLATE 5 MG TABLET PO (09:32)
[2024-08-26] MEDS: CHOLECALCIFEROL 1,000 UNITS TABLET 1000 UNITS PO (09:32)
[2024-08-26] MEDS: SPIRONOLACTONE 50 MG TABLET PO (09:33)
[2024-08-26] MEDS: DOXYCYCLINE HYCLATE 100 MG TABLET PO ×2 (09:34→20:29)
[2024-08-26] MEDS: AMOXICILLIN/CLAVULANATE K 875-125 MG TAB 1 TABLET PO ×2 (09:35→20:29)
[2024-08-26 11:32] LABS: Glucose Point of Care 142 mg/dl (65-105)
--- NOTE | 2024-08-26 11:44 | P.PNIM_ITS ---
Progress Note: A&P Assessment and Plan (1) ANTONETTE (acute kidney injury): Code(s): N17.9 - Acute kidney failure, unspecified Status: Acute Assessment and Plan: -Lab findings consistent with dehydration and acute kidney injury -Received IV fluids in ER and on IV fluids at rate pending Orthopedics evaluation 08/25 * Creatinine 0.79 * Resolved (2) UTI (urinary tract infection): Code(s): N39.0 - Urinary tract infection, site not specified Status: Acute Assessment and Plan: -UA consistent with UTI -Previously prescribed antibiotics for right leg cellulitis not able to be picked up at pharmacy -No prior positive urine cultures -Rocephin and vancomycin given in ER and will continue these on admit -Blood cultures pending 08/25 * Urine culture negative * Blood culture showing no growth to date on preliminary read * Patient will continue Rocephin and vancomycin for cellulitis and likely septic arthritis 08/26 * No change (3) Cellulitis of right lower leg: Code(s): L03.115 - Cellulitis of right lower limb Status: Acute Assessment and Plan: -Previously prescribed antibiotics for right leg cellulitis not able to be picked up at pharmacy -No prior positive blood or wound cultures -Rocephin and vancomycin given in ER and will continue these on admit -Blood cultures pending -Right leg swollen, lymphedema likely but with positive D-Dimer Ultrasound to r/o DVT ordered -Hold anticoagulation until orthopedics evaluation for possible procedure to right ankle 08/25 * Orthopedic surgery plans to take patient for I and D of the right ankle today * Continue Rocephin and vancomycin 08/26 * Patient is postop day 1 from I&D of the right ankle * Rocephin and vancomycin changed to Augmentin and doxycycline for 28 days per Infectious Disease pharmacist recommendation immediately postop for septic joint * Synovial fluid from the right ankle showed Staph aureus on preliminary read * Blood cultures showing no growth to date on preliminary read (4) Right ankle swelling: Code(s): M25.471 - Effusion, right ankle Status: Acute Assessment and Plan: -Previously seen in ER on 08/20/24 for pain/swelling, thought to be related to recent fall -CT obtained in ER today shows hardware in place with concern for infected ankle joint -Orthopedics to be consulted in the morning, patient NPO except sips with meds -PT/OT and Case Management consults needed 08/25 * Orthopedic surgery plans to take patient for I&D of the right ankle today * Continue Rocephin and vancomycin * Continue PT and OT * Ortho following 08/26 * Postop day 1 from I&D of the right ankle * Rocephin and vancomycin switched to Augmentin and doxycycline per Infectious Disease pharmacy recommendation and will remain on these antibiotics for total of 28 days. * Continue PT and OT * Ortho following * Case coordination working on SNF placement (5) Multiple falls: Code(s): R29.6 - Repeated falls Status: Acute Assessment and Plan: -Recent fall with right ankle/foot injury with inability to care for self at home -PT/OT need consulted after Orthopedics evaluation/treatment -SNF will likely be needed on discharge -Case Management consulted by ER -Right foot 5th metatarsal possible fracture/dislocation on X-ray obtained 08/20/2408/25 * Continue fall precaution * Will likely need SNF placement at discharge * Continue PT and OT 08/26 * No change to current treatment plan (6) Adult failure to thrive: Code(s): R62.7 - Adult failure to thrive Status: Acute Assessment and Plan: See above, unable to care for self at home d/t unable to ambulate related to right foot/ankle/leg concerns (7) Essential hypertension: Code(s): I10 - Essential (primary) hypertension Status: Acute Assessment and Plan: -History of hypertension -Hold benazepril due to ANTONETTE, resume once renal function improved if BP elevates 08/25 * No change to current treatment plan (8) Mixed hyperlipidemia: Code(s): E78.2 - Mixed hyperlipidemia Status: Acute Assessment and Plan: -Continue home medications (9) Prediabetes: Code(s): R73.03 - Prediabetes Status: Acute Assessment and Plan: -Patient prescribed metformin, will hold due to ANTONETTE and CT contrast on admit date -A1c ordered -ACHS fingerstick glucose with low dose SSI ordered -Patient NPO until Orthopedics evaluation and care planning complete 08/25 * Blood sugars ranging 76-109 * Hgb A1C 5.5 * Accu checks AC/HS * Low-dose SSI ordered * hypoglycemic protocol in place * Diabetic diet ordered for dinner tonight Time Spent With Patient Time with patient: 25 - 35 minutes Subjective Date/time seen: 08/26/24 11:44 Interval history: Interval summary: This is a 64-year-old female with a significant past medical history of who presented to the hospital with right leg swelling and concerns for infection. 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 Chest CTA was negative for PE or any acute cardiopulmonary disease, showed atelectasis in bilateral lower lobes, cholelithiasis. Venous Doppler study was negative for DVT in the right lower extremity. Initial labs showed a white blood cell count of 10.2, ESR 22, D-dimer 3.49, INR 1.2, creatinine 1.11, EGFR 49, blood sugars ranging 97 to 122, total bili 1.7, alkaline phosphate 162, C reactive protein 20.4, proBNP 127, procalcitonin 0.1. UA was obtained which showed cloudy urine appearance, 2+ urine protein, trace urine ketone, positive nitrate, 3+ urine bilirubin, 1+ leukocytes, 21-50 urine RBC, 21-50 urine wbc's, greater than 20 cast. Blood cultures were obtained and showing no growth to date on preliminary read. urine culture was also obtained and was negative on final read. Orthopedic surgery was consulted and they did an aspiration of the right ankle synovial fluid and sent that for culture which is pending. Patient is currently on Rocephin and vancomycin. Subjective: Patient denies any new complaints today. Labs reviewed. Review of Systems Review of Systems: All systems reviewed & are unremarkable except as noted in HPI and below Exam Narrative: General: In no acute distress, well nourished, talkative Cardiac: Normal S1 and S2. RRR, No murmur, gallops or friction rubs, peripheral pulses intact. Respiratory: Lungs clear to auscultation, no adventitious lung sounds, currently on room air Gastrointestinal: soft, non-distended, non-tender, normoactive bowel sounds : voiding without difficulty. Extremities: moves all extremities well, edema right ankle Skin: right foot and ankle wrapped in OR dressing, good capillary refill Neuro: Alert and oriented x4 Objective Data Vital Signs Vital Signs: Vital Signs - 24 hr 08/25/24 14:12 08/25/24 16:07 08/25/24 16:23 Temperature 98 F 97.2 F L Pulse Rate 73 65 72 Respiratory Rate 14 14 Blood Pressure 117/78 111/70 126/79 Pulse Oximetry 98 100 100 Oxygen Delivery Room Air Simple Face Mask Simple Face Mask Oxygen Flow Rate 8 8 08/25/24 16:27 08/25/24 16:38 08/25/24 16:45 Temperature Pulse Rate 68 72 Respiratory Rate 14 12 Blood Pressure 116/78 119/73 Pulse Oximetry 98 96 96 Oxygen Delivery Room Air Room Air Room Air Oxygen Flow Rate 08/25/24 16:58 08/25/24 17:00 08/25/24 17:15 Temperature Pulse Rate 71 60 Respiratory Rate 12 12 Blood Pressure 103/61 101/65 Pulse Oximetry 92 98 99 Oxygen Delivery Nasal Cannula Nasal Cannula Nasal Cannula Oxygen Flow Rate 2 2 2 08/25/24 17:50 08/25/24 18:05 08/25/24 18:35 Temperature 96.9 F L 97.5 F L 97.2 F L Pulse Rate 73 72 85 Respiratory Rate 16 16 16 Blood Pressure 123/58 L 128/74 110/87 Pulse Oximetry 100 100 99 Oxygen Delivery Oxygen Flow Rate 08/25/24 20:00 08/25/24 21:42 08/26/24 00:30 Temperature 98.1 F 98.4 F Pulse Rate 82 80 Respiratory Rate 18 18 Blood Pressure 117/80 119/82 Pulse Oximetry 96 97 Oxygen Delivery Room Air Oxygen Flow Rate 08/26/24 06:13 08/26/24 08:00 08/26/24 09:04 Temperature 98.4 F Pulse Rate 76 Respiratory Rate 20 Blood Pressure 124/80 Pulse Oximetry 94 Oxygen Delivery Room Air Room Air Oxygen Flow Rate Intake/Output Intake/Output: Intake & Output 08/23/24 08/24/24 08/25/24 08/26/24 23:59 23:59 23:59 23:59 Intake Total 1550 1580 912 168 Output Total 200 400 400 Balance 1550 1380 512 -232 Meds/Results Medications: Active Medications Generic Name Dose Route Start Last Admin Trade Name Freq PRN Reason Stop Dose Admin Acetaminophen 650 mg 08/24/24 04:30 Acetaminophen 325 Mg Tablet PO Q4H PRN Mild Pain (1-3) or Fever Hydrocodone Bitart/Acetaminophen 1 tab 08/24/24 06:10 Hydrocodone/Acetaminophen (*Crx) 10-325 Mg Tablet PO Q4H PRN Pain Rated 7-10 Hydrocodone Bitart/Acetaminophen 1 tab 08/24/24 06:11 08/26/24 04:40 Hydrocodone/Acetaminophen (*Crx) 5-325 Mg Tablet PO 1 tab Q4H PRN Administration Pain Rated 4-6 Amlodipine Besylate 5 mg 08/24/24 09:00 08/26/24 09:32 Amlodipine Besylate 5 Mg Tablet PO 5 mg DAILY DELBERT Administration Amoxicillin/Clavulanate Potassium 1 tablet 08/26/24 09:00 08/26/24 09:35 Amoxicillin/Clavulanate K 875-125 Mg Tab PO 09/22/24 21:01 1 tablet Q12HR DELBERT Administration Dextrose 12.5 gm 08/24/24 05:51 Dextrose 50% 25 Gm/50 Ml Syringe IV PUSH PRN PRN Hypoglycemia Protocol Doxycycline Hyclate 100 mg 08/26/24 09:00 08/26/24 09:34 Doxycycline Hyclate 100 Mg Tablet PO 09/22/24 21:01 100 mg Q12HR DELBERT Administration Fentanyl Citrate 25 mcg 08/25/24 14:45 08/25/24 17:16 Fentanyl Citrate Inj (*Crx) 100 Mcg/2 Ml Vial IV PUSH 25 mcg Q2M PRN Administration Pain Glucagon 1 mg 08/24/24 05:51 Glucagon For Inj 1 Mg Vial IM PRN PRN Hypoglycemia Protocol Glucose 15 gm 08/24/24 05:51 Glucose Oral Gel 15 Gm Of Glucse In 37.5 Gm Tube PO PRN PRN Hypoglycemia Protocol Lactated Ringer's 1,000 mls @ 75 mls/hr 08/24/24 04:30 08/26/24 02:54 Lr - Lactated Ringers Iv IV CONT Not Given .[id number] DELBERT Dextrose 1,000 mls @ 100 mls/hr 08/24/24 05:51 Dextrose 5% 1,000 Ml IVPB PRN PRN Hypoglycemia Protocol Insulin Aspart 2 - 5 units 08/24/24 08:00 08/26/24 09:31 Insulin Aspart (*Bkc) 100 Units/Ml SUB-Q Not Given TIDWM [facility] Protocol Levothyroxine Sodium 150 mcg 08/24/24 06:30 08/26/24 05:16 Levothyroxine Sodium 150 Mcg Tablet PO 150 mcg DAILY@0630 DELBERT Administration Ondansetron HCl 4 mg 08/24/24 04:30 Ondansetron Inj 4 Mg/2 Ml Vial IV PUSH Q4H PRN Nausea Ondansetron HCl 4 mg 08/24/24 06:11 Ondansetron Inj 4 Mg/2 Ml Vial IV PUSH Q4H PRN Nausea And Vomiting Ondansetron HCl 4 mg 08/25/24 14:45 Ondansetron Inj 4 Mg/2 Ml Vial IV PUSH ONCE PRN Nausea Pantoprazole Sodium 40 mg 08/24/24 09:00 08/26/24 09:32 Pantoprazole 40 Mg Tablet PO 40 mg QAM DELBERT Administration Simvastatin 10 mg 08/24/24 09:00 08/26/24 09:32 Simvastatin 10 Mg Tablet PO 10 mg DAILY DELBERT Administration Spironolactone 50 mg 08/24/24 09:00 08/26/24 09:33 Spironolactone 50 Mg Tablet PO 50 mg DAILY DELBERT Administration Vitamin D 1,000 units 08/24/24 09:00 08/26/24 09:32 Cholecalciferol 1,000 Units Tablet PO 1,000 units DAILY DELBERT Administration Radiology Results: ITS Impressions Ankle CT 08/24/24 06:16 IMPRESSION: 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 Moderate effusion arising from the tibiotalar joint. Septic arthritis is not excluded. Correlate clinically. Prior orthopedic fusion of the subtalar joint, talonavicular joint, and calcaneocuboid joint. Mild diffuse subcutaneous soft tissue edema. Correlate for cellulitis. Chest CTA 08/24/24 10:03 IMPRESSION: 1. Atelectasis in the bilateral lower lobes. No pulmonary embolism or other acute cardiopulmonary disease. 2. Cholelithiasis. Venous Doppler Study 08/24/24 15:36 IMPRESSION: 1. No deep venous thrombosis within the right lower extremity, as detailed ab ove. Joint Aspiration/Injection 08/24/24 16:03 IMPRESSION: 1. Successful right tibiotalar arthrocentesis yielding 6 mL of opaque yellow purulent appearing fluid. Labs Labs: Laboratory Results - last 24 hr 08/25/24 08/25/24 08/25/24 11:45 13:52 16:16 WBC RBC Hgb Hct MCV MCH MCHC RDW Plt Count MPV Immature Gran % (Auto) Neut % (Auto) Lymph % (Auto) [place] % (Auto) Eos % (Auto) Baso % (Auto) Lymph # (Auto) [place] # (Auto) Eos # (Auto) Baso # (Auto) Abs Immat Gran (auto) Absolute Neuts (auto) Absolute Nucleated RBC Nucleated RBC % Sodium Potassium Chloride Carbon Dioxide Anion Gap BUN Creatinine Estim Creat Clear Calc Estimated GFR Glucose POC Capillary Glucose 89 87 76 Calcium Magnesium Total Bilirubin AST ALT Alkaline Phosphatase Total Protein Albumin Vancomycin Trough 08/25/24 08/26/24 08/26/24 18:56 05:26 07:59 WBC 6.0 RBC 3.44 L Hgb 10.4 L Hct 33.0 L MCV 95.9 MCH 30.2 MCHC 31.5 L RDW 13.5 Plt Count 249 MPV 9.6 Immature Gran % (Auto) 0.2 Neut % (Auto) 66.6 Lymph % (Auto) 19.5 [place] % (Auto) 10.2 H Eos % (Auto) 3.0 Baso % (Auto) 0.5 Lymph # (Auto) 1.17 [place] # (Auto) 0.6 Eos # (Auto) 0.2 Baso # (Auto) 0.0 Abs Immat Gran (auto) 0.01 Absolute Neuts (auto) 4.0 Absolute Nucleated RBC 0.000 Nucleated RBC % 0.0 Sodium 137 Potassium 3.6 Chloride 103 Carbon Dioxide 28 Anion Gap 6 BUN 9 D Creatinine 0.63 L Estim Creat Clear Calc 69 Estimated GFR > 60 Glucose 91 POC Capillary Glucose 122 H 90 Calcium 8.4 Magnesium 1.7 Total Bilirubin 0.4 AST 23 ALT 20 Alkaline Phosphatase 95 Total Protein 6.0 L Albumin 2.9 L Vancomycin Trough 5.7 L 08/26/24 11:20 WBC RBC Hgb Hct MCV MCH MCHC RDW Plt Count MPV Immature Gran % (Auto) Neut % (Auto) Lymph % (Auto) [place] % (Auto) Eos % (Auto) Baso % (Auto) Lymph # (Auto) [place] # (Auto) Eos # (Auto) Baso # (Auto) Abs Immat Gran (auto) Absolute Neuts (auto) Absolute Nucleated RBC Nucleated RBC % Sodium Potassium Chloride Carbon Dioxide Anion Gap BUN Creatinine Estim Creat Clear Calc Estimated GFR Glucose POC Capillary Glucose 142 H Calcium Magnesium Total Bilirubin AST ALT Alkaline Phosphatase Total Protein Albumin Vancomycin Trough Quality VTE Prophylaxis VTE prophylaxis: mechanical ordered
[2024-08-26 13:56] VITALS: BP 113/74; PULSE 92; RESP 22; TEMP 36.3; O2SAT 98
[2024-08-26 17:16] LABS: Glucose Point of Care 98 mg/dl (65-105)
[2024-08-26 21:00] VITALS: BP 124/83; PULSE 84; RESP 20; TEMP 36.3; O2SAT 96
[2024-08-26 21:14] LABS: Glucose Point of Care 110 mg/dl (65-105)
[2024-08-27 04:55] VITALS: BP 127/71; PULSE 73; RESP 18; TEMP 36.2; O2SAT 97
[2024-08-27] MEDS: LEVOTHYROXINE SODIUM 150 MCG TABLET PO (05:46)
[2024-08-27 06:41] LABS: Basophils Percent Auto 0.6 % (0.2-1.2); Eosinophils Absolute Auto 0.3 K/mm3 (0-0.3); Eosinophils Percent Auto 5.2 % (0-4.4); Hematocrit 32.4 % (37.0-47.0); Hemoglobin 10.1 g/dL (12.0-15.0); Immature Granulocyte Absolute 0.02 K/mm3 (0.00-0.031); Immature Granulocyte Percent A 0.4 % (0-0.5); Lymphocytes Absolute Auto 1.14 K/mm3 (0.9-3.2); Lymphocytes Percent Auto 21.3 % (18.3-44.2); Mean Corpuscular HGB Conc 31.2 g/dl (32-36); Mean Corpuscular Hemoglobin 30.1 pg (26-34); Mean Corpuscular Volume 96.4 fl (80-100); Mean Platelet Volume 9.8 fl (7.4-10.4); Monocytes Absolute Auto 0.5 K/mm3 (0.1-0.6); Monocytes Percent Auto 8.6 % (2.6-8.5); Neutrophils Absolute Auto 3.4 K/mm3 (1.3-6.7); Neutrophils Percent Auto 63.9 % (45.5-73.1); Platelet Count Result 262 k/mm3 (150-375); Red Blood Count 3.36 M/mm3 (4.2-5.4); Red Cell Distribution Width 13.5 % (11.5-14.5); White Blood Count 5.3 K/mm3 (4.5-10.0)
[2024-08-27 06:51] LABS: Alanine Aminotransferase 20 U/L (6-35); Albumin Level 2.8 g/dL (3.5-5.1); Alkaline Phosphatase 94 U/L (38-126); Anion Gap 6 mmol/L (4-12); Aspartate Amino Transferase 21 U/L (14-36); Bilirubin,Total 0.3 mg/dL (0.2-1.3); Blood Urea Nitrogen 11 mg/dL (7-17); Calcium 8.7 mg/dL (8.4-10.2); Carbon Dioxide 27 mmol/L (22-30); Chloride 104 mmol/L (98-107); Estimated CRCL calculation 68 ml/min; Estimated Glomerular Filt Rate > 60; Glucose 97 mg/dL (65-110); Magnesium 1.6 mg/dL (1.6-2.3); Potassium 3.8 mmol/L (3.4-5.0); Sodium 137 mmol/L (137-145)
[2024-08-27 07:45] LABS: Glucose Point of Care 105 mg/dl (65-105)
[2024-08-27] MEDS: AMOXICILLIN/CLAVULANATE K 875-125 MG TAB 1 TABLET PO (08:32)
[2024-08-27] MEDS: CHOLECALCIFEROL 1,000 UNITS TABLET 1000 UNITS PO (08:32)
[2024-08-27] MEDS: amLODIPine BESYLATE 5 MG TABLET PO (08:32)
[2024-08-27] MEDS: SPIRONOLACTONE 50 MG TABLET PO (08:32)
[2024-08-27] MEDS: PANTOPRAZOLE 40 MG TABLET PO (08:32)
[2024-08-27] MEDS: SIMVASTATIN 10 MG TABLET PO (08:32)
[2024-08-27] MEDS: DOXYCYCLINE HYCLATE 100 MG TABLET PO (08:33)
[2024-08-27] MEDS: HYDROcodone/acetaminophen (*CRX) 5-325 MG TABLET 1 TAB PO (08:45)
--- NOTE | 2024-08-27 09:19 | PM.DS ---
DS: Admitting Diagnosis Discharge Date 08/27/24 DS: Discharge Diagnosis Discharge Diagnosis (1) ANTONETTE (acute kidney injury): Code(s): N17.9 - Acute kidney failure, unspecified Status: Acute (2) UTI (urinary tract infection): Code(s): N39.0 - Urinary tract infection, site not specified Status: Acute (3) Cellulitis of right lower leg: Code(s): L03.115 - Cellulitis of right lower limb Status: Acute (4) Right ankle swelling: Code(s): M25.471 - Effusion, right ankle Status: Acute (5) Multiple falls: Code(s): R29.6 - Repeated falls Status: Acute (6) Adult failure to thrive: Code(s): R62.7 - Adult failure to thrive Status: Acute (7) Essential hypertension: Code(s): I10 - Essential (primary) hypertension Status: Acute (8) Mixed hyperlipidemia: Code(s): E78.2 - Mixed hyperlipidemia Status: Acute (9) Prediabetes: Code(s): R73.03 - Prediabetes Status: Acute DS: Summary Time Spent with Patient Time attestation: Total time spent providing and/or coordinating discharge services: Exam Narrative: General: In no acute distress, well nourished, talkative Cardiac: Normal S1 and S2. RRR, No murmur, gallops or friction rubs, peripheral pulses intact. Respiratory: Lungs clear to auscultation, no adventitious lung sounds, currently on room air Gastrointestinal: soft, non-distended, non-tender, normoactive bowel sounds : voiding without difficulty. Extremities: moves all extremities well, edema right ankle Skin: right foot and ankle wrapped in OR dressing, good capillary refill Neuro: Alert and oriented x4 DS: Data Data Completed and Pending Labs on day of discharge: Labs from last 24 hours 08/27/24 08/27/24 08/26/24 07:24 06:01 21:05 WBC 5.3 RBC 3.36 L Hgb 10.1 L Hct 32.4 L MCV 96.4 MCH 30.1 MCHC 31.2 L RDW 13.5 Plt Count 262 MPV 9.8 Immature Gran % (Auto) 0.4 Neut % (Auto) 63.9 Lymph % (Auto) 21.3 [place] % (Auto) 8.6 H Eos % (Auto) 5.2 H Baso % (Auto) 0.6 Lymph # (Auto) 1.14 [place] # (Auto) 0.5 Eos # (Auto) 0.3 Baso # (Auto) 0.0 Abs Immat Gran (auto) 0.02 Absolute Neuts (auto) 3.4 Absolute Nucleated RBC 0.000 Nucleated RBC % 0.0 Sodium 137 Potassium 3.8 Chloride 104 Carbon Dioxide 27 Anion Gap 6 BUN 11 Creatinine 0.64 L Estim Creat Clear Calc 68 Estimated GFR > 60 Glucose 97 POC Capillary Glucose 105 110 H Calcium 8.7 Magnesium 1.6 Total Bilirubin 0.3 AST 21 ALT 20 Alkaline Phosphatase 94 Total Protein 6.0 L Albumin 2.8 L 08/26/24 08/26/24 17:06 11:20 WBC RBC Hgb Hct MCV MCH MCHC RDW Plt Count MPV Immature Gran % (Auto) Neut % (Auto) Lymph % (Auto) [place] % (Auto) Eos % (Auto) Baso % (Auto) Lymph # (Auto) [place] # (Auto) Eos # (Auto) Baso # (Auto) Abs Immat Gran (auto) Absolute Neuts (auto) Absolute Nucleated RBC Nucleated RBC % Sodium Potassium Chloride Carbon Dioxide Anion Gap BUN Creatinine Estim Creat Clear Calc Estimated GFR Glucose POC Capillary Glucose 98 142 H Calcium Magnesium Total Bilirubin AST ALT Alkaline Phosphatase Total Protein Albumin Preliminary micro results at discharge 08/25/24 15:45 Anaerobic Culture - Preliminary Ankle Right 08/24/24 15:18 Anaerobic Culture - Preliminary Synovial Fluid Right Ankle Aerobic Culture - Preliminary Staphylococcus aureus 08/24/24 05:14 Blood Culture - Preliminary Blood 08/24/24 05:14 Blood Culture - Preliminary Blood Discharge Plan Discharge Attending physician on discharge: Raissa Munoz Consulting providers: Stefany Salamanca; Chacorta Godoy Discharging Clinician: Lisha Carroll Anticipated Discharge Date/Time: 08/27/24 09:13 Patient Disposition: SNF Activity: as tolerated Diet: as tolerated and diabetic Discharge Instructions: Continue to take your antibiotics as directed. Finish the prescription even if you are feeling better Follow up with Orthopedic surgery in 2 weeks Follow up with primary care doctor as needed. Patient Language: Filipino Stand Alone Forms: General Discharge Information Follow-up/Referrals: Chacorta Godoy MD [Physician] - 2 Weeks Rubi Grace MD [Primary Care Provider] - 2 Weeks Discharge Medications: New hydrocodone-acetaminophen 5-325 mg Tablet 1 tablet PO Q4H PRN (Reason: Pain Rated 4-6) Qty: 10 0RF doxycycline hyclate 100 mg Tablet 100 mg PO Q12HR Qty: 54 0RF amoxicillin-pot clavulanate 875-125 mg tablet 1 tablet PO Q12H Qty: 54 0RF Continued cholecalciferol (vitamin D3) 25 mcg (1,000 unit) capsule 25 mcg PO DAILY levothyroxine 150 mcg tablet 150 mcg PO DAILY Qty: 90 3RF cephalexin 500 mg capsule 500 mg PO Q6H Qty: 28 0RF simvastatin 10 mg tablet 10 mg PO DAILY Qty: 90 1RF spironolactone 50 mg tablet 50 mg PO DAILY Qty: 90 1RF amlodipine 5 mg tablet 5 mg PO DAILY Qty: 90 1RF metformin 500 mg tablet extended release 24 hr 500 mg PO HS Qty: 90 1RF benazepril 40 mg tablet 40 mg PO DAILY Qty: 90 1RF Date of admission: 08/24/24 07:11 Primary Care Provider: Rubi Grace Admitting Provider: Ariana Rosas Attending physician on admission: Lisha Carroll Condition: Improved Quality VTE Prophylaxis VTE prophylaxis: mechanical ordered
[2024-08-27 11:54] LABS: Glucose Point of Care 155 mg/dl (65-105)
[2024-08-27 12:38] LABS: SARS-CoV-2 RNA PCR Negative (Negative)
[2024-08-27 13:48] VITALS: BP 138/92; PULSE 91; RESP 16; TEMP 36.4; O2SAT 94
== END 2024-08-27 16:00 | DRG 493 ==
LOC: ANHED 08-24 04:30 → ANH3MEDSUR 08-24 04:51
PROVIDERS: Nurse Practitioner; Nurse Practitioner Family; Orthopaedic Surgery; Admitting Provider Family Medicine; Emergency Provider Student in an Organized Health Care Education/Training Program; PCP Family Medicine; Visit Provider Nurse Practitioner Acute Care
PROC: 0SBF4ZZ Excision of Right Ankle Joint, Percutaneous Endoscopic Approach (ICD-10-PCS; principal; 2024-08-25 14:00)
DX: M00.071 Staphylococcal arthritis, right ankle and foot (principal); F01.518 Vascular dementia, unspecified severity, with other behavioral disturbance; L03.115 Cellulitis of right lower limb; N17.9 Acute kidney failure, unspecified; N39.0 Urinary tract infection, site not specified; B95.62 Methicillin resistant Staphylococcus aureus infection as the cause of diseases classified elsewhere; M25.471 Effusion, right ankle; R62.7 Adult failure to thrive; E78.2 Mixed hyperlipidemia; I10 Essential (primary) hypertension; R73.03 Prediabetes; E86.0 Dehydration; N32.81 Overactive bladder; I89.8 Other specified noninfective disorders of lymphatic vessels and lymph nodes; R29.6 Repeated falls; Z85.828 Personal history of other malignant neoplasm of skin; Z90.710 Acquired absence of both cervix and uterus; Z90.722 Acquired absence of ovaries, bilateral; Z86.73 Personal history of transient ischemic attack (TIA), and cerebral infarction without residual deficits
CPT/HCPCS: 20610; 36415; 71275; 73701; 77002; 80053; 80202; 81001; 82550; 82948; 83036; 83605; 83735; 83880; 84145; 84550; 85025; 85380; 85610; 85652; 85730; 86140; 87040; 87070; 87075; 87086; 87181; 87205; 87635; 93971; 96361; 96365; 96366; 96367; 96375; 96376; 97162; 97165; 99285; A9270; G0378; J0696; J1100; J2405; J2704; J3010; J3370; J3475; J7030; J7040; J7120; Q9967